=== PATIENT | male | born 1945 | race Caucasian/White ===

== ENCOUNTER 2018-02-09 07:49 | Inpatient (IN) | payer MEDICARE ==
[~2018-02-09] VITALS: Ht 175.3 cm; Wt 105.9 kg
[~2018-02-09 07:49] MED LIST: ALBU90OI INH; AZIT250 PO
[2018-02-09 08:10] LABS: BASOPHILS ABSOLUTE AUTO 0.07 K/mm3 (0.00-0.23); BASOPHILS PERCENT AUTO 0 % (0-2); EOSINOPHILS PERCENT AUTO 0 % (0-6); Hematocrit 49.6 % (37.0-53.0); Hemoglobin 15.8 g/dL (13.5-17.5); IMMATURE GRAN ABSOLUTE AUTO 0.25 K/mm3 (0.00-0.10); IMMATURE GRAN PERCENT AUTO 1 % (0-1); LYMPHOCYTES ABSOLUTE AUTO 0.74 K/mm3 (0.84-5.20); LYMPHOCYTES PERCENT AUTO 3 % (21-46); MONOCYTES ABSOLUTE AUTO 2.31 K/mm3 (0.16-1.47); MONOCYTES PERCENT AUTO 8 % (4-13); Mean Corpuscular HGB 31.2 pg (26.0-34.0); Mean Corpuscular HGB Conc 31.9 g/dL (31.5-36.5); Mean Corpuscular Volume 98 fL (80-100); Mean Platelet Volume 9.3 fL (9.1-12.4); NEUTROPHILS ABSOLUTE AUTO 25.66 K/mm3 (1.96-9.15); NEUTROPHILS PERCENT AUTO 88 % (41-73); Platelet Count 323 K/mm3 (150-400); RDW Coefficient Variation 14.1 % (11.7-14.2); RDW Standard Deviation 51.6 fL (35.1-46.3); Red Blood Cell Count 5.06 M/mm3 (4.30-5.90); White Blood Cell Count 29.03 K/mm3 (4.00-11.30)
[2018-02-09 08:36] LABS: Magnesium, Blood 2.5 mg/dL (1.6-2.4); Troponin I 0.029 ng/mL (0.000-0.040)
[2018-02-09 08:38] LABS: Source, Urine Catheter
[2018-02-09 08:38] LABS: Albumin, Blood 2.9 g/dL (3.4-5.0); Albumin/Globulin Ratio 0.5 (0.8-1.8); Bilirubin, Total 0.6 mg/dL (0.1-1.0); Bun/Creatinine Ratio 18.1 (12.0-20.0); Calcium, Blood 8.7 mg/dL (8.5-10.1); Creatinine, Blood 1.71 mg/dL (0.60-1.20); Globulin, Blood 5.7 g/dL (2.2-4.0); Potassium, Blood 5.7 mmol/L (3.5-5.5); Thyroid Stimulating Hormone 5.44 uIU/mL (0.360-4.800); Total Protein, Blood 8.6 g/dL (6.4-8.2)
[2018-02-09 08:39] LABS: PCO2 Arterial 89.5 mmHg (35-45); PO2 Arterial 346 mmHg (80-100); pH Blood Arterial 7.15 (7.35-7.45)
[2018-02-09 08:44] LABS: Bilirubin, Urine Neg (Neg); Blood, Urine 1+ (Neg); Glucose Qualitative, Urine Neg (Neg); Ketones, Urine Neg (Neg); Leukocyte Esterase, Urine Neg (Neg); Nitrite, Urine Neg (Neg); Protein, Urine 3+ (Neg); Urobilinogen, Urine NORM (Normal)
[2018-02-09 08:54] LABS: Appearance, Urine Clear (Clear); Color, Urine Yellow (P-Yellow)
[2018-02-09 08:57] LABS: Red Blood Cells, Urine 0-2 /hpf (0-2); Squamous Epithelial Cells Not Seen /hpf (Few); White Blood Cells, Urine Not Seen /hpf (0-5)
[2018-02-09 08:58] LABS: Bacteria Not Seen /hpf
[2018-02-09 09:05] LABS: U Amphetamine Screen Not Detected; U Barbituate Screen Not Detected; U Benzodiazapine Screen Not Detected; U Buprenorphine Screen Not Detected; U Cannabinoids Screen DETECTED; U Cocaine Screen Not Detected; U Methadone Screen Not Detected; U Methamphetamine Screen Not Detected; U Opiates Screen Not Detected; U Oxycodone Screen Not Detected; U Phencyclidine Screen Not Detected; U Propoxyphene Screen Not Detected
[2018-02-09 11:03] LABS: International Normalized Ratio 1.17; Prothrombin Time Results 12.2 Sec (9.7-11.5)
[2018-02-09] MEDS ORDERED: SPIRIVA RESPIMAT4 G1 INH (14:57)
[2018-02-09] MEDS ORDERED: ALBU3IS INH (14:57)
[2018-02-09] MEDS ORDERED: AMLO10 PO (14:58)
[2018-02-09] MEDS ORDERED: ASPI81CH PO (14:58)
[2018-02-09] MEDS ORDERED: ATOR20 PO (14:59)
[2018-02-09] MEDS ORDERED: ZESTORETIC 20-121 EA PO (15:00)
[2018-02-09 15:39] LABS: PO2 Arterial 66.2 mmHg (80-100)
[2018-02-09 15:40] LABS: PCO2 Arterial 87.3 mmHg (35-45)
[2018-02-09 16:27] LABS: Hematocrit 42.7 % (37.0-53.0); Hemoglobin 13.6 g/dL (13.5-17.5)
[2018-02-09 16:52] LABS: Bun/Creatinine Ratio 21.8 (12.0-20.0); Calcium, Blood 7.5 mg/dL (8.5-10.1); Creatinine, Blood 1.79 mg/dL (0.60-1.20); Potassium, Blood 4.5 mmol/L (3.5-5.5); Troponin I 0.137 ng/mL (0.000-0.040)
[2018-02-10 03:37] LABS: Hematocrit 41.9 % (37.0-53.0); Hemoglobin 13.6 g/dL (13.5-17.5); Mean Corpuscular HGB 31.2 pg (26.0-34.0); Mean Corpuscular HGB Conc 32.5 g/dL (31.5-36.5); Mean Corpuscular Volume 96 fL (80-100); Mean Platelet Volume 9.1 fL (9.1-12.4); Platelet Count 255 K/mm3 (150-400); RDW Coefficient Variation 13.8 % (11.7-14.2); RDW Standard Deviation 49.5 fL (35.1-46.3); Red Blood Cell Count 4.36 M/mm3 (4.30-5.90); White Blood Cell Count 26.78 K/mm3 (4.00-11.30)
[2018-02-10 04:00] LABS: BAND PERCENT MAN 20 % (0-8); BASOPHILS PERCENT MAN 0 % (0-2); EOSINOPHILS PERCENT MAN 0 % (0-6); LYMPHOCYTES ABSOLUTE MAN 0.26 K/mm3 (0.84-5.20); LYMPHOCYTES PERCENT MAN 1 % (21-46); METAMYELOCYTE ABSOLUTE MAN 0.26 K/mm3 (0.00-0.00); METAMYELOCYTE PERCENT MAN 1 % (0-0); MONOCYTES PERCENT MAN 3 % (4-13); NEUTROPHILS ABSOLUTE MAN 25.44 K/mm3 (1.96-9.15); SEG NEUTROPHILS PERCENT MAN 75 % (41-73); TOTAL CELLS COUNTED 100
[2018-02-10 04:04] LABS: Albumin, Blood 2.2 g/dL (3.4-5.0); Albumin/Globulin Ratio 0.5 (0.8-1.8); Bilirubin, Total 0.4 mg/dL (0.1-1.0); Bun/Creatinine Ratio 27.5 (12.0-20.0); Creatinine, Blood 1.42 mg/dL (0.60-1.20); Globulin, Blood 4.3 g/dL (2.2-4.0); Potassium, Blood 4.1 mmol/L (3.5-5.5); Total Protein, Blood 6.5 g/dL (6.4-8.2)
[2018-02-10 05:24] LABS: PCO2 Arterial 68.5 mmHg (35-45); PO2 Arterial 65.2 mmHg (80-100); pH Blood Arterial 7.29 (7.35-7.45)
[2018-02-11 03:51] LABS: Hematocrit 37.9 % (37.0-53.0); Hemoglobin 12.4 g/dL (13.5-17.5); Mean Corpuscular HGB 31.4 pg (26.0-34.0); Mean Corpuscular HGB Conc 32.7 g/dL (31.5-36.5); Mean Corpuscular Volume 96 fL (80-100); NRBC ABSOLUTE 0.02 K/mm3 (0.00-0.02); NRBC Auto 0.1 /100 WBC (0.0-0.2); Platelet Count 239 K/mm3 (150-400); RDW Standard Deviation 49.9 fL (35.1-46.3); Red Blood Cell Count 3.95 M/mm3 (4.30-5.90)
[2018-02-11 04:08] LABS: Alanine Aminotransfer (ALT/SGP 694 U/L (12-78); Albumin/Globulin Ratio 0.5 (0.8-1.8); Alk Phos 80 U/L (50-136); Anion Gap 5 mmol/L (6-16); Aspartate Aminotrans (AST/SGOT 411 U/L (12-37); Bilirubin, Direct 0.1 mg/dL (0.0-0.3); Bilirubin, Indirect 0.2 mg/dL (0.1-0.7); Bilirubin, Total 0.3 mg/dL (0.1-1.0); Blood Urea Nitrogen 37 mg/dL (8-24); Bun/Creatinine Ratio 37.8 (12.0-20.0); CO2, Blood 34 mmol/L (21-32); Calcium, Blood 7.7 mg/dL (8.5-10.1); Chloride, Blood 96 mmol/L (98-108); Creatinine, Blood 0.98 mg/dL (0.60-1.20); Glomerular Filtration Rate >60 (60-); Glucose, Blood 143 mg/dL (70-99); Magnesium, Blood 2.2 mg/dL (1.6-2.4); Phosphorus, Blood 1.2 mg/dL (2.5-4.9); Potassium, Blood 3.9 mmol/L (3.5-5.5); Sodium, Blood 135 mmol/L (136-145); Vancomycin, Random 7.4 ug/mL
[2018-02-11 04:27] LABS: BAND PERCENT MAN 9 % (0-8); BASOPHILS PERCENT MAN 0 % (0-2); EOSINOPHILS PERCENT MAN 0 % (0-6); LYMPHOCYTES ABSOLUTE MAN 0.17 K/mm3 (0.84-5.20); LYMPHOCYTES PERCENT MAN 1 % (21-46); MONOCYTES ABSOLUTE MAN 0.17 K/mm3 (0.16-1.47); MONOCYTES PERCENT MAN 1 % (4-13); NEUTROPHILS ABSOLUTE MAN 16.95 K/mm3 (1.96-9.15); SEG NEUTROPHILS PERCENT MAN 89 % (41-73); TOTAL CELLS COUNTED 100
[2018-02-11 05:08] LABS: PCO2 Arterial 66.4 mmHg (35-45); PO2 Arterial 65.4 mmHg (80-100); pH Blood Arterial 7.34 (7.35-7.45)
[2018-02-12 03:22] LABS: Hematocrit 40.4 % (37.0-53.0); Hemoglobin 12.7 g/dL (13.5-17.5); Mean Corpuscular HGB 30.6 pg (26.0-34.0); Mean Corpuscular HGB Conc 31.4 g/dL (31.5-36.5); Mean Corpuscular Volume 97 fL (80-100); Mean Platelet Volume 8.7 fL (9.1-12.4); Platelet Count 248 K/mm3 (150-400); RDW Coefficient Variation 14.6 % (11.7-14.2); RDW Standard Deviation 51.8 fL (35.1-46.3); Red Blood Cell Count 4.15 M/mm3 (4.30-5.90); White Blood Cell Count 17.87 K/mm3 (4.00-11.30)
[2018-02-12 03:40] LABS: Magnesium, Blood 2.4 mg/dL (1.6-2.4)
[2018-02-12 03:41] LABS: Alanine Aminotransfer (ALT/SGP 569 U/L (12-78); Albumin, Blood 2.1 g/dL (3.4-5.0); Albumin/Globulin Ratio 0.5 (0.8-1.8); Alk Phos 80 U/L (50-136); Anion Gap 4 mmol/L (6-16); Aspartate Aminotrans (AST/SGOT 206 U/L (12-37); Bilirubin, Total 0.3 mg/dL (0.1-1.0); Blood Urea Nitrogen 32 mg/dL (8-24); Bun/Creatinine Ratio 35.5 (12.0-20.0); CO2, Blood 36 mmol/L (21-32); Calcium, Blood 7.8 mg/dL (8.5-10.1); Chloride, Blood 101 mmol/L (98-108); Globulin, Blood 4.1 g/dL (2.2-4.0); Glomerular Filtration Rate >60 (60-); Glucose, Blood 157 mg/dL (70-99); Phosphorus, Blood 2.4 mg/dL (2.5-4.9); Potassium, Blood 4.4 mmol/L (3.5-5.5); Sodium, Blood 141 mmol/L (136-145); Total Protein, Blood 6.2 g/dL (6.4-8.2)
[2018-02-12 03:50] LABS: BAND PERCENT MAN 4 % (0-8); BASOPHILS PERCENT MAN 0 % (0-2); EOSINOPHILS PERCENT MAN 0 % (0-6); LYMPHOCYTES ABSOLUTE MAN 0.35 K/mm3 (0.84-5.20); LYMPHOCYTES PERCENT MAN 2 % (21-46); MONOCYTES ABSOLUTE MAN 0.89 K/mm3 (0.16-1.47); MONOCYTES PERCENT MAN 5 % (4-13); MYELOCYTE ABSOLUTE MAN 0.17 K/mm3 (0.00-0.00); MYELOCYTE PERCENT MAN 1 % (0-0); NEUTROPHILS ABSOLUTE MAN 16.44 K/mm3 (1.96-9.15); SEG NEUTROPHILS PERCENT MAN 88 % (41-73); TOTAL CELLS COUNTED 100
[2018-02-12 04:58] LABS: PCO2 Arterial 75.8 mmHg (35-45); PO2 Arterial 71.8 mmHg (80-100)
[2018-02-13 03:43] LABS: BASOPHILS ABSOLUTE AUTO 0.04 K/mm3 (0.00-0.23); BASOPHILS PERCENT AUTO 0 % (0-2); EOSINOPHILS PERCENT AUTO 0 % (0-6); Hematocrit 42.4 % (37.0-53.0); Hemoglobin 13.2 g/dL (13.5-17.5); IMMATURE GRAN ABSOLUTE AUTO 0.28 K/mm3 (0.00-0.10); IMMATURE GRAN PERCENT AUTO 2 % (0-1); LYMPHOCYTES ABSOLUTE AUTO 0.41 K/mm3 (0.84-5.20); LYMPHOCYTES PERCENT AUTO 3 % (21-46); MONOCYTES ABSOLUTE AUTO 0.91 K/mm3 (0.16-1.47); MONOCYTES PERCENT AUTO 7 % (4-13); Mean Corpuscular HGB 30.6 pg (26.0-34.0); Mean Corpuscular HGB Conc 31.1 g/dL (31.5-36.5); Mean Corpuscular Volume 98 fL (80-100); Mean Platelet Volume 8.6 fL (9.1-12.4); NEUTROPHILS ABSOLUTE AUTO 11.37 K/mm3 (1.96-9.15); NEUTROPHILS PERCENT AUTO 87 % (41-73); Platelet Count 219 K/mm3 (150-400); RDW Coefficient Variation 14.6 % (11.7-14.2); RDW Standard Deviation 52.9 fL (35.1-46.3); Red Blood Cell Count 4.32 M/mm3 (4.30-5.90); White Blood Cell Count 13.01 K/mm3 (4.00-11.30)
[2018-02-13 04:00] LABS: Alanine Aminotransfer (ALT/SGP 421 U/L (12-78); Albumin, Blood 2.2 g/dL (3.4-5.0); Albumin/Globulin Ratio 0.6 (0.8-1.8); Alk Phos 75 U/L (50-136); Anion Gap 3 mmol/L (6-16); Aspartate Aminotrans (AST/SGOT 89 U/L (12-37); Bilirubin, Total 0.2 mg/dL (0.1-1.0); Blood Urea Nitrogen 39 mg/dL (8-24); Bun/Creatinine Ratio 48.7 (12.0-20.0); CO2, Blood 37 mmol/L (21-32); Calcium, Blood 8.2 mg/dL (8.5-10.1); Chloride, Blood 105 mmol/L (98-108); Glomerular Filtration Rate >60 (60-); Glucose, Blood 171 mg/dL (70-99); Phosphorus, Blood 2.2 mg/dL (2.5-4.9); Potassium, Blood 4.7 mmol/L (3.5-5.5); Sodium, Blood 145 mmol/L (136-145); Total Protein, Blood 6.2 g/dL (6.4-8.2)
[2018-02-13 04:13] LABS: BASOPHILS PERCENT MAN 0 % (0-2); EOSINOPHILS PERCENT MAN 0 % (0-6); LYMPHOCYTES ABSOLUTE MAN 0.39 K/mm3 (0.84-5.20); LYMPHOCYTES PERCENT MAN 3 % (21-46); MONOCYTES ABSOLUTE MAN 0.39 K/mm3 (0.16-1.47); MONOCYTES PERCENT MAN 3 % (4-13); MYELOCYTE ABSOLUTE MAN 0.13 K/mm3 (0.00-0.00); MYELOCYTE PERCENT MAN 1 % (0-0); NEUTROPHILS ABSOLUTE MAN 11.96 K/mm3 (1.96-9.15); PROMYELOCYTE ABSOLUTE MAN 0.13 K/mm3 (0.00-0.00); PROMYELOCYTE PERCENT MAN 1 % (0-0); SEG NEUTROPHILS PERCENT MAN 92 % (41-73); TOTAL CELLS COUNTED 100
[2018-02-13 05:32] LABS: PCO2 Arterial 74.6 mmHg (35-45); PO2 Arterial 63.2 mmHg (80-100); pH Blood Arterial 7.32 (7.35-7.45)
[2018-02-13 08:36] LABS: Vancomycin, Trough 7.2 ug/mL (5.0-10.0)
[2018-02-14 04:46] LABS: BASOPHILS PERCENT AUTO 1 % (0-2); EOSINOPHILS PERCENT AUTO 0 % (0-6); Hematocrit 43.6 % (37.0-53.0); Hemoglobin 13.6 g/dL (13.5-17.5); IMMATURE GRAN ABSOLUTE AUTO 0.58 K/mm3 (0.00-0.10); IMMATURE GRAN PERCENT AUTO 5 % (0-1); LYMPHOCYTES ABSOLUTE AUTO 0.61 K/mm3 (0.84-5.20); LYMPHOCYTES PERCENT AUTO 5 % (21-46); MONOCYTES ABSOLUTE AUTO 0.97 K/mm3 (0.16-1.47); MONOCYTES PERCENT AUTO 8 % (4-13); Mean Corpuscular HGB 30.4 pg (26.0-34.0); Mean Corpuscular HGB Conc 31.2 g/dL (31.5-36.5); Mean Corpuscular Volume 98 fL (80-100); Mean Platelet Volume 8.7 fL (9.1-12.4); NEUTROPHILS ABSOLUTE AUTO 10.66 K/mm3 (1.96-9.15); NEUTROPHILS PERCENT AUTO 83 % (41-73); Platelet Count 221 K/mm3 (150-400); RDW Coefficient Variation 14.7 % (11.7-14.2); RDW Standard Deviation 53.3 fL (35.1-46.3); Red Blood Cell Count 4.47 M/mm3 (4.30-5.90); White Blood Cell Count 12.92 K/mm3 (4.00-11.30)
[2018-02-14 05:16] LABS: Anion Gap 4 mmol/L (6-16); Blood Urea Nitrogen 38 mg/dL (8-24); Bun/Creatinine Ratio 48.7 (12.0-20.0); CO2, Blood 35 mmol/L (21-32); Calcium, Blood 8.2 mg/dL (8.5-10.1); Chloride, Blood 107 mmol/L (98-108); Creatinine, Blood 0.78 mg/dL (0.60-1.20); Glomerular Filtration Rate >60 (60-); Glucose, Blood 139 mg/dL (70-99); Phosphorus, Blood 2.7 mg/dL (2.5-4.9); Potassium, Blood 4.9 mmol/L (3.5-5.5); Sodium, Blood 146 mmol/L (136-145)
[2018-02-14 05:24] LABS: PCO2 Arterial 69.7 mmHg (35-45); PO2 Arterial 61.5 mmHg (80-100); pH Blood Arterial 7.38 (7.35-7.45)
[2018-02-15 03:54] LABS: BASOPHILS ABSOLUTE AUTO 0.06 K/mm3 (0.00-0.23); BASOPHILS PERCENT AUTO 1 % (0-2); EOSINOPHILS PERCENT AUTO 0 % (0-6); Hematocrit 43.9 % (37.0-53.0); Hemoglobin 13.8 g/dL (13.5-17.5); IMMATURE GRAN ABSOLUTE AUTO 0.57 K/mm3 (0.00-0.10); IMMATURE GRAN PERCENT AUTO 5 % (0-1); LYMPHOCYTES ABSOLUTE AUTO 0.54 K/mm3 (0.84-5.20); LYMPHOCYTES PERCENT AUTO 5 % (21-46); MONOCYTES ABSOLUTE AUTO 0.81 K/mm3 (0.16-1.47); MONOCYTES PERCENT AUTO 7 % (4-13); Mean Corpuscular HGB 30.6 pg (26.0-34.0); Mean Corpuscular HGB Conc 31.4 g/dL (31.5-36.5); Mean Corpuscular Volume 97 fL (80-100); Mean Platelet Volume 8.5 fL (9.1-12.4); NEUTROPHILS ABSOLUTE AUTO 9.81 K/mm3 (1.96-9.15); NEUTROPHILS PERCENT AUTO 83 % (41-73); NRBC ABSOLUTE 0.02 K/mm3 (0.00-0.02); NRBC Auto 0.2 /100 WBC (0.0-0.2); Platelet Count 202 K/mm3 (150-400); RDW Coefficient Variation 14.4 % (11.7-14.2); RDW Standard Deviation 52.1 fL (35.1-46.3); Red Blood Cell Count 4.51 M/mm3 (4.30-5.90); White Blood Cell Count 11.79 K/mm3 (4.00-11.30)
[2018-02-15 04:11] LABS: Alanine Aminotransfer (ALT/SGP 236 U/L (12-78); Albumin, Blood 2.3 g/dL (3.4-5.0); Albumin/Globulin Ratio 0.6 (0.8-1.8); Alk Phos 71 U/L (50-136); Anion Gap 1 mmol/L (6-16); Aspartate Aminotrans (AST/SGOT 44 U/L (12-37); Bilirubin, Total 0.4 mg/dL (0.1-1.0); Blood Urea Nitrogen 36 mg/dL (8-24); Bun/Creatinine Ratio 51.7 (12.0-20.0); CO2, Blood 41 mmol/L (21-32); Calcium, Blood 8.3 mg/dL (8.5-10.1); Chloride, Blood 103 mmol/L (98-108); Globulin, Blood 3.9 g/dL (2.2-4.0); Glomerular Filtration Rate >60 (60-); Glucose, Blood 136 mg/dL (70-99); Potassium, Blood 5.3 mmol/L (3.5-5.5); Sodium, Blood 145 mmol/L (136-145); Total Protein, Blood 6.2 g/dL (6.4-8.2)
[2018-02-16 04:23] LABS: BASOPHILS ABSOLUTE AUTO 0.06 K/mm3 (0.00-0.23); BASOPHILS PERCENT AUTO 1 % (0-2); EOSINOPHILS PERCENT AUTO 0 % (0-6); Hematocrit 43.5 % (37.0-53.0); Hemoglobin 13.9 g/dL (13.5-17.5); IMMATURE GRAN ABSOLUTE AUTO 0.57 K/mm3 (0.00-0.10); IMMATURE GRAN PERCENT AUTO 4 % (0-1); LYMPHOCYTES ABSOLUTE AUTO 0.45 K/mm3 (0.84-5.20); LYMPHOCYTES PERCENT AUTO 3 % (21-46); MONOCYTES ABSOLUTE AUTO 0.83 K/mm3 (0.16-1.47); MONOCYTES PERCENT AUTO 6 % (4-13); Mean Corpuscular HGB 30.5 pg (26.0-34.0); Mean Corpuscular Volume 95 fL (80-100); Mean Platelet Volume 8.7 fL (9.1-12.4); NEUTROPHILS ABSOLUTE AUTO 11.18 K/mm3 (1.96-9.15); NEUTROPHILS PERCENT AUTO 85 % (41-73); Platelet Count 192 K/mm3 (150-400); RDW Coefficient Variation 14.3 % (11.7-14.2); RDW Standard Deviation 50.1 fL (35.1-46.3); Red Blood Cell Count 4.56 M/mm3 (4.30-5.90); White Blood Cell Count 13.09 K/mm3 (4.00-11.30)
[2018-02-16 04:49] LABS: Alanine Aminotransfer (ALT/SGP 169 U/L (12-78); Albumin, Blood 2.2 g/dL (3.4-5.0); Albumin/Globulin Ratio 0.6 (0.8-1.8); Alk Phos 63 U/L (50-136); Anion Gap 4 mmol/L (6-16); Aspartate Aminotrans (AST/SGOT 33 U/L (12-37); Bilirubin, Total 0.7 mg/dL (0.1-1.0); Blood Urea Nitrogen 36 mg/dL (8-24); Bun/Creatinine Ratio 50.6 (12.0-20.0); CO2, Blood 40 mmol/L (21-32); Calcium, Blood 8.3 mg/dL (8.5-10.1); Chloride, Blood 98 mmol/L (98-108); Creatinine, Blood 0.71 mg/dL (0.60-1.20); Globulin, Blood 3.7 g/dL (2.2-4.0); Glomerular Filtration Rate >60 (60-); Glucose, Blood 156 mg/dL (70-99); Sodium, Blood 142 mmol/L (136-145); Total Protein, Blood 5.9 g/dL (6.4-8.2)
[2018-02-17 04:12] LABS: BASOPHILS ABSOLUTE AUTO 0.03 K/mm3 (0.00-0.23); BASOPHILS PERCENT AUTO 0 % (0-2); EOSINOPHILS PERCENT AUTO 0 % (0-6); Hematocrit 43.1 % (37.0-53.0); Hemoglobin 13.8 g/dL (13.5-17.5); IMMATURE GRAN ABSOLUTE AUTO 0.48 K/mm3 (0.00-0.10); IMMATURE GRAN PERCENT AUTO 4 % (0-1); LYMPHOCYTES ABSOLUTE AUTO 0.69 K/mm3 (0.84-5.20); LYMPHOCYTES PERCENT AUTO 5 % (21-46); MONOCYTES ABSOLUTE AUTO 1.16 K/mm3 (0.16-1.47); MONOCYTES PERCENT AUTO 9 % (4-13); Mean Corpuscular HGB 30.7 pg (26.0-34.0); Mean Corpuscular Volume 96 fL (80-100); Mean Platelet Volume 8.7 fL (9.1-12.4); NEUTROPHILS ABSOLUTE AUTO 10.83 K/mm3 (1.96-9.15); NEUTROPHILS PERCENT AUTO 82 % (41-73); Platelet Count 169 K/mm3 (150-400); RDW Coefficient Variation 14.2 % (11.7-14.2); RDW Standard Deviation 50.3 fL (35.1-46.3); White Blood Cell Count 13.19 K/mm3 (4.00-11.30)
[2018-02-17 04:29] LABS: Alanine Aminotransfer (ALT/SGP 129 U/L (12-78); Albumin, Blood 2.3 g/dL (3.4-5.0); Albumin/Globulin Ratio 0.7 (0.8-1.8); Alk Phos 60 U/L (50-136); Anion Gap 3 mmol/L (6-16); Aspartate Aminotrans (AST/SGOT 30 U/L (12-37); Bilirubin, Total 0.5 mg/dL (0.1-1.0); Blood Urea Nitrogen 32 mg/dL (8-24); CO2, Blood 41 mmol/L (21-32); Calcium, Blood 8.1 mg/dL (8.5-10.1); Chloride, Blood 98 mmol/L (98-108); Globulin, Blood 3.5 g/dL (2.2-4.0); Glomerular Filtration Rate >60 (60-); Glucose, Blood 115 mg/dL (70-99); Potassium, Blood 4.8 mmol/L (3.5-5.5); Sodium, Blood 142 mmol/L (136-145); Total Protein, Blood 5.8 g/dL (6.4-8.2)
[2018-02-18 06:08] LABS: BASOPHILS ABSOLUTE AUTO 0.03 K/mm3 (0.00-0.23); BASOPHILS PERCENT AUTO 0 % (0-2); EOSINOPHILS ABSOLUTE AUTO 0.01 K/mm3 (0.00-0.68); EOSINOPHILS PERCENT AUTO 0 % (0-6); Hemoglobin 13.8 g/dL (13.5-17.5); IMMATURE GRAN ABSOLUTE AUTO 0.35 K/mm3 (0.00-0.10); IMMATURE GRAN PERCENT AUTO 3 % (0-1); LYMPHOCYTES ABSOLUTE AUTO 1.25 K/mm3 (0.84-5.20); LYMPHOCYTES PERCENT AUTO 10 % (21-46); MONOCYTES PERCENT AUTO 10 % (4-13); Mean Corpuscular HGB 30.7 pg (26.0-34.0); Mean Corpuscular HGB Conc 32.1 g/dL (31.5-36.5); Mean Corpuscular Volume 96 fL (80-100); NEUTROPHILS ABSOLUTE AUTO 9.59 K/mm3 (1.96-9.15); NEUTROPHILS PERCENT AUTO 77 % (41-73); Platelet Count 160 K/mm3 (150-400); RDW Coefficient Variation 14.1 % (11.7-14.2); RDW Standard Deviation 49.8 fL (35.1-46.3); Red Blood Cell Count 4.49 M/mm3 (4.30-5.90); White Blood Cell Count 12.53 K/mm3 (4.00-11.30)
[2018-02-18 06:28] LABS: Alanine Aminotransfer (ALT/SGP 104 U/L (12-78); Albumin, Blood 2.2 g/dL (3.4-5.0); Albumin/Globulin Ratio 0.6 (0.8-1.8); Alk Phos 60 U/L (50-136); Anion Gap 2 mmol/L (6-16); Aspartate Aminotrans (AST/SGOT 32 U/L (12-37); Bilirubin, Total 0.6 mg/dL (0.1-1.0); Blood Urea Nitrogen 30 mg/dL (8-24); Bun/Creatinine Ratio 44.4 (12.0-20.0); CO2, Blood 41 mmol/L (21-32); Chloride, Blood 97 mmol/L (98-108); Creatinine, Blood 0.68 mg/dL (0.60-1.20); Globulin, Blood 3.5 g/dL (2.2-4.0); Glomerular Filtration Rate >60 (60-); Glucose, Blood 120 mg/dL (70-99); Potassium, Blood 4.9 mmol/L (3.5-5.5); Sodium, Blood 140 mmol/L (136-145); Total Protein, Blood 5.7 g/dL (6.4-8.2)
[2018-02-20 06:46] LABS: Hematocrit 42.7 % (37.0-53.0); Hemoglobin 13.9 g/dL (13.5-17.5); Mean Corpuscular HGB 30.8 pg (26.0-34.0); Mean Corpuscular HGB Conc 32.6 g/dL (31.5-36.5); Mean Corpuscular Volume 95 fL (80-100); Mean Platelet Volume 9.7 fL (9.1-12.4); Platelet Count 166 K/mm3 (150-400); RDW Standard Deviation 48.8 fL (35.1-46.3); Red Blood Cell Count 4.52 M/mm3 (4.30-5.90); White Blood Cell Count 13.64 K/mm3 (4.00-11.30)
[2018-02-20 07:13] LABS: Albumin, Blood 2.4 g/dL (3.4-5.0); Anion Gap 3 mmol/L (6-16); Blood Urea Nitrogen 24 mg/dL (8-24); CO2, Blood 38 mmol/L (21-32); Calcium, Blood 8.1 mg/dL (8.5-10.1); Chloride, Blood 96 mmol/L (98-108); Creatinine, Blood 0.71 mg/dL (0.60-1.20); Glomerular Filtration Rate >60 (60-); Glucose, Blood 74 mg/dL (70-99); Phosphorus, Blood 3.3 mg/dL (2.5-4.9); Potassium, Blood 4.4 mmol/L (3.5-5.5); Sodium, Blood 137 mmol/L (136-145)
[2018-02-22] MEDS ORDERED: ALBU90OI INH (09:41)
[2018-02-22] MEDS ORDERED: Ipratr-Albuterol3 ML INH (09:41)
[2018-02-22] MEDS ORDERED: DOCU100 PO (09:42)
[2018-02-22] MEDS ORDERED: BUDE.5 INH (09:42)
[2018-02-22] MEDS ORDERED: GUAI600T33 PO (09:42)
[2018-02-22] MEDS ORDERED: PRED10 PO (09:43)
[2018-02-22] MEDS ORDERED: CEFU500T30 PO (09:44)
== END 2018-02-23 13:58 | disposition home or self-care (01) | DRG 871 ==
LOC: ER 07:49 → ICUW 09:07 → MEDS 02-17 10:40 → ENPENDDIS 02-22 23:33 → MEDS 02-23 13:58
PROVIDERS: Emergency Medicine; Internal Medicine; Internal Medicine Critical Care Medicine; Internal Medicine Pulmonary Disease; Pharmacist
PROC: 0BH17EZ Insertion of Endotracheal Airway into Trachea, Via Natural or Artificial Opening (ICD-10-PCS; principal; 2018-02-09)
PROC: 5A1945Z Respiratory Ventilation, 24-96 Consecutive Hours (ICD-10-PCS; 2018-02-09)
PROC: 02HV33Z Insertion of Infusion Device into Superior Vena Cava, Percutaneous Approach (ICD-10-PCS; 2018-02-09)
PROC: 3E033XZ Introduction of Vasopressor into Peripheral Vein, Percutaneous Approach (ICD-10-PCS; 2018-02-11)
DX: A41.3 Sepsis due to Hemophilus influenzae (principal); J96.21 Acute and chronic respiratory failure with hypoxia; J96.22 Acute and chronic respiratory failure with hypercapnia; R65.21 Severe sepsis with septic shock; I21.4 Non-ST elevation (NSTEMI) myocardial infarction; J15.6 Pneumonia due to other Gram-negative bacteria; J15.8 Pneumonia due to other specified bacteria; J44.1 Chronic obstructive pulmonary disease with (acute) exacerbation; G93.1 Anoxic brain damage, not elsewhere classified; N17.9 Acute kidney failure, unspecified; J44.0 Chronic obstructive pulmonary disease with (acute) lower respiratory infection; E87.1 Hypo-osmolality and hyponatremia; Z68.41 Body mass index [BMI] 40.0-44.9, adult; I95.9 Hypotension, unspecified; E78.5 Hyperlipidemia, unspecified; I27.81 Cor pulmonale (chronic); I11.0 Hypertensive heart disease with heart failure; I50.810 Right heart failure, unspecified; E11.9 Type 2 diabetes mellitus without complications; Z79.4 Long term (current) use of insulin; R79.89 Other specified abnormal findings of blood chemistry; F17.210 Nicotine dependence, cigarettes, uncomplicated; R74.0 Nonspecific elevation of levels of transaminase and lactic acid dehydrogenase [LDH]; R53.81 Other malaise; E87.5 Hyperkalemia; E66.01 Morbid (severe) obesity due to excess calories
CPT/HCPCS: 31500; 31720; 36556; 36600; 51702; 70450; 71045; 71250; 74176; 80048; 80053; 80069; 80076; 80202; 81001; 82330; 82803; 82947; 83605; 83735; 83880; 84100; 84443; 84484; 85014; 85018; 85025; 85027; 85610; 87040; 87070; 87077; 87185; 87186; 87205; 93005; 93010; 93306; 94002; 94003; 94640; 94644; 94660; 94762; 96365; 96375; 96376; 97110; 97116; 97140; 97162; 97166; 97530; 97535; 99291; 99292; C1751; C9113; G8978; G8979; G8987; G8988; J0610; J0696; J1650; J1815; J1940; J1956; J2250; J2930; J3370; J7030; J7050; J7060; J7120

== ENCOUNTER 2018-06-14 11:54 | Day surgery (SDC) | payer OTHER, MEDICARE ==
[~2018-06-14] VITALS: Ht 172.7 cm; Wt 103.0 kg
[~2018-06-14 11:54] MED LIST changes: +ALBU3IS INH; +AMLO10 PO; +ASPI81CH PO; +ATOR20 PO; +BUDE.5 INH; +CEFU500T30 PO; +DOCU100 PO; +GUAI600T33 PO; +Ipratr-Albuterol3 ML INH; +PRED10 PO; +SPIRIVA RESPIMAT4 G1 INH; +ZESTORETIC 20-121 EA PO
[2018-06-14] MEDS ORDERED: TIOT18 (12:30)
== END 2018-06-14 11:55 | disposition home or self-care (01) ==
LOC: ORSCSDS 11:54
PROVIDERS: Internal Medicine Gastroenterology
PROC: 0DBK8ZX Excision of Ascending Colon, Via Natural or Artificial Opening Endoscopic, Diagnostic (ICD-10-PCS; principal; 2018-06-14 13:15)
PROC: 0DBP8ZX Excision of Rectum, Via Natural or Artificial Opening Endoscopic, Diagnostic (ICD-10-PCS; principal; 2018-06-14 13:15)
PROC: 0DBL8ZX Excision of Transverse Colon, Via Natural or Artificial Opening Endoscopic, Diagnostic (ICD-10-PCS; principal; 2018-06-14 13:15)
PROC: 0DBM8ZX Excision of Descending Colon, Via Natural or Artificial Opening Endoscopic, Diagnostic (ICD-10-PCS; principal; 2018-06-14 13:15)
DX: Z86.010 Personal history of colon polyps (principal); D12.3 Benign neoplasm of transverse colon; D12.2 Benign neoplasm of ascending colon; D12.4 Benign neoplasm of descending colon; D12.8 Benign neoplasm of rectum; K57.30 Diverticulosis of large intestine without perforation or abscess without bleeding; K64.8 Other hemorrhoids; I10 Essential (primary) hypertension; J44.9 Chronic obstructive pulmonary disease, unspecified; Z99.81 Dependence on supplemental oxygen; Z79.899 Other long term (current) drug therapy; Z79.82 Long term (current) use of aspirin
CPT/HCPCS: J2405; J7120

== ENCOUNTER 2020-07-03 12:30 | Day surgery (SDC) | payer OTHER, MEDICARE ==
[~2020-07-03] VITALS: Ht 167.6 cm; Wt 106.0 kg
[~2020-07-03 12:30] MED LIST changes: +ALBU8HFA2 INH; +ATOR40TA PO; +Aspir 8181 MG PO; +LISI20 PO; +TIOT18; +TIOT18 INH
--- NOTE | 2020-07-03 13:38 | NUR ---
07/03/20 1338 Rosalie Blackburn IV ATTEMPTS X4, 4TH IV ATTEMPT WAS SUCCESSFUL TO LEFT HAND. PT TOLERATED WELL.
== END 2020-07-03 15:20 | disposition home or self-care (01) ==
LOC: ORSCSDS 12:30
DX: Z12.11 Encounter for screening for malignant neoplasm of colon (principal); Z86.010 Personal history of colon polyps; K64.8 Other hemorrhoids; K64.4 Residual hemorrhoidal skin tags; K57.30 Diverticulosis of large intestine without perforation or abscess without bleeding; I10 Essential (primary) hypertension; J44.9 Chronic obstructive pulmonary disease, unspecified; F32.9 Major depressive disorder, single episode, unspecified; Z87.891 Personal history of nicotine dependence; G47.33 Obstructive sleep apnea (adult) (pediatric); E66.9 Obesity, unspecified; Z68.36 Body mass index [BMI] 36.0-36.9, adult; Z79.82 Long term (current) use of aspirin; Z79.899 Other long term (current) drug therapy
CPT/HCPCS: 88305; J2704; J7120

== ENCOUNTER 2024-08-01 12:37 | Inpatient (IN) | payer OTHER ==
[~2024-08-01] VITALS: Ht 175.3 cm; Wt 108.9 kg
[2024-08-01] VITALS (7 sets, daily range): BP systolic 118–136; BP diastolic 63–74
[2024-08-01 13:10] LABS: Hematocrit 19.3 % (37.0-53.0); Hemoglobin 6.7 g/dL (13.5-17.5); Mean Corpuscular HGB 32.5 pg (26.0-34.0); Mean Corpuscular HGB Conc 34.7 g/dL (31.5-36.5); Mean Corpuscular Volume 94 fL (80-100); Mean Platelet Volume 11.3 fL (9.1-12.4); Platelet Count 79 K/mm3 (150-400); RDW Coefficient Variation 13.2 % (11.7-14.2); RDW Standard Deviation 45.1 fL (35.1-46.3); Red Blood Cell Count 2.06 M/mm3 (4.30-5.90); White Blood Cell Count 13.52 K/mm3 (4.00-11.30)
[2024-08-01] MEDS ORDERED: STIOLTO RESPIMAT4 G1 INH (14:43)
[2024-08-01] MEDS ORDERED: Lisinopril-Hct1 EAC4 PO (14:44)
[2024-08-01] MEDS ORDERED: DECADRON4 M1 PO (14:44)
[2024-08-01] MEDS ORDERED: FOLI1 PO (14:45)
[2024-08-01 15:08] LABS: BAND PERCENT MAN 15 % (0-8); BASOPHILS PERCENT MAN 0 % (0-2); EOSINOPHILS PERCENT MAN 0 % (0-6); LYMPHOCYTES PERCENT MAN 3 % (21-46); METAMYELOCYTE ABSOLUTE MAN 0.27 K/mm3 (0.00-0.00); METAMYELOCYTE PERCENT MAN 2 % (0-0); MONOCYTES ABSOLUTE MAN 0.94 K/mm3 (0.16-1.47); MONOCYTES PERCENT MAN 7 % (4-13); MYELOCYTE ABSOLUTE MAN 0.13 K/mm3 (0.00-0.00); MYELOCYTE PERCENT MAN 1 % (0-0); NEUTROPHILS ABSOLUTE MAN 11.76 K/mm3 (1.96-9.15); SEG NEUTROPHILS PERCENT MAN 72 % (41-73); TOTAL CELLS COUNTED 100
[2024-08-01] MEDS ORDERED: Ondansetron HCl 2 MG / ML 2ML Vial IV PRN (16:00)
[2024-08-01] MEDS ORDERED: HydrALAZINE HCl 20 MG / ML 1ML Vial IV PRN (16:00)
[2024-08-01] MEDS ORDERED: FLU VACC TS2024-25(6MOS UP)/PF 45 MCG/0.5 ML SYRINGE IM SCH (16:00)
[2024-08-01] MEDS ORDERED: NS 1,000 ML IV SCH (16:00)
[2024-08-01] MEDS ORDERED: Potassium Chloride 20 MEQ TabCR PO ONE (16:05)
[2024-08-01] MEDS ORDERED: Magnesium Hydroxide Conc 10 ML UDC PO PRN (16:05)
[2024-08-01] MEDS ORDERED: Albuterol HFA200 ACT/6.7 GM INH INH PRN (16:05)
[2024-08-01] MEDS ORDERED: Ipratropium/Albuterol SulF 2.5-0.5MG/3 ML Amp INH SCH (16:15)
[2024-08-01 16:24] LABS: Percent Saturation 12.7 % (20.0-50.0)
--- NOTE | 2024-08-01 19:03 | NUR ---
SHIFT SUMMARY PT ARRIVED ON UNIT AT 1750 AND AMBULATED INDEPENDENTLY TO THE BED. 1ST BAG OF PRBC INFUSED WITH NO CONCERNS. NO ADVERSE REACTIONS NOTED. VSS, NO COMPLAINTS OF CP/PRESSURE. PT INDEPENDENTLY REPOSITIONED. NO ACUTE EVENTS AT THIS TIME. FALL PRECAUTIONS IN PLACE AND CALL LIGHT IN REACH.
[2024-08-01] MEDS ORDERED: dexAMETHasone 4 MG TAB PO SCH (21:00)
[2024-08-02 04:31] VITALS: BP 111/60
--- NOTE | 2024-08-02 05:17 | NUR ---
STONE POLISHER HAND SUMMARY NO ACUTE EVENTS OVERNIGHT. PT HAS RECEIVED 2 UNITS OF BLOOD SINCE COMING INTO THE HOSPITAL. HE STILL ENDORSES SOB WITH EXERTION AND AN INCREASED RESPIRATORY RATE HAS BEEN NOTED ON HIS TRIPS TO THE BATHROOM. NO SIGNS OF BLEEDING. PT DENIES WEAKNESS OR DIZZINESS ASSOCIATED WITH HIS ANEMIA.
[2024-08-02 05:55] LABS: Hematocrit 23.8 % (37.0-53.0); Hemoglobin 8.5 g/dL (13.5-17.5); Mean Corpuscular HGB Conc 35.7 g/dL (31.5-36.5); Platelet Count 112 K/mm3 (150-400); RDW Coefficient Variation 14.6 % (11.7-14.2); RDW Standard Deviation 46.4 fL (35.1-46.3); Red Blood Cell Count 2.74 M/mm3 (4.30-5.90); White Blood Cell Count 13.52 K/mm3 (4.00-11.30)
[2024-08-02 06:40] LABS: Bun/Creatinine Ratio 24.8 (12.0-20.0); Calcium, Blood 8.3 mg/dL (8.5-10.1); Creatinine, Blood 2.58 mg/dL (0.60-1.20); Potassium, Blood 3.7 mmol/L (3.5-5.5)
[2024-08-02 07:37] VITALS: BP 109/57
[2024-08-02 07:49] LABS: Mean Corpuscular Volume 87 fL (80-100)
[2024-08-02] MEDS ORDERED: Folic Acid 1 MG TAB PO SCH (09:00)
[2024-08-02] MEDS ORDERED: Aspirin 81 MG TabEC PO SCH (09:00)
[2024-08-02] MEDS ORDERED: AmLODIPine Besylate 5 MG Tab PO SCH (09:00)
[2024-08-02 14:32] VITALS: BP 120/61
[2024-08-02] MEDS ORDERED: Acetaminophen 325 MG TABLET PO PRN (15:00)
--- NOTE | 2024-08-02 18:13 | NUR ---
REPORT RECEIVED VERIFIED. A/O X4 KASHIA MAKES NEEDS KNOWN, PT VSS AND HAS NO COMPLAINTS. POSSIBLE DISCHARGE TODAY AND IS AWAITING ON MD
--- NOTE | 2024-08-02 18:15 | NUR ---
PT TAKEN FOR CHEST XRAY, AFTER RETURNED MD INTO SEE PT AND WILL MAKE A DECISION ONCE XRAY RESULTS BACK.
--- NOTE | 2024-08-02 18:16 | NUR ---
PT HAD ADDITIONAL LABS DRAWN AND WILL BE STAYING THE NIGHT. PT ALSO SPIKED A FEVER LEADING TO BLOOD CULTURES TO BE DRAWN,
[2024-08-02 19:22] VITALS: BP 120/61
[2024-08-03 02:07] VITALS: BP 104/57
--- NOTE | 2024-08-03 03:58 | NUR ---
INSULATION POWER UNIT TENDER SUMMARY NO ACUTE EVENTS OVERNIGHT. PT CONTINUES TO EXPERIENCE SOB WITH EXERTION, NOTED THAT HIS RESPIRATORY RATE CLIMBED TO ABOUT 30 ON HIS SHORT WALK TO THE BATHROOM. NO DIZZINESS OR WEAKNESS. NO SIGNS OF BLEEDING. POSSIBLE D/C TODAY. IF VQ SCAN IS WNL
[2024-08-03 07:15] VITALS: BP 114/62
[2024-08-03 07:54] LABS: Hematocrit 24.3 % (37.0-53.0); Hemoglobin 8.3 g/dL (13.5-17.5); Mean Corpuscular HGB 31.1 pg (26.0-34.0); Mean Corpuscular HGB Conc 34.2 g/dL (31.5-36.5); Mean Corpuscular Volume 91 fL (80-100); Platelet Count 152 K/mm3 (150-400); RDW Coefficient Variation 14.5 % (11.7-14.2); RDW Standard Deviation 47.9 fL (35.1-46.3); Red Blood Cell Count 2.67 M/mm3 (4.30-5.90); White Blood Cell Count 14.74 K/mm3 (4.00-11.30)
[2024-08-03] MEDS ORDERED: Amoxicillin/Clavulanate K 500 MG Tab PO SCH (09:00)
[2024-08-03] MEDS ORDERED: AMOCLA500 PO (11:55)
--- NOTE | 2024-08-03 12:34 | NUR ---
1235 DISCHARGED TO HOME WITH SPOUSE. BOTH VERBALIZE UNDERSTANDING OF DISCHARGE INSTRUCTIONS AND DENY ANY QUESTIONS REGARDING DISCHARGE
--- NOTE | 2024-08-03 14:17 | NUR ---
REPORT RECEIVED VERIFIED, PT A/O X 4 VSS, PT DOWN VQ SCAN AND IS AWAITING POSSIBLE DISCHARGE.
--- NOTE | 2024-08-03 14:19 | NUR ---
PT BACK FROM STUDY NO CHANGE. DISCHARGE ORDERS GIVEN AND IMPLEMENTED. IV DCED MONITOR REMOVED. PT TAKEN DOWNSTAIRS
== END 2024-08-03 12:33 | disposition home or self-care (01) | DRG 811 ==
LOC: ER 12:37 → MEDS 12:38
PROVIDERS: Emergency Medicine; ADMIT Internal Medicine
PROC: 30233N1 Transfusion of Nonautologous Red Blood Cells into Peripheral Vein, Percutaneous Approach (ICD-10-PCS; principal; 2024-08-01)
DX: D64.81 Anemia due to antineoplastic chemotherapy (principal); J18.9 Pneumonia, unspecified organism; C34.90 Malignant neoplasm of unspecified part of unspecified bronchus or lung; N17.9 Acute kidney failure, unspecified; N18.4 Chronic kidney disease, stage 4 (severe); I12.9 Hypertensive chronic kidney disease with stage 1 through stage 4 chronic kidney disease, or unspecified chronic kidney disease; T45.1X5A Adverse effect of antineoplastic and immunosuppressive drugs, initial encounter; D69.6 Thrombocytopenia, unspecified; E87.6 Hypokalemia; Z79.82 Long term (current) use of aspirin; Z79.899 Other long term (current) drug therapy; Z90.49 Acquired absence of other specified parts of digestive tract; Z87.891 Personal history of nicotine dependence
CPT/HCPCS: 36415; 36430; 71046; 78580; 80048; 82728; 83540; 83550; 85025; 85027; 85379; 86850; 86900; 86901; 86923; 94640; 94664; 94760; 99284-25; A9270; A9540; G0378; J7030; P9016

== ENCOUNTER 2024-09-10 14:53 | Observation (INO) | payer OTHER ==
[~2024-09-10] VITALS: Ht 175.3 cm; Wt 104.3 kg
[~2024-09-10 14:53] MED LIST changes: +AMOCLA500 PO; +DECADRON4 M1 PO; +FOLI1 PO; +Lisinopril-Hct1 EAC4 PO; +STIOLTO RESPIMAT4 G1 INH
[2024-09-10 15:36] LABS: BASOPHILS ABSOLUTE AUTO 0.02 K/mm3 (0.00-0.23); BASOPHILS PERCENT AUTO 0 % (0-2); EOSINOPHILS ABSOLUTE AUTO 0.21 K/mm3 (0.00-0.68); EOSINOPHILS PERCENT AUTO 3 % (0-6); IMMATURE GRAN ABSOLUTE AUTO 0.05 K/mm3 (0.00-0.10); IMMATURE GRAN PERCENT AUTO 1 % (0-1); LYMPHOCYTES ABSOLUTE AUTO 0.66 K/mm3 (0.84-5.20); LYMPHOCYTES PERCENT AUTO 9 % (21-46); MONOCYTES ABSOLUTE AUTO 1.47 K/mm3 (0.16-1.47); MONOCYTES PERCENT AUTO 19 % (4-13); Mean Corpuscular HGB 31.1 pg (26.0-34.0); Mean Corpuscular HGB Conc 33.7 g/dL (31.5-36.5); Mean Corpuscular Volume 92 fL (80-100); Mean Platelet Volume 8.9 fL (9.1-12.4); NEUTROPHILS ABSOLUTE AUTO 5.23 K/mm3 (1.96-9.15); NEUTROPHILS PERCENT AUTO 69 % (41-73); Platelet Count 293 K/mm3 (150-400); RDW Coefficient Variation 15.3 % (11.7-14.2); RDW Standard Deviation 51.4 fL (35.1-46.3); White Blood Cell Count 7.64 K/mm3 (4.00-11.30)
[2024-09-10 15:40] LABS: Hematocrit 16.6 % (37.0-53.0); Hemoglobin 5.6 g/dL (13.5-17.5)
[2024-09-10 15:58] LABS: Albumin, Blood 2.3 g/dL (3.4-5.0); Albumin/Globulin Ratio 0.4 (0.8-1.8); Bilirubin, Total 0.5 mg/dL (0.1-1.0); Calcium, Blood 8.3 mg/dL (8.5-10.1); Creatinine, Blood 3.01 mg/dL (0.60-1.20); Globulin, Blood 5.6 g/dL (2.2-4.0); Potassium, Blood 2.8 mmol/L (3.5-5.5); Total Protein, Blood 7.9 g/dL (6.4-8.2)
[2024-09-10] MEDS ORDERED: Ipratropium/Albuterol SulF 2.5-0.5MG/3 ML Amp INH PRN (18:55)
[2024-09-10] MEDS ORDERED: Potassium Chloride 20 MEQ/15 ML UDC PO ONE (19:40)
[2024-09-10] MEDS ORDERED: Potassium Chl 20MEQ/Water100ML 100 ML IV ONE (19:40)
[2024-09-10] MEDS ORDERED: Albuterol 2.5 MG/3 ML VIAL INH PRN (20:20)
[2024-09-10] MEDS ORDERED: FLU VACC TS2024-25(6MOS UP)/PF 45 MCG/0.5 ML SYRINGE IM ONE (20:25)
[2024-09-10] MEDS ORDERED: Ondansetron HCl 2 MG / ML 2ML Vial IV PRN (20:25)
[2024-09-10] MEDS ORDERED: Ipratropium/Albuterol SulF 2.5-0.5MG/3 ML Amp INH SCH (20:25)
[2024-09-10] MEDS ORDERED: Furosemide 10 MG/ML 4ML Vial IV SCH (21:00)
[2024-09-10 21:15] LABS: Percent Saturation 9.2 % (20.0-50.0); Thyroid Stimulating Hormone 2.11 uIU/mL (0.360-4.800)
[2024-09-10 22:29] LABS: IMMATURE RETIC FRACTION 15.8 % (2.3-16.0); RETIC HGB EQUIVALENT 29.1 pg (28.20-36.60); RETICULOCYTE ABSOLUTE 0.0559 M/mm3 (0.0200-0.1100); RETICULOCYTE COUNT PERCENT 2.84 % (0.50-2.50)
[2024-09-11 04:00] LABS: Hematocrit 20.4 % (37.0-53.0); Hemoglobin 7.1 g/dL (13.5-17.5); Mean Corpuscular HGB 31.4 pg (26.0-34.0); Mean Corpuscular HGB Conc 34.8 g/dL (31.5-36.5); Mean Corpuscular Volume 90 fL (80-100); Mean Platelet Volume 9.1 fL (9.1-12.4); Platelet Count 267 K/mm3 (150-400); RDW Coefficient Variation 14.8 % (11.7-14.2); RDW Standard Deviation 48.6 fL (35.1-46.3); Red Blood Cell Count 2.26 M/mm3 (4.30-5.90); White Blood Cell Count 8.66 K/mm3 (4.00-11.30)
[2024-09-11 04:38] LABS: Magnesium, Blood 1.9 mg/dL (1.6-2.4)
[2024-09-11 04:39] LABS: Albumin, Blood 2.3 g/dL (3.4-5.0); Albumin/Globulin Ratio 0.4 (0.8-1.8); Bilirubin, Total 1.4 mg/dL (0.1-1.0); Calcium, Blood 8.2 mg/dL (8.5-10.1); Creatinine, Blood 2.94 mg/dL (0.60-1.20); Globulin, Blood 5.4 g/dL (2.2-4.0); Potassium, Blood 2.9 mmol/L (3.5-5.5); Total Protein, Blood 7.7 g/dL (6.4-8.2)
[2024-09-11] MEDS ORDERED: Potassium Chloride 20 MEQ TabCR PO ONE (07:30)
[2024-09-11] MEDS ORDERED: Iron Dextran 50 MG / ML 2ML Vial IV ONE (07:40)
[2024-09-11 08:24] LABS: Hematocrit 21.4 % (37.0-53.0); Hemoglobin 7.3 g/dL (13.5-17.5)
[2024-09-11] MEDS ORDERED: Metoprolol Tartrate 25 MG Tab PO SCH (09:00)
[2024-09-11] MEDS ORDERED: AmLODIPine Besylate 5 MG Tab PO SCH (09:00)
[2024-09-11] MEDS ORDERED: Iron Dextran 975 MG in NS 250 ML IV ONE (09:00)
[2024-09-11 09:24] VITALS: BP 138/82
[2024-09-11 09:28] LABS: Hematocrit 22.2 % (37.0-53.0); Hemoglobin 7.5 g/dL (13.5-17.5)
--- NOTE | 2024-09-11 10:28 | NUR ---
ARRIVAL TO UNIT AFTER RECEIVING REPORT FROM ED RN, PATIENT TRANSFERRED TO UNIT AT APPROX 0915. PATIENT ALERT AND ORIENTED X4. IS [place] - COMMUNICATES NEEDS EFFECTIVELY. WEARING HEARING AIDES. VSS. TELEMETRY SHOWING SINUS 80s PER BOAT PILOT. ON ROOM AIR, SATs >90%. MILD SHORTNESS OF BREATH AT REST, SHORTNESS OF BREATH INCREASES WITH ACTIVITY. USES CPAP WITH 2L BLEED IN WITH SLEEP - HX OF SRAVAN. ABLE TO STAND AND TRANSFER FROM ED GURNEY TO BED WITH SBA. VOIDING. CALL LIGHT IN REACH.
[2024-09-11 14:14] VITALS: BP 129/64
--- NOTE | 2024-09-11 17:36 | NUR ---
SHIFT SUMMARY NO ACUTE EVENTS SINCE PREVIOUS DOCUMENTATION. PATIENT REMAINS ALERT AND ORIENTED X4. COMMUNICATES NEEDS EFFECTIVELY. VSS. NO EVENTS REPORTED BY TRAINING AND DEVELOPMENT MANAGER. REMAINS ON ROOM AIR. CONTINUED SHORTNESS OF BREATH NOTED WITH REST AND ACTIVITY. H/H REMAINS STABLE - HGB >7. DENIES BLOODY STOOL. UP TO RESTROOM WITH SBA. VOIDING. CALL LIGHT IN REACH. WILL CONTINUE TO MONITOR AND REPORT TO ONCOMING RN.
[2024-09-11 20:20] VITALS: BP 136/71
[2024-09-11] MEDS ORDERED: Tamsulosin HCl 0.4 MG Cap PO SCH (21:00)
[2024-09-12 04:27] VITALS: BP 132/67
[2024-09-12 05:04] LABS: Hematocrit 24.7 % (37.0-53.0); Hemoglobin 8.4 g/dL (13.5-17.5); Mean Corpuscular HGB 31.6 pg (26.0-34.0); Mean Corpuscular Volume 93 fL (80-100); Mean Platelet Volume 9.1 fL (9.1-12.4); Platelet Count 337 K/mm3 (150-400); RDW Coefficient Variation 15.2 % (11.7-14.2); RDW Standard Deviation 51.9 fL (35.1-46.3); Red Blood Cell Count 2.66 M/mm3 (4.30-5.90)
[2024-09-12 05:31] LABS: Creatinine, Blood 2.93 mg/dL (0.60-1.20); Potassium, Blood 3.1 mmol/L (3.5-5.5)
--- NOTE | 2024-09-12 07:06 | NUR ---
SHIFT SUMMARY NOC. PT ADMIT FOR ANEMIA. PT A/O X4. PT WASHOE AND WEARS AIDS. PT VOIDING URINE AND TOLERATING DIET. PT VSS, TELEMETRY INTACT AND NO REPORTED EVENTS. H&H IMPROVING. PT MAKES NEEDS KNOWN, CALL LIGHT IN REACH.
[2024-09-12 07:16] VITALS: BP 137/61
[2024-09-12] MEDS ORDERED: Potassium Chloride 20 MEQ TabCR PO ONE (08:05)
[2024-09-12] MEDS ORDERED: TAMS.4ER PO (08:48)
[2024-09-12] MEDS ORDERED: Lopressor 25 mg25 MG PO (08:48)
--- NOTE | 2024-09-12 10:14 | NUR ---
DISCHARGE NOTE THIS RN ASSUMED CARE AT APPROX 0715. VSS. SHORTNESS OF BREATH WITH MOBILITY NOTED - RECEIVED BREATHING TX FROM RT THIS MORNING. SATs >90% ON ROOM AIR. HEMOGLOBIN IMPROVED, >7. DC HOME ORDERED BY MD FELDMAN. PATIENT AGREEABLE WITH DC HOME. IV REMOVED. TELEMETRY REMOVED. DC EDUCATION PROVIDED TO BOTH PATIENT AND HIS - BOTH STATE UNDERSTANDING. PATIENT TRANSFERRED OFF UNIT TO PERSONAL VEHICLE VIA WHEELCHAIR AT APPROX 1010. PERSONAL BELONGINGS WITH PATIENT.
== END 2024-09-12 10:08 | disposition home or self-care (01) ==
LOC: ER 14:53 → ERHOLD 14:54 → SURS 20:20
PROVIDERS: Internal Medicine; Nurse Practitioner Acute Care; Physician Assistant; Student in an Organized Health Care Education/Training Program; ADMIT Internal Medicine
DX: D64.9 Anemia, unspecified (principal); C34.90 Malignant neoplasm of unspecified part of unspecified bronchus or lung; N17.9 Acute kidney failure, unspecified; I13.0 Hypertensive heart and chronic kidney disease with heart failure and stage 1 through stage 4 chronic kidney disease, or unspecified chronic kidney disease; N18.4 Chronic kidney disease, stage 4 (severe); I50.9 Heart failure, unspecified; E87.6 Hypokalemia; J44.9 Chronic obstructive pulmonary disease, unspecified; G47.33 Obstructive sleep apnea (adult) (pediatric); Z87.891 Personal history of nicotine dependence; Z66 Do not resuscitate
CPT/HCPCS: 36415; 36430; 71046; 76770; 80048; 80053; 82570; 82607; 82746; 83540; 83550; 83735; 83880; 84300; 84443; 84484; 85014; 85018; 85025; 85027; 85045; 86850; 86900; 86901; 86923; 93005; 93010; 93306; 94640; 94664; 94760; 94762; 96374; 96375; 96376; 99285-25; A9270; G0378; J1750; J1940; J3480; J7050; P9016

== ENCOUNTER 2024-09-19 13:45 | Inpatient (IN) | payer OTHER ==
[~2024-09-19] VITALS: Ht 175.3 cm; Wt 101.0 kg
[~2024-09-19 13:45] MED LIST changes: +Lopressor 25 mg25 MG PO; +TAMS.4ER PO
[2024-09-19 14:28] LABS: BASOPHILS ABSOLUTE AUTO 0.04 K/mm3 (0.00-0.23); BASOPHILS PERCENT AUTO 0 % (0-2); EOSINOPHILS ABSOLUTE AUTO 0.01 K/mm3 (0.00-0.68); EOSINOPHILS PERCENT AUTO 0 % (0-6); Hematocrit 25.2 % (37.0-53.0); Hemoglobin 8.2 g/dL (13.5-17.5); IMMATURE GRAN ABSOLUTE AUTO 0.22 K/mm3 (0.00-0.10); IMMATURE GRAN PERCENT AUTO 1 % (0-1); LYMPHOCYTES ABSOLUTE AUTO 0.36 K/mm3 (0.84-5.20); LYMPHOCYTES PERCENT AUTO 2 % (21-46); MONOCYTES ABSOLUTE AUTO 2.52 K/mm3 (0.16-1.47); MONOCYTES PERCENT AUTO 10 % (4-13); Mean Corpuscular HGB 31.2 pg (26.0-34.0); Mean Corpuscular HGB Conc 32.5 g/dL (31.5-36.5); Mean Corpuscular Volume 96 fL (80-100); Mean Platelet Volume 9.3 fL (9.1-12.4); NEUTROPHILS ABSOLUTE AUTO 21.18 K/mm3 (1.96-9.15); NEUTROPHILS PERCENT AUTO 87 % (41-73); Platelet Count 364 K/mm3 (150-400); RDW Coefficient Variation 14.7 % (11.7-14.2); RDW Standard Deviation 51.4 fL (35.1-46.3); Red Blood Cell Count 2.63 M/mm3 (4.30-5.90); White Blood Cell Count 24.33 K/mm3 (4.00-11.30)
[2024-09-19 14:38] LABS: Base Excess Venous 5.9 mmol/L; Bicarbonate Venous 29.1 mmol/L (24.0-30.0); PCO2 Venous 52.1 mmHg (38-42); pH Blood Venous 7.38 (7.34-7.37)
[2024-09-19 14:47] LABS: Albumin, Blood 2.1 g/dL (3.4-5.0); Albumin/Globulin Ratio 0.3 (0.8-1.8); Bilirubin, Total 0.5 mg/dL (0.1-1.0); Bun/Creatinine Ratio 19.7 (12.0-20.0); Creatinine, Blood 2.38 mg/dL (0.60-1.20); Globulin, Blood 6.3 g/dL (2.2-4.0); Potassium, Blood 3.4 mmol/L (3.5-5.5); Total Protein, Blood 8.4 g/dL (6.4-8.2)
[2024-09-19 15:17] LABS: Influenza A, PCR NEGATIVE (NEGATIVE); Influenza B, PCR NEGATIVE (NEGATIVE); Resp Syncytial Virus, PCR NEGATIVE (NEGATIVE); SARS-Cov-2 (COVID-19) PCR, MMC NEGATIVE (NEGATIVE)
[2024-09-19] MEDS ORDERED: Furosemide 10 MG / ML 2ML Vial IV ONE (15:45)
[2024-09-19] MEDS ORDERED: Cefepime HCl 2,000 MG in NS 100 ML IV ONE (15:45)
[2024-09-19] MEDS ORDERED: Ondansetron 4 MG TAB PO PRN (16:50)
[2024-09-19] MEDS ORDERED: FLU VACC TS2024-25(6MOS UP)/PF 45 MCG/0.5 ML SYRINGE IM SCH (16:50)
[2024-09-19] MEDS ORDERED: MethylPREDNISolone Sod Succ 125 MG Vial IV ONE (16:55)
[2024-09-19] MEDS ORDERED: Potassium Chloride 20 MEQ TabCR PO SCH (18:00)
[2024-09-19 18:08] LABS: Adenovirus Not Detected (NOT DETECT); Bordetella pertussis Not Detected (NOT DETECT); Chlamydophila pneumoniae Not Detected (NOT DETECT); Coronavirus 229E Not Detected (NOT DETECT); Coronavirus HKU1 Not Detected (NOT DETECT); Coronavirus NL63 Not Detected (NOT DETECT); Coronavirus OC43 Not Detected (NOT DETECT); Human Metapneumovirus Not Detected (NOT DETECT); Human Rhinovirus/Enterovirus Not Detected (NOT DETECT); Influenza A/2009-H1 Not Detected (NOT DETECT); Influenza A/H1 Not Detected (NOT DETECT); Influenza A/H3 Not Detected (NOT DETECT); Influenza B Not Detected (NOT DETECT); Mycoplasma pneumoniae Not Detected (NOT DETECT); Parainfluenza Virus 1 Not Detected (NOT DETECT); Parainfluenza Virus 2 Not Detected (NOT DETECT); Parainfluenza Virus 3 Not Detected (NOT DETECT); Parainfluenza Virus 4 Not Detected (NOT DETECT); Respiratory Syncytial Virus Not Detected (NOT DETECT); SARS-Cov-2 (COVID-19), BioFire Not Detected (NOT DETECT)
[2024-09-19 18:31] VITALS: BP 112/64
[2024-09-19] MEDS ORDERED: Ipratropium/Albuterol SulF 2.5-0.5MG/3 ML Amp INH SCH (19:30)
[2024-09-19] MEDS ORDERED: Albuterol 2.5 MG/3 ML VIAL INH PRN (19:30)
[2024-09-19 20:06] VITALS: BP 126/63
[2024-09-19] MEDS ORDERED: Lactobacil 2-S.Thermo-Bifido 1 1 Cap PO SCH (21:00)
[2024-09-19] MEDS ORDERED: Docusate Sodium 100 MG Cap PO SCH (21:00)
[2024-09-19 23:59] VITALS: BP 129/69
[2024-09-20 03:57] VITALS: BP 126/69
[2024-09-20 05:51] LABS: BASOPHILS ABSOLUTE AUTO 0.04 K/mm3 (0.00-0.23); BASOPHILS PERCENT AUTO 0 % (0-2); EOSINOPHILS ABSOLUTE AUTO 0.03 K/mm3 (0.00-0.68); EOSINOPHILS PERCENT AUTO 0 % (0-6); Hematocrit 23.8 % (37.0-53.0); Hemoglobin 7.5 g/dL (13.5-17.5); IMMATURE GRAN ABSOLUTE AUTO 0.15 K/mm3 (0.00-0.10); IMMATURE GRAN PERCENT AUTO 1 % (0-1); LYMPHOCYTES ABSOLUTE AUTO 0.26 K/mm3 (0.84-5.20); LYMPHOCYTES PERCENT AUTO 1 % (21-46); MONOCYTES ABSOLUTE AUTO 1.13 K/mm3 (0.16-1.47); MONOCYTES PERCENT AUTO 5 % (4-13); Mean Corpuscular HGB 30.6 pg (26.0-34.0); Mean Corpuscular HGB Conc 31.5 g/dL (31.5-36.5); Mean Corpuscular Volume 97 fL (80-100); Mean Platelet Volume 9.2 fL (9.1-12.4); NEUTROPHILS ABSOLUTE AUTO 20.38 K/mm3 (1.96-9.15); NEUTROPHILS PERCENT AUTO 93 % (41-73); Platelet Count 330 K/mm3 (150-400); RDW Coefficient Variation 14.6 % (11.7-14.2); RDW Standard Deviation 51.2 fL (35.1-46.3); Red Blood Cell Count 2.45 M/mm3 (4.30-5.90); White Blood Cell Count 21.99 K/mm3 (4.00-11.30)
[2024-09-20] MEDS ORDERED: Cefepime HCl 2,000 MG in NS 100 ML IV SCH (06:00)
[2024-09-20 06:24] LABS: Albumin/Globulin Ratio 0.3 (0.8-1.8); Bilirubin, Total 0.3 mg/dL (0.1-1.0); Bun/Creatinine Ratio 22.7 (12.0-20.0); Calcium, Blood 9.2 mg/dL (8.5-10.1); Creatinine, Blood 2.56 mg/dL (0.60-1.20); Globulin, Blood 6.2 g/dL (2.2-4.0); Magnesium, Blood 2.2 mg/dL (1.6-2.4); Potassium, Blood 3.1 mmol/L (3.5-5.5); Total Protein, Blood 8.2 g/dL (6.4-8.2)
[2024-09-20 07:45] VITALS: BP 122/81
[2024-09-20] MEDS ORDERED: Potassium Chloride 40 MEQ in NS 250 ML IV ONE (08:20)
[2024-09-20] MEDS ORDERED: Furosemide 10 MG / ML 2ML Vial IV SCH (09:00)
[2024-09-20] MEDS ORDERED: Heparin Sodium 5000 Units/ML 1ML MDV SC SCH (09:00)
[2024-09-20] MEDS ORDERED: NS 250 ML IV PRN (09:25)
[2024-09-20 11:27] VITALS: BP 137/73
[2024-09-20] MEDS ORDERED: MethylPREDNISolone Sod Succ 40 MG VIAL IV SCH ×2 (18:00)
[2024-09-20 19:45] VITALS: BP 143/70
[2024-09-20 23:06] VITALS: BP 122/67
[2024-09-21 05:25] LABS: BASOPHILS ABSOLUTE AUTO 0.03 K/mm3 (0.00-0.23); BASOPHILS PERCENT AUTO 0 % (0-2); EOSINOPHILS PERCENT AUTO 0 % (0-6); Hematocrit 25.5 % (37.0-53.0); Hemoglobin 8.1 g/dL (13.5-17.5); IMMATURE GRAN ABSOLUTE AUTO 0.31 K/mm3 (0.00-0.10); IMMATURE GRAN PERCENT AUTO 2 % (0-1); LYMPHOCYTES ABSOLUTE AUTO 0.35 K/mm3 (0.84-5.20); LYMPHOCYTES PERCENT AUTO 2 % (21-46); MONOCYTES ABSOLUTE AUTO 0.79 K/mm3 (0.16-1.47); MONOCYTES PERCENT AUTO 4 % (4-13); Mean Corpuscular HGB Conc 31.8 g/dL (31.5-36.5); Mean Corpuscular Volume 98 fL (80-100); Mean Platelet Volume 9.4 fL (9.1-12.4); NEUTROPHILS ABSOLUTE AUTO 19.84 K/mm3 (1.96-9.15); NEUTROPHILS PERCENT AUTO 93 % (41-73); Platelet Count 366 K/mm3 (150-400); RDW Coefficient Variation 14.7 % (11.7-14.2); RDW Standard Deviation 52.6 fL (35.1-46.3); Red Blood Cell Count 2.61 M/mm3 (4.30-5.90); White Blood Cell Count 21.32 K/mm3 (4.00-11.30)
[2024-09-21 05:37] VITALS: BP 128/74
[2024-09-21 05:52] LABS: Albumin, Blood 2.1 g/dL (3.4-5.0); Albumin/Globulin Ratio 0.4 (0.8-1.8); Bilirubin, Total 0.6 mg/dL (0.1-1.0); Bun/Creatinine Ratio 24.3 (12.0-20.0); Calcium, Blood 9.6 mg/dL (8.5-10.1); Creatinine, Blood 2.76 mg/dL (0.60-1.20); Potassium, Blood 3.9 mmol/L (3.5-5.5); Total Protein, Blood 8.1 g/dL (6.4-8.2)
[2024-09-21 08:02] VITALS: BP 124/59
[2024-09-21] MEDS ORDERED: Metoprolol Tartrate 25 MG Tab PO SCH (11:00)
[2024-09-21] MEDS ORDERED: Tamsulosin HCl 0.4 MG Cap PO SCH (11:00)
[2024-09-21 11:18] VITALS: BP 123/67
[2024-09-21 15:37] VITALS: BP 132/72
[2024-09-21 20:10] VITALS: BP 130/73
[2024-09-21 21:01] VITALS: BP 144/63
[2024-09-22 04:26] VITALS: BP 131/73
[2024-09-22 06:25] LABS: Albumin, Blood 2.1 g/dL (3.4-5.0); Albumin/Globulin Ratio 0.4 (0.8-1.8); BASOPHILS ABSOLUTE AUTO 0.04 K/mm3 (0.00-0.23); BASOPHILS PERCENT AUTO 0 % (0-2); Bilirubin, Total 0.3 mg/dL (0.1-1.0); Bun/Creatinine Ratio 32.3 (12.0-20.0); Calcium, Blood 9.1 mg/dL (8.5-10.1); Creatinine, Blood 2.48 mg/dL (0.60-1.20); EOSINOPHILS PERCENT AUTO 0 % (0-6); Globulin, Blood 5.6 g/dL (2.2-4.0); Hemoglobin 7.3 g/dL (13.5-17.5); IMMATURE GRAN ABSOLUTE AUTO 0.68 K/mm3 (0.00-0.10); IMMATURE GRAN PERCENT AUTO 3 % (0-1); LYMPHOCYTES ABSOLUTE AUTO 0.35 K/mm3 (0.84-5.20); LYMPHOCYTES PERCENT AUTO 2 % (21-46); MONOCYTES ABSOLUTE AUTO 0.97 K/mm3 (0.16-1.47); MONOCYTES PERCENT AUTO 5 % (4-13); Mean Corpuscular HGB 31.3 pg (26.0-34.0); Mean Corpuscular HGB Conc 31.7 g/dL (31.5-36.5); Mean Corpuscular Volume 99 fL (80-100); Mean Platelet Volume 9.4 fL (9.1-12.4); NEUTROPHILS ABSOLUTE AUTO 18.03 K/mm3 (1.96-9.15); NEUTROPHILS PERCENT AUTO 90 % (41-73); NRBC ABSOLUTE 0.02 K/mm3 (0.00-0.02); NRBC Auto 0.1 /100 WBC (0.0-0.2); Platelet Count 326 K/mm3 (150-400); Potassium, Blood 4.3 mmol/L (3.5-5.5); RDW Coefficient Variation 14.7 % (11.7-14.2); RDW Standard Deviation 53.3 fL (35.1-46.3); Red Blood Cell Count 2.33 M/mm3 (4.30-5.90); Total Protein, Blood 7.7 g/dL (6.4-8.2); White Blood Cell Count 20.07 K/mm3 (4.00-11.30)
[2024-09-22 07:25] VITALS: BP 129/71
[2024-09-22 07:42] LABS: IMMATURE RETIC FRACTION 14.6 % (2.3-16.0); RETIC HGB EQUIVALENT 29.9 pg (28.20-36.60); RETICULOCYTE ABSOLUTE 0.0602 M/mm3 (0.0200-0.1100); RETICULOCYTE COUNT PERCENT 2.55 % (0.50-2.50)
[2024-09-22 08:16] LABS: Percent Saturation 66.3 % (20.0-50.0)
[2024-09-22 15:35] VITALS: BP 133/68
[2024-09-22 19:32] VITALS: BP 137/73
[2024-09-23 04:06] VITALS: BP 137/77
[2024-09-23 05:36] LABS: Hematocrit 26.3 % (37.0-53.0); Hemoglobin 8.2 g/dL (13.5-17.5); Mean Corpuscular HGB 30.8 pg (26.0-34.0); Mean Corpuscular HGB Conc 31.2 g/dL (31.5-36.5); Mean Corpuscular Volume 99 fL (80-100); Mean Platelet Volume 9.3 fL (9.1-12.4); Platelet Count 369 K/mm3 (150-400); RDW Coefficient Variation 14.7 % (11.7-14.2); RDW Standard Deviation 53.5 fL (35.1-46.3); Red Blood Cell Count 2.66 M/mm3 (4.30-5.90); White Blood Cell Count 20.74 K/mm3 (4.00-11.30)
[2024-09-23 06:07] LABS: Albumin, Blood 2.4 g/dL (3.4-5.0); Albumin/Globulin Ratio 0.4 (0.8-1.8); Bilirubin, Total 0.3 mg/dL (0.1-1.0); Bun/Creatinine Ratio 36.4 (12.0-20.0); Calcium, Blood 9.7 mg/dL (8.5-10.1); Creatinine, Blood 2.28 mg/dL (0.60-1.20); Globulin, Blood 6.2 g/dL (2.2-4.0); Potassium, Blood 4.9 mmol/L (3.5-5.5); Total Protein, Blood 8.6 g/dL (6.4-8.2)
[2024-09-23 06:22] LABS: BAND PERCENT MAN 6 % (0-8); BASOPHILS PERCENT MAN 0 % (0-2); EOSINOPHILS PERCENT MAN 0 % (0-6); LYMPHOCYTES ABSOLUTE MAN 0.41 K/mm3 (0.84-5.20); LYMPHOCYTES PERCENT MAN 2 % (21-46); MONOCYTES ABSOLUTE MAN 1.03 K/mm3 (0.16-1.47); MONOCYTES PERCENT MAN 5 % (4-13); MYELOCYTE PERCENT MAN 1 % (0-0); NEUTROPHILS ABSOLUTE MAN 19.08 K/mm3 (1.96-9.15); SEG NEUTROPHILS PERCENT MAN 86 % (41-73); TOTAL CELLS COUNTED 100
[2024-09-23 07:53] VITALS: BP 153/109
[2024-09-23] MEDS ORDERED: Furosemide 10 MG/ML 4ML Vial IV SCH (11:51)
[2024-09-23] MEDS ORDERED: TAMS.4ER PO (13:41)
[2024-09-23] MEDS ORDERED: AMOCLA875 PO (13:42)
[2024-09-23] MEDS ORDERED: PRED20 PO (13:44)
[2024-09-24] MEDS ORDERED: Furosemide 10 MG/ML 4ML Vial IV SCH (09:00)
[2024-09-24] MEDS ORDERED: AMOCLA875 PO (18:03)
[2024-09-24] MEDS ORDERED: Prednisone20 MG PO (18:03)
== END 2024-09-23 15:45 | disposition home or self-care (01) | DRG 871 ==
LOC: ER 13:45 → PCU 16:48 → MEDS 09-21 20:57
PROVIDERS: Emergency Medicine; ADMIT Internal Medicine
PROC: 5A0935A Assistance with Respiratory Ventilation, Less than 24 Consecutive Hours, High Flow/Velocity Cannula (ICD-10-PCS; principal; 2024-09-19)
PROC: 3E03329 Introduction of Other Anti-infective into Peripheral Vein, Percutaneous Approach (ICD-10-PCS; 2024-09-19)
PROC: 5A09357 Assistance with Respiratory Ventilation, Less than 24 Consecutive Hours, Continuous Positive Airway Pressure (ICD-10-PCS; 2024-09-19)
DX: A41.9 Sepsis, unspecified organism (principal); J18.9 Pneumonia, unspecified organism; J96.21 Acute and chronic respiratory failure with hypoxia; J96.22 Acute and chronic respiratory failure with hypercapnia; N18.4 Chronic kidney disease, stage 4 (severe); J44.1 Chronic obstructive pulmonary disease with (acute) exacerbation; C34.90 Malignant neoplasm of unspecified part of unspecified bronchus or lung; J44.0 Chronic obstructive pulmonary disease with (acute) lower respiratory infection; I13.0 Hypertensive heart and chronic kidney disease with heart failure and stage 1 through stage 4 chronic kidney disease, or unspecified chronic kidney disease; I50.32 Chronic diastolic (congestive) heart failure; J70.0 Acute pulmonary manifestations due to radiation; R65.20 Severe sepsis without septic shock; E78.5 Hyperlipidemia, unspecified; F17.210 Nicotine dependence, cigarettes, uncomplicated; E87.6 Hypokalemia; D63.1 Anemia in chronic kidney disease; R73.9 Hyperglycemia, unspecified; R33.9 Retention of urine, unspecified; Z90.49 Acquired absence of other specified parts of digestive tract; Z79.82 Long term (current) use of aspirin; Z79.899 Other long term (current) drug therapy
CPT/HCPCS: 0202U; 0241U; 36415; 71045; 71046; 71250; 80053; 82607; 82728; 82746; 82803; 83540; 83550; 83605; 83735; 83880; 84145; 84484; 85025; 85045; 86850; 86900; 86901; 87040; 87070; 87205; 93005; 93010; 94640; 94660; 94664; 94761; 94762; 96365; 96375; 99285-25; A9270; J0692; J1644; J1940; J2919; J3480; J7050

== ENCOUNTER 2024-09-24 14:00 | Inpatient (IN) | payer OTHER ==
[~2024-09-24] VITALS: Ht 177.8 cm; Wt 98.9 kg
[~2024-09-24 14:00] MED LIST changes: +AMOCLA875 PO; +PRED20 PO
[2024-09-24 14:53] LABS: Hematocrit 26.3 % (37.0-53.0); Hemoglobin 8.4 g/dL (13.5-17.5); Mean Corpuscular HGB 30.8 pg (26.0-34.0); Mean Corpuscular HGB Conc 31.9 g/dL (31.5-36.5); Mean Corpuscular Volume 96 fL (80-100); NRBC ABSOLUTE 0.05 K/mm3 (0.00-0.02); NRBC Auto 0.2 /100 WBC (0.0-0.2); Platelet Count 364 K/mm3 (150-400); RDW Coefficient Variation 14.9 % (11.7-14.2); RDW Standard Deviation 51.8 fL (35.1-46.3); Red Blood Cell Count 2.73 M/mm3 (4.30-5.90); White Blood Cell Count 20.26 K/mm3 (4.00-11.30)
[2024-09-24 15:13] LABS: Albumin, Blood 2.3 g/dL (3.4-5.0); Albumin/Globulin Ratio 0.4 (0.8-1.8); Bilirubin, Total 0.3 mg/dL (0.1-1.0); Bun/Creatinine Ratio 40.6 (12.0-20.0); Calcium, Blood 9.4 mg/dL (8.5-10.1); Creatinine, Blood 2.07 mg/dL (0.60-1.20); Globulin, Blood 5.8 g/dL (2.2-4.0); Potassium, Blood 4.7 mmol/L (3.5-5.5); Total Protein, Blood 8.1 g/dL (6.4-8.2)
[2024-09-24 15:13] LABS: Bicarbonate Venous 33.2 mmol/L (24.0-30.0); PCO2 Venous 51.8 mmHg (38-42); pH Blood Venous 7.44 (7.34-7.37)
[2024-09-24 15:33] LABS: BASOPHILS PERCENT MAN 0 % (0-2); EOSINOPHILS PERCENT MAN 1 % (0-6); LYMPHOCYTES ABSOLUTE MAN 1.21 K/mm3 (0.84-5.20); LYMPHOCYTES PERCENT MAN 6 % (21-46); METAMYELOCYTE PERCENT MAN 1 % (0-0); MONOCYTES ABSOLUTE MAN 2.02 K/mm3 (0.16-1.47); MONOCYTES PERCENT MAN 10 % (4-13); MYELOCYTE PERCENT MAN 2 % (0-0); SEG NEUTROPHILS PERCENT MAN 80 % (41-73); TOTAL CELLS COUNTED 100
[2024-09-24] MEDS ORDERED: PredniSONE 20 MG Tab PO ONE (17:45)
[2024-09-24] MEDS ORDERED: Amoxicillin/Clavulanate K 875 MG Tab PO ONE (17:45)
[2024-09-24] MEDS ORDERED: Prednisone20 MG PO (18:03)
[2024-09-24] MEDS ORDERED: AMOCLA875 PO (18:03)
[2024-09-24] MEDS ORDERED: Albuterol HFA200 ACT/6.7 GM INH INH PRN (20:40)
[2024-09-24] MEDS ORDERED: Tamsulosin HCl 0.4 MG Cap PO SCH (21:00)
[2024-09-24] MEDS ORDERED: Ipratropium/Albuterol SulF 2.5-0.5MG/3 ML Amp INH SCH (21:05)
[2024-09-24] MEDS ORDERED: Cefepime HCl 1,000 MG in NS 100 ML IV SCH (22:00)
[2024-09-24] MEDS ORDERED: Melatonin 5 MG Tablet PO ONE (23:00)
[2024-09-24] MEDS ORDERED: QUEtiapine Fumarate 50 MG TAB PO SCH (23:00)
[2024-09-24] MEDS ORDERED: Melatonin 5 MG Tablet PO PRN (23:00)
[2024-09-24 23:07] VITALS: BP 149/64
--- NOTE | 2024-09-24 23:52 | NUR ---
PATIENT IS A NEW ADMIT FROM THE ED. ALERT TO SELF, CONFUSED, AND ONE ASSIST FROM [facility] TO BED AFTER REFUSING TO LEAVE [facility]. ED RN EUGENIA REPORTS PATIENT HAD ED SITTER, GETS OUT OF BED, AND IS NOT REDIRECTABLE. CATHODE RAY TUBE ASSEMBLER NOTIFIED AND REPORTS NO SITTER AVAILABLE. ON 2L O2 N/C PULLING OFF IN THE ED. ED REPORT PATIENT RECENTLY HERE 09/19-09/23/24 AND BACK AGAIN THIS AM AND DC'D. ED REPORT PATIENT WAS DC'D ON OXYGEN AND MEDICATION TO INTERVENTION ANALYST AND NON COMPLAINT. ED RN EUGENIA GAVE SEROQUEL 50 MG AND MELATONIN 5 MG TO DEAL WITH AGITATION BEFORE COMING TO MEDICAL FLOOR. PATIENT REFUSED IV PLACEMENT IN ED. PATIENT DROWSY AT THIS TIME. NO FAMILY PRESENT. BED ALARM ACTIVATED. WCTM.
[2024-09-25] MEDS ORDERED: OLANZapine 10 MG Vial IM ONE (00:35)
--- NOTE | 2024-09-25 00:47 | NUR ---
PATIENT MULTIPLE OUT OF BED ATTEMPTS ACTIVATING ALARM. HOSPITALIST DR TORRES ORDERED BILATERAL SOFT WRIST RESTRAINTS AND IM ZYPREXA 5 MG X ONE. WCTM.
[2024-09-25] MEDS ORDERED: NS 250 ML IV PRN (01:05)
--- NOTE | 2024-09-25 02:05 | NUR ---
OK'D HOLDING DOSE AND RESUMING AT 0800 D/T NO IV ACCESS. HE AGREED TO PLAN FOR IV INSERTION UPON AWAKING SINCE PT HAS BEEN RESTLESS, AGGITATED, IMPULSIVE AND HAS REQUIRED IM ZXPREXA AND SOFT WRIST RESTRAINTS. HE'S NOW SLEEPING W/O S/S DISTRESS. WILL ENSURE PRIMARY RN AWARE OF PLAN.
--- NOTE | 2024-09-25 03:00 | NUR ---
PATIENT SLEEPING SINCE GIVEN IM ZYPREXA 5 MG TWO HOURS AGO. WCTM.
--- NOTE | 2024-09-25 04:23 | NUR ---
SHIFT SUMMARY PATIENT HAD NO ACUTE CHANGES. ALERT TO SELF AND BEDREST. BILATERAL SOFT WRIST RESTRAINTS PER ORDER. ON 2L O2 NC. IM ZYPREXA 5 MG GIVEN X ONE FOR AGITATION. NO IV WITH PATIENT REFUSING. DR TORRES AWARE AND REPORTS TO TRY ON DAY SHIFT OR WHEN MORE ALERT AND LESS AGITATED. TELE MONITOR NSR 80. USES URINAL IN BED WITH ASSIST. DENIES CHEST PAIN AND N/V. SLEEPING SINCE IM ZYPREXA 5 MG GIVEN. CALL LIGHT IN REACH. BED IN LOWEST POSITION AND ALARM ACTIVATED. WCTM UNTIL DAY SHIFT NURSE ASSUMES CARE.
[2024-09-25 07:51] LABS: Hematocrit 26.7 % (37.0-53.0); Hemoglobin 8.2 g/dL (13.5-17.5); Mean Corpuscular HGB 31.1 pg (26.0-34.0); Mean Corpuscular HGB Conc 30.7 g/dL (31.5-36.5); Mean Platelet Volume 9.5 fL (9.1-12.4); NRBC ABSOLUTE 0.02 K/mm3 (0.00-0.02); NRBC Auto 0.1 /100 WBC (0.0-0.2); Platelet Count 286 K/mm3 (150-400); RDW Standard Deviation 55.7 fL (35.1-46.3); Red Blood Cell Count 2.64 M/mm3 (4.30-5.90); White Blood Cell Count 13.56 K/mm3 (4.00-11.30)
[2024-09-25 08:10] LABS: Bun/Creatinine Ratio 43.1 (12.0-20.0); Creatinine, Blood 1.88 mg/dL (0.60-1.20); Mean Corpuscular Volume 101 fL (80-100)
[2024-09-25 08:29] VITALS: BP 140/76
[2024-09-25] MEDS ORDERED: Lactobacil 2-S.Thermo-Bifido 1 1 Cap PO SCH (09:00)
[2024-09-25] MEDS ORDERED: Heparin Sodium 5000 Units/ML 1ML MDV SC SCH (09:00)
[2024-09-25] MEDS ORDERED: PredniSONE 20 MG Tab PO SCH ×2 (09:00)
[2024-09-25] MEDS ORDERED: AmLODIPine Besylate 5 MG Tab PO SCH (09:00)
[2024-09-25] MEDS ORDERED: Aspirin 81 MG TabEC PO SCH (09:00)
[2024-09-25 09:10] LABS: BASOPHILS PERCENT MAN 0 % (0-2); EOSINOPHILS PERCENT MAN 0 % (0-6); LYMPHOCYTES ABSOLUTE MAN 0.67 K/mm3 (0.84-5.20); LYMPHOCYTES PERCENT MAN 5 % (21-46); METAMYELOCYTE ABSOLUTE MAN 0.27 K/mm3 (0.00-0.00); METAMYELOCYTE PERCENT MAN 2 % (0-0); MONOCYTES ABSOLUTE MAN 0.54 K/mm3 (0.16-1.47); MONOCYTES PERCENT MAN 4 % (4-13); NEUTROPHILS ABSOLUTE MAN 12.06 K/mm3 (1.96-9.15); SEG NEUTROPHILS PERCENT MAN 89 % (41-73); TOTAL CELLS COUNTED 100
[2024-09-25] MEDS ORDERED: Polyethylene Glycol 3350 17 gm PO PRN (11:35)
[2024-09-25] MEDS ORDERED: Acetaminophen 500 MG Tab PO PRN (11:40)
[2024-09-25] MEDS ORDERED: LevoFLOXacin 750 MG Tab PO SCH (12:00)
[2024-09-25 16:14] VITALS: BP 142/76
--- NOTE | 2024-09-25 19:08 | NUR ---
SHIFT SUMMARY PT A/O TO SELF ONLY AT START OF SHIFT WITH MUMBLED SPEECH. IMPULSIVE AND ATTEMPTING TO GET OOB FREQUENTLY. WAS REFUSING IV AND MEDS IN ER. PER REPORT FROM STAVE BLOCK ROLLER RN PATIENT WAS ON SOFT WRIST RESTRAINTS THAT WERE TAKEN OFF PRIOR TO START OF MY SHIFT. 1:1 SITTER DURING DAY SHIFT. PT WAS SLEEPING BUT AROUSABLE MOST OF THE MORNING. MENTATION STARTED TO CLEAR UP IN THE AFTERNOON AND WAS ANSWERING ALL ORIENTATION QUESTIONS CORRECTLY AND ABLE TO MAKE NEEDS KNOWN. TWO SONS AT BEDSIDE THIS AM. DR. BRIGHT GIVEN SONS NUMBER TO UPDATE ON PLAN OF CARE AND TREATMENT PER FAMILY'S REQUEST. NO IV ACCESS AT START OF SHIFT, WARNING ANALYST ATTEMPTED 3 TIMES BUT WAS UNSUCCESSFUL, CALLED DR. BRIGHT WHO DEEMED IV NOT NEEDED AT THIS TIME AND CHNAGED IV ANTIBIOTICS TO ORAL. HOME CPAP BROUGHT IN BY FAMILY. 2L NC THROUGHOUT SHIFT MAINTAINING SATS >93%
[2024-09-25 20:09] VITALS: BP 119/75
[2024-09-25] MEDS ORDERED: OLANZapine 5 MG Tab PO SCH (21:00)
[2024-09-25] MEDS ORDERED: Docusate Sodium/Senna 1 Tab PO SCH (21:00)
[2024-09-26 03:28] VITALS: BP 128/54
--- NOTE | 2024-09-26 04:53 | NUR ---
Pt A&O x3, unable to tell what date was. VS WNL, O2 @ @L/NC for sats in high 90's. tele NSR with PAC's in 90's. CPAP at night with O2 bleed in. Pt stands at BS to urinate with assist d/t unsteady/shaking and can't hold urinal and hold self up with walker. Pt awaiting PT staci, Lives with , but she is unable to assist Pt with cares. l/s with wheezes in rt lobes.
[2024-09-26 05:19] LABS: Hematocrit 22.7 % (37.0-53.0); Hemoglobin 7.2 g/dL (13.5-17.5); Mean Corpuscular HGB 30.9 pg (26.0-34.0); Mean Corpuscular HGB Conc 31.7 g/dL (31.5-36.5); Mean Corpuscular Volume 97 fL (80-100); Mean Platelet Volume 9.4 fL (9.1-12.4); NRBC ABSOLUTE 0.02 K/mm3 (0.00-0.02); NRBC Auto 0.1 /100 WBC (0.0-0.2); Platelet Count 252 K/mm3 (150-400); RDW Coefficient Variation 14.8 % (11.7-14.2); RDW Standard Deviation 51.8 fL (35.1-46.3); Red Blood Cell Count 2.33 M/mm3 (4.30-5.90); White Blood Cell Count 14.03 K/mm3 (4.00-11.30)
[2024-09-26 05:57] LABS: Anion Gap 8 mmol/L (3-11); Blood Urea Nitrogen 67 mg/dL (8-24); Bun/Creatinine Ratio 33.7 (12.0-20.0); CO2, Blood 34 mmol/L (21-32); Calcium, Blood 8.7 mg/dL (8.5-10.1); Chloride, Blood 102 mmol/L (98-108); Creatinine, Blood 1.99 mg/dL (0.60-1.20); Glomerular Filtration Rate 34 (60-); Glucose, Blood 168 mg/dL (70-99); Magnesium, Blood 2.1 mg/dL (1.6-2.4); Phosphorus, Blood 4.2 mg/dL (2.5-4.9); Potassium, Blood 4.4 mmol/L (3.5-5.5); Sodium, Blood 140 mmol/L (136-145)
[2024-09-26 07:45] VITALS: BP 134/66
[2024-09-26] MEDS ORDERED: PredniSONE 20 MG Tab PO SCH (09:00)
[2024-09-26] MEDS ORDERED: Cholecalciferol 1000 Unit Tablet (=25MCG) PO SCH (09:00)
[2024-09-26 15:36] VITALS: BP 138/76
--- NOTE | 2024-09-26 18:08 | NUR ---
SHIFT SUMMARY PATIENT UP TO CHAIR T/O MOST OF THE DAY. A/OX4. DR. VALENTE WAS CONSULTED TODAY. NO EVENTS ON TELE. ABLE TO MAKE NEEDS KNOWN. CALL LIGHT IN REACH.
[2024-09-26 19:53] VITALS: BP 147/82
[2024-09-26] MEDS ORDERED: Ipratropium/Albuterol SulF 2.5-0.5MG/3 ML Amp INH SCH (21:44)
[2024-09-27 04:37] VITALS: BP 138/71
--- NOTE | 2024-09-27 05:42 | NUR ---
SHIFT SUMMARY NOC PT A/O X 4. PLEASANT AND COOPERTIVE WITH CARE. VSS. NO ACUTE EVENTS TO REPORT. PT HAD CONSULT WITH DR VALENTE CONSULTED YESTERDAY FOR PLAN GOING FORWARD FOR RADIATION PNEUMONITIS. PT TELE D/C. ON 2L/NC SPO2 >92%. PT AMBULATING TO BATHROOM 1PA FWW W/O ISSUE. PT CURRENTLY RESTING WTIH CPAP ON BED IN LOWEST POSITION, AND CALL LIGHT WITHIN REACH.
[2024-09-27 07:57] VITALS: BP 134/68
[2024-09-27] MEDS ORDERED: PredniSONE 20 MG Tab PO SCH (09:00)
[2024-09-27 16:39] VITALS: BP 144/118
--- NOTE | 2024-09-27 17:24 | NUR ---
SHIFT SUMMARY: P[place] A/O X 4, PATIENT SBA WITH FWW AND ABLE TO AMBULATE TO BATHROOM WITH NO ISSUES. PATIENT CURRENTLY ON 2L OXYGEN VIA N/C WHICH IS PATIENT BASELINE. PATIENT ABLE TO MAKE NEEDS KNOWN AND USES CALL LIGHT FOR ASSITANCE. PATIENT WORKING WITH RESPIRATORY THERAPY WITH ALBUTEROL TREATMENTS. PATIENT CALL LIGHT WITHIN REACH AND ADVISED TO CALL FOR ASSITANCE.
[2024-09-27 19:32] VITALS: BP 141/75
--- NOTE | 2024-09-28 04:52 | NUR ---
SHIFT SUMMARY 79 YR M ADMITTED ON 09/24/24. FULL CODE. NO ACUTE CHANGES THIS SHIFT. PT WAS UP IN CHAIR FOR FIRST COUPLE OF HOURS THIS SHIFT. HE IS VERY PLEASANT AND COOPERATIVE WITH CARE. HE CALLS APPROPRIATELY FOR ASSISTANCE TO BATHROOM AND FOR ASSISTANCE GETTING BACK INTO BED. ONCE IN BED, HE SLEPT FOR THE REMAINDER OF THIS SHIFT. WILL CONTINUE TO MONITOR. BED IN LOW POSITION AND CALL LIGHT IN REACH.
[2024-09-28 04:56] VITALS: BP 124/75
[2024-09-28 07:14] VITALS: BP 159/71
[2024-09-28] MEDS ORDERED: PRED20 PO (11:10)
--- NOTE | 2024-09-28 15:14 | NUR ---
DISCHARGE SUMMARY: PT DISCHARGED HOME TODAY WITH HOME HEALTH SERVICES. PT DISCHARGED AFTER WALKER WAS DELIVERED. PT BROUGHT O2 POC FOR RIDE HOME. PT EDUCATED ON DISCHARGE MEDICATIONS AND INSTRUCTIONS. PT V/U. ASSISTED PT WITH PACKING UP BELONGINGS. CPAP, HEARING AIDS SENT WITH PT. PT ESCORTED TO POV VIA WHEELCHAIR.
== END 2024-09-28 14:32 | disposition home health service (06) | DRG 871 ==
LOC: ER 14:00 → MEDS 14:01 → ERHOLD 14:01 → MEDS 14:02 → UNDODEPER 09-25 22:52 → MEDS 09-26 15:45
PROVIDERS: Emergency Medicine; Internal Medicine; Student in an Organized Health Care Education/Training Program; ADMIT Student in an Organized Health Care Education/Training Program
DX: A41.9 Sepsis, unspecified organism (principal); G92.8 Other toxic encephalopathy; J18.9 Pneumonia, unspecified organism; J96.22 Acute and chronic respiratory failure with hypercapnia; J96.21 Acute and chronic respiratory failure with hypoxia; N18.4 Chronic kidney disease, stage 4 (severe); J44.1 Chronic obstructive pulmonary disease with (acute) exacerbation; J44.0 Chronic obstructive pulmonary disease with (acute) lower respiratory infection; I50.32 Chronic diastolic (congestive) heart failure; I13.0 Hypertensive heart and chronic kidney disease with heart failure and stage 1 through stage 4 chronic kidney disease, or unspecified chronic kidney disease; C34.12 Malignant neoplasm of upper lobe, left bronchus or lung; E78.5 Hyperlipidemia, unspecified; D63.1 Anemia in chronic kidney disease; R73.9 Hyperglycemia, unspecified; E87.6 Hypokalemia; R41.89 Other symptoms and signs involving cognitive functions and awareness; D63.0 Anemia in neoplastic disease; T38.0X5A Adverse effect of glucocorticoids and synthetic analogues, initial encounter; Z90.49 Acquired absence of other specified parts of digestive tract; Z98.890 Other specified postprocedural states; Z87.891 Personal history of nicotine dependence; Z99.81 Dependence on supplemental oxygen; Z79.2 Long term (current) use of antibiotics; Z79.52 Long term (current) use of systemic steroids; Z79.51 Long term (current) use of inhaled steroids; Z79.82 Long term (current) use of aspirin; Z79.899 Other long term (current) drug therapy; Z91.148 Patient's other noncompliance with medication regimen for other reason; Z92.21 Personal history of antineoplastic chemotherapy; Z92.3 Personal history of irradiation
CPT/HCPCS: 36415; 70450; 71045; 80048; 80053; 80069; 82803; 83735; 84145; 85025; 85027; 93005; 93010; 94640; 94760; 94761; 94762; 96372; 97116; 97161; 97165; 97530; 97535; 99285-25; A9270; G0378; J1644; J7512

== ENCOUNTER 2024-10-15 16:37 | Emergency (ER) | payer OTHER ==
[~2024-10-15] VITALS: Ht 177.8 cm; Wt 103.9 kg
[~2024-10-15 16:37] MED LIST changes: +Prednisone20 MG PO
[2024-10-15 17:15] LABS: BASOPHILS ABSOLUTE AUTO 0.02 K/mm3 (0.00-0.23); BASOPHILS PERCENT AUTO 0 % (0-2); EOSINOPHILS ABSOLUTE AUTO 0.01 K/mm3 (0.00-0.68); EOSINOPHILS PERCENT AUTO 0 % (0-6); Hematocrit 22.5 % (37.0-53.0); Hemoglobin 7.3 g/dL (13.5-17.5); IMMATURE GRAN PERCENT AUTO 3 % (0-1); LYMPHOCYTES PERCENT AUTO 1 % (21-46); MONOCYTES ABSOLUTE AUTO 0.28 K/mm3 (0.16-1.47); MONOCYTES PERCENT AUTO 4 % (4-13); Mean Corpuscular HGB 31.3 pg (26.0-34.0); Mean Corpuscular HGB Conc 32.4 g/dL (31.5-36.5); Mean Corpuscular Volume 97 fL (80-100); Mean Platelet Volume 9.4 fL (9.1-12.4); NEUTROPHILS ABSOLUTE AUTO 7.42 K/mm3 (1.96-9.15); NEUTROPHILS PERCENT AUTO 93 % (41-73); Platelet Count 199 K/mm3 (150-400); RDW Coefficient Variation 15.9 % (11.7-14.2); RDW Standard Deviation 55.6 fL (35.1-46.3); Red Blood Cell Count 2.33 M/mm3 (4.30-5.90); White Blood Cell Count 8.03 K/mm3 (4.00-11.30)
[2024-10-15 17:37] LABS: Albumin, Blood 2.1 g/dL (3.4-5.0); Albumin/Globulin Ratio 0.4 (0.8-1.8); Bilirubin, Total 0.4 mg/dL (0.1-1.0); Bun/Creatinine Ratio 40.4 (12.0-20.0); Calcium, Blood 8.3 mg/dL (8.5-10.1); Creatinine, Blood 1.66 mg/dL (0.60-1.20); Globulin, Blood 4.8 g/dL (2.2-4.0); Potassium, Blood 4.4 mmol/L (3.5-5.5); Total Protein, Blood 6.9 g/dL (6.4-8.2)
[2024-10-15] MEDS ORDERED: Lasix20 MG PO (21:13)
[2024-10-15] MEDS ORDERED: Furosemide 20 MG Tab PO ONE (21:15)
[2024-10-15 21:48] VITALS: BP 120/78
== END 2024-10-15 23:45 | disposition home or self-care (01) ==
LOC: ER 16:37
PROVIDERS: Emergency Medicine
DX: R60.0 Localized edema (principal); C34.92 Malignant neoplasm of unspecified part of left bronchus or lung; J44.9 Chronic obstructive pulmonary disease, unspecified; I12.9 Hypertensive chronic kidney disease with stage 1 through stage 4 chronic kidney disease, or unspecified chronic kidney disease; N18.4 Chronic kidney disease, stage 4 (severe); E78.5 Hyperlipidemia, unspecified; Z87.891 Personal history of nicotine dependence; Z79.82 Long term (current) use of aspirin; Z79.52 Long term (current) use of systemic steroids; Z79.899 Other long term (current) drug therapy
CPT/HCPCS: 71045; 80053; 83880; 84484; 85025; 93005; 93010; 93970; 99285-25; A9270

== ENCOUNTER 2024-11-04 09:16 | Inpatient (IN) | payer OTHER ==
[~2024-11-04] VITALS: Ht 175.3 cm; Wt 99.3 kg
[~2024-11-04 09:16] MED LIST changes: +Lasix20 MG PO
[2024-11-04] MEDS ORDERED: Albuterol 2.5 MG/3 ML VIAL INH SCH (09:45)
[2024-11-04] MEDS ORDERED: MethylPREDNISolone Sod Succ 125 MG Vial IV ONE (09:45)
[2024-11-04 09:59] LABS: Base Excess Venous 8.7 mmol/L; Bicarbonate Venous 31.5 mmol/L (24.0-30.0); PCO2 Venous 61.1 mmHg (38-42); pH Blood Venous 7.36 (7.34-7.37)
[2024-11-04] MEDS ORDERED: METO25 PO ×2 (10:04→21:10)
[2024-11-04 10:05] LABS: BASOPHILS ABSOLUTE AUTO 0.04 K/mm3 (0.00-0.23); BASOPHILS PERCENT AUTO 0 % (0-2); EOSINOPHILS PERCENT AUTO 0 % (0-6); Hematocrit 22.8 % (37.0-53.0); Hemoglobin 7.5 g/dL (13.5-17.5); IMMATURE GRAN ABSOLUTE AUTO 0.26 K/mm3 (0.00-0.10); IMMATURE GRAN PERCENT AUTO 1 % (0-1); LYMPHOCYTES ABSOLUTE AUTO 0.17 K/mm3 (0.84-5.20); LYMPHOCYTES PERCENT AUTO 1 % (21-46); MONOCYTES ABSOLUTE AUTO 0.92 K/mm3 (0.16-1.47); MONOCYTES PERCENT AUTO 5 % (4-13); Mean Corpuscular HGB 30.4 pg (26.0-34.0); Mean Corpuscular HGB Conc 32.9 g/dL (31.5-36.5); Mean Corpuscular Volume 92 fL (80-100); Mean Platelet Volume 9.9 fL (9.1-12.4); NEUTROPHILS ABSOLUTE AUTO 17.27 K/mm3 (1.96-9.15); NEUTROPHILS PERCENT AUTO 93 % (41-73); Platelet Count 237 K/mm3 (150-400); RDW Coefficient Variation 15.1 % (11.7-14.2); RDW Standard Deviation 50.9 fL (35.1-46.3); Red Blood Cell Count 2.47 M/mm3 (4.30-5.90); White Blood Cell Count 18.66 K/mm3 (4.00-11.30)
[2024-11-04] MEDS ORDERED: THERA-D2000 UNIT PO (10:07)
[2024-11-04] MEDS ORDERED: ALBU2.5V5 INH (10:08)
[2024-11-04] MEDS ORDERED: Cefepime HCl 1,000 MG in NS 100 ML IV ONE (10:10)
[2024-11-04] MEDS ORDERED: LevoFLOXacin 750 MG/D5W 150ML 150 ML IV ONE (10:10)
[2024-11-04 10:19] LABS: Bun/Creatinine Ratio 26.6 (12.0-20.0); Calcium, Blood 8.2 mg/dL (8.5-10.1); Creatinine, Blood 2.22 mg/dL (0.60-1.20); Magnesium, Blood 1.6 mg/dL (1.6-2.4); Potassium, Blood 3.6 mmol/L (3.5-5.5)
[2024-11-04] MEDS ORDERED: Vancomycin HCL 2,000 MG in NS 500 ML IV ONE (10:20)
[2024-11-04 11:22] LABS: Influenza A, PCR NEGATIVE (NEGATIVE); Influenza B, PCR NEGATIVE (NEGATIVE); Resp Syncytial Virus, PCR NEGATIVE (NEGATIVE); SARS-Cov-2 (COVID-19) PCR, MMC NEGATIVE (NEGATIVE)
[2024-11-04] MEDS ORDERED: Ondansetron 4 MG TAB PO PRN (12:35)
[2024-11-04] MEDS ORDERED: TraZODone HCl 50 MG Tab PO PRN (12:35)
[2024-11-04] MEDS ORDERED: Magnesium Hydroxide Conc 10 ML UDC PO PRN (12:35)
[2024-11-04] MEDS ORDERED: FLU VACC TS2024-25(6MOS UP)/PF 45 MCG/0.5 ML SYRINGE IM ONE (12:35)
[2024-11-04] MEDS ORDERED: Bisacodyl 10 MG Supp PR PRN (12:40)
[2024-11-04] MEDS ORDERED: Prochlorperazine Edisylate 10 mg Vial IV PRN (12:40)
[2024-11-04] MEDS ORDERED: Ipratropium/Albuterol SulF 2.5-0.5MG/3 ML Amp INH SCH (12:45)
[2024-11-04] MEDS ORDERED: Tiotropium Bromide 2.5 MCG/ACT MIST INHAL (10 ACT/4 GM) INH SCH (12:45)
[2024-11-04] MEDS ORDERED: Midodrine 5 MG Tab PO ONE (13:00)
[2024-11-04] MEDS ORDERED: Mometasone/Formoterol MDI 200/5 mcg 13 GM INH SCH (13:05)
[2024-11-04] MEDS ORDERED: Piperacillin/Tazobactam Sod 3.375 GM in NS 100 ML IV SCH (16:00)
[2024-11-04] MEDS ORDERED: MethylPREDNISolone Sod Succ 125 MG Vial IV SCH (16:00)
[2024-11-04 17:00] VITALS: BP 112/86
[2024-11-04] MEDS ORDERED: Insulin Human Lispro 100 Units/ML 3ML Syringe SC ONE (17:55)
[2024-11-04 20:37] LABS: Glucose, Blood 533 mg/dL (70-99)
[2024-11-04 20:52] VITALS: BP 103/58
[2024-11-04] MEDS ORDERED: Lactobacil 2-S.Thermo-Bifido 1 1 Cap PO SCH (21:00)
[2024-11-04] MEDS ORDERED: Docusate Sodium 100 MG Cap PO SCH (21:00)
[2024-11-04] MEDS ORDERED: Famotidine 20 MG Tab PO SCH (21:00)
[2024-11-04] MEDS ORDERED: Insulin Human Lispro 100 Units/ML 3ML Syringe SC SCH (21:00)
[2024-11-04] MEDS ORDERED: ALBU90OI INH (21:16)
[2024-11-04] MEDS ORDERED: Insulin Glargine-Yfgn 100 Unit/mL 3 ML SYR SC ONE (22:00)
[2024-11-05 00:05] VITALS: BP 107/67
[2024-11-05 03:10] VITALS: BP 126/63
[2024-11-05 07:53] VITALS: BP 129/68
[2024-11-05] MEDS ORDERED: Insulin NPH 100 Unit / ML 10ML Vial SC SCH ×3 (08:18→16:46)
[2024-11-05] MEDS ORDERED: Tamsulosin HCl 0.4 MG Cap PO SCH (09:00)
[2024-11-05] MEDS ORDERED: Enoxaparin 40 MG/0.4 ML SYR SC SCH (09:00)
[2024-11-05] MEDS ORDERED: Furosemide 10 MG/ML 4ML Vial IV SCH (09:00)
[2024-11-05 12:02] VITALS: BP 112/61
[2024-11-05 16:13] VITALS: BP 109/65
[2024-11-05] MEDS ORDERED: Insulin NPH 10 Unit/0.1ML (Single Dose) SC SCH (16:30)
[2024-11-05 20:22] VITALS: BP 137/60
[2024-11-05] MEDS ORDERED: MethylPREDNISolone Sod Succ 125 MG Vial IV SCH (21:00)
[2024-11-06] VITALS (11 sets, daily range): BP systolic 96–142; BP diastolic 50–84
[2024-11-06 03:51] LABS: Hemoglobin 6.8 g/dL (13.5-17.5); Mean Corpuscular HGB 30.4 pg (26.0-34.0); Mean Corpuscular HGB Conc 32.4 g/dL (31.5-36.5); Mean Corpuscular Volume 94 fL (80-100); Mean Platelet Volume 9.8 fL (9.1-12.4); Platelet Count 220 K/mm3 (150-400); RDW Coefficient Variation 15.2 % (11.7-14.2); Red Blood Cell Count 2.24 M/mm3 (4.30-5.90); White Blood Cell Count 15.79 K/mm3 (4.00-11.30)
[2024-11-06 04:08] LABS: Calcium, Blood 8.7 mg/dL (8.5-10.1); Creatinine, Blood 2.21 mg/dL (0.60-1.20); Magnesium, Blood 1.7 mg/dL (1.6-2.4); Phosphorus, Blood 4.8 mg/dL (2.5-4.9); Potassium, Blood 3.6 mmol/L (3.5-5.5)
[2024-11-06] MEDS ORDERED: Furosemide 10 MG/ML 4ML Vial IV SCH (09:00)
[2024-11-06] MEDS ORDERED: NS 250 ML IV PRN (10:40)
[2024-11-06 15:25] LABS: Hematocrit 25.6 % (37.0-53.0); Hemoglobin 8.4 g/dL (13.5-17.5)
[2024-11-06] MEDS ORDERED: Magnesium Sulf 2 GM/Water 50ML 50 ML IV STA (19:08)
[2024-11-06] MEDS ORDERED: Potassium Chloride 20 MEQ TabCR PO ONE (20:00)
[2024-11-06] MEDS ORDERED: Metoprolol Tartrate 25 MG Tab PO SCH (20:00)
[2024-11-07] VITALS (7 sets, daily range): BP systolic 79–134; BP diastolic 45–74
[2024-11-07 04:42] LABS: BASOPHILS ABSOLUTE AUTO 0.08 K/mm3 (0.00-0.23); BASOPHILS PERCENT AUTO 1 % (0-2); EOSINOPHILS ABSOLUTE AUTO 0.03 K/mm3 (0.00-0.68); EOSINOPHILS PERCENT AUTO 0 % (0-6); Hematocrit 25.5 % (37.0-53.0); Hemoglobin 8.2 g/dL (13.5-17.5); IMMATURE GRAN ABSOLUTE AUTO 0.19 K/mm3 (0.00-0.10); IMMATURE GRAN PERCENT AUTO 1 % (0-1); LYMPHOCYTES ABSOLUTE AUTO 0.17 K/mm3 (0.84-5.20); LYMPHOCYTES PERCENT AUTO 1 % (21-46); MONOCYTES ABSOLUTE AUTO 0.56 K/mm3 (0.16-1.47); MONOCYTES PERCENT AUTO 3 % (4-13); Mean Corpuscular HGB 29.9 pg (26.0-34.0); Mean Corpuscular HGB Conc 32.2 g/dL (31.5-36.5); Mean Corpuscular Volume 93 fL (80-100); Mean Platelet Volume 10.1 fL (9.1-12.4); NEUTROPHILS ABSOLUTE AUTO 15.44 K/mm3 (1.96-9.15); NEUTROPHILS PERCENT AUTO 94 % (41-73); Platelet Count 213 K/mm3 (150-400); RDW Coefficient Variation 15.4 % (11.7-14.2); RDW Standard Deviation 52.5 fL (35.1-46.3); Red Blood Cell Count 2.74 M/mm3 (4.30-5.90); White Blood Cell Count 16.47 K/mm3 (4.00-11.30)
[2024-11-07 05:03] LABS: Bun/Creatinine Ratio 33.3 (12.0-20.0); Creatinine, Blood 2.07 mg/dL (0.60-1.20); Phosphorus, Blood 4.9 mg/dL (2.5-4.9); Potassium, Blood 3.7 mmol/L (3.5-5.5)
[2024-11-07] MEDS ORDERED: Insulin NPH 100 Unit / ML 10ML Vial SC SCH (07:42)
[2024-11-07] MEDS ORDERED: Potassium Chloride 20 MEQ/15 ML UDC PO SCH (09:00)
[2024-11-08 00:54] VITALS: BP 130/79
[2024-11-08 04:57] VITALS: BP 128/65
[2024-11-08 07:48] VITALS: BP 129/70
[2024-11-08 08:35] LABS: Hematocrit 27.7 % (37.0-53.0); Hemoglobin 9.1 g/dL (13.5-17.5); Mean Corpuscular HGB 30.2 pg (26.0-34.0); Mean Corpuscular HGB Conc 32.9 g/dL (31.5-36.5); Mean Corpuscular Volume 92 fL (80-100); Mean Platelet Volume 9.8 fL (9.1-12.4); NRBC ABSOLUTE 0.02 K/mm3 (0.00-0.02); NRBC Auto 0.1 /100 WBC (0.0-0.2); Platelet Count 195 K/mm3 (150-400); RDW Coefficient Variation 15.1 % (11.7-14.2); RDW Standard Deviation 50.5 fL (35.1-46.3); Red Blood Cell Count 3.01 M/mm3 (4.30-5.90); White Blood Cell Count 16.65 K/mm3 (4.00-11.30)
[2024-11-08 09:48] LABS: Bun/Creatinine Ratio 38.2 (12.0-20.0); Calcium, Blood 9.3 mg/dL (8.5-10.1); Creatinine, Blood 1.91 mg/dL (0.60-1.20); Magnesium, Blood 1.8 mg/dL (1.6-2.4); Phosphorus, Blood 4.3 mg/dL (2.5-4.9); Potassium, Blood 3.9 mmol/L (3.5-5.5)
[2024-11-08 12:56] VITALS: BP 116/69
[2024-11-08 16:51] VITALS: BP 129/73
[2024-11-08 20:22] VITALS: BP 128/72
[2024-11-09 00:39] VITALS: BP 123/70
[2024-11-09 03:35] VITALS: BP 124/70
[2024-11-09 07:32] VITALS: BP 135/74
[2024-11-09 16:36] VITALS: BP 114/76
[2024-11-09 19:42] VITALS: BP 124/72
[2024-11-09] MEDS ORDERED: MethylPREDNISolone Sod Succ 40 MG VIAL IV SCH (21:00)
[2024-11-10 00:22] VITALS: BP 119/83
[2024-11-10 04:37] VITALS: BP 130/81
[2024-11-10 05:59] LABS: Hematocrit 28.8 % (37.0-53.0); Hemoglobin 9.3 g/dL (13.5-17.5); Mean Corpuscular HGB Conc 32.3 g/dL (31.5-36.5); Mean Corpuscular Volume 93 fL (80-100); Mean Platelet Volume 9.9 fL (9.1-12.4); Platelet Count 192 K/mm3 (150-400); RDW Coefficient Variation 14.2 % (11.7-14.2); White Blood Cell Count 14.62 K/mm3 (4.00-11.30)
[2024-11-10 06:20] LABS: Albumin, Blood 1.9 g/dL (3.4-5.0); Anion Gap 11 mmol/L (3-11); Blood Urea Nitrogen 67 mg/dL (8-24); Bun/Creatinine Ratio 35.1 (12.0-20.0); CO2, Blood 43 mmol/L (21-32); Calcium, Blood 9.1 mg/dL (8.5-10.1); Chloride, Blood 84 mmol/L (98-108); Creatinine, Blood 1.91 mg/dL (0.60-1.20); Glomerular Filtration Rate 35 (60-); Glucose, Blood 121 mg/dL (70-99); Phosphorus, Blood 4.5 mg/dL (2.5-4.9); Potassium, Blood 3.7 mmol/L (3.5-5.5); Sodium, Blood 134 mmol/L (136-145)
[2024-11-10 07:36] VITALS: BP 142/82
[2024-11-10 13:43] VITALS: BP 109/69
[2024-11-10 16:54] VITALS: BP 125/68
[2024-11-10 20:34] VITALS: BP 112/67
[2024-11-11 00:45] VITALS: BP 127/80
[2024-11-11 04:37] VITALS: BP 128/78
[2024-11-11 06:10] LABS: Anion Gap 11 mmol/L (3-11); Blood Urea Nitrogen 69 mg/dL (8-24); CHOL/HDL RATIO 2.9; CO2, Blood 43 mmol/L (21-32); Calcium, Blood 9.6 mg/dL (8.5-10.1); Chloride, Blood 85 mmol/L (98-108); Cholesterol 230 mg/dL (50-200); Creatinine, Blood 2.03 mg/dL (0.60-1.20); Glomerular Filtration Rate 33 (60-); Glucose, Blood 159 mg/dL (70-99); HDL Cholesterol 79 mg/dL (>39); LDL/HDL RATIO 1.6; Low Density Lipoprotein Chol 128 mg/dL (0-110); Potassium, Blood 3.9 mmol/L (3.5-5.5); Sodium, Blood 135 mmol/L (136-145); Triglycerides 116 mg/dL (30-160); Very Low Density Lipoprot Chol 23 mg/dL (6-32)
[2024-11-11 07:20] VITALS: BP 123/75
[2024-11-11 09:13] VITALS: BP 147/73
[2024-11-11 11:11] VITALS: BP 126/78
[2024-11-11] MEDS ORDERED: DOCU100 PO (14:37)
[2024-11-11] MEDS ORDERED: BASAGLAR K100 UNIT/1 SC (14:42)
[2024-11-11] MEDS ORDERED: POTA10T PO (14:44)
[2024-11-11] MEDS ORDERED: HUMALOG KW100 UNIT/1 SC (14:44)
[2024-11-11] MEDS ORDERED: FURO20 PO (14:47)
[2024-11-11 15:14] VITALS: BP 124/67
== END 2024-11-11 16:33 | disposition home health service (06) | DRG 205 ==
LOC: ER 09:16 → MEDS 12:29 → PCU 12:29 → ERHOLD 12:29 → PCU 17:26 → MEDS 11-07 20:25 → ENPENDDIS 11-11 13:13 → MEDS 11-11 16:33
PROVIDERS: Emergency Medicine; Internal Medicine; ADMIT Hospitalist
PROC: 30233N1 Transfusion of Nonautologous Red Blood Cells into Peripheral Vein, Percutaneous Approach (ICD-10-PCS; principal; 2024-11-04)
PROC: 5A09357 Assistance with Respiratory Ventilation, Less than 24 Consecutive Hours, Continuous Positive Airway Pressure (ICD-10-PCS; 2024-11-04)
DX: J70.0 Acute pulmonary manifestations due to radiation (principal); I50.31 Acute diastolic (congestive) heart failure; J96.21 Acute and chronic respiratory failure with hypoxia; I13.0 Hypertensive heart and chronic kidney disease with heart failure and stage 1 through stage 4 chronic kidney disease, or unspecified chronic kidney disease; N18.4 Chronic kidney disease, stage 4 (severe); J44.1 Chronic obstructive pulmonary disease with (acute) exacerbation; E87.1 Hypo-osmolality and hyponatremia; C34.12 Malignant neoplasm of upper lobe, left bronchus or lung; D84.9 Immunodeficiency, unspecified; J18.9 Pneumonia, unspecified organism; D64.81 Anemia due to antineoplastic chemotherapy; D63.1 Anemia in chronic kidney disease; I27.20 Pulmonary hypertension, unspecified; E11.22 Type 2 diabetes mellitus with diabetic chronic kidney disease; N40.0 Benign prostatic hyperplasia without lower urinary tract symptoms; Z92.21 Personal history of antineoplastic chemotherapy; Z92.3 Personal history of irradiation; Z79.82 Long term (current) use of aspirin; Z79.899 Other long term (current) drug therapy; Z90.49 Acquired absence of other specified parts of digestive tract; Z98.890 Other specified postprocedural states; Z87.891 Personal history of nicotine dependence
CPT/HCPCS: 0241U; 36415; 36430; 71045; 71260; 80048; 80061; 80069; 82803; 82947; 83036; 83605; 83735; 83880; 84100; 84484; 85014; 85018; 85025; 85027; 85379; 86850; 86900; 86901; 86923; 87040; 87070; 87205; 93005; 93010; 93308; 93321; 94640; 94644; 94660; 94664; 94760; 94761; 94762; 96365; 96367; 96375; 97110; 97116; 97162; 97165; 97530; 97535; 99285-25; A9270; J0692; J1650; J1815; J1940; J1956; J2543; J2919; J3370; J3475; J7040; J7050; P9016; Q9967

== ENCOUNTER 2024-11-18 12:30 | Inpatient (IN) | payer OTHER ==
[~2024-11-18] VITALS: Ht 170.2 cm; Wt 100.7 kg
[~2024-11-18 12:30] MED LIST changes: +ALBU2.5V5 INH; +BASAGLAR K100 UNIT/1 SC; +FURO20 PO; +HUMALOG KW100 UNIT/1 SC; +METO25 PO; +POTA10T PO; +THERA-D2000 UNIT PO
[2024-11-18 14:27] LABS: CORONAVIRUS COVID-19 AG Negative (NEGATIVE); INFLUENZA A AG Negative (NEGATIVE); INFLUENZA B AG Negative (NEGATIVE)
[2024-11-18 15:24] LABS: BASOPHILS ABSOLUTE AUTO 0.05 K/mm3 (0.00-0.23); BASOPHILS PERCENT AUTO 0 % (0-2); EOSINOPHILS PERCENT AUTO 0 % (0-6); Hematocrit 27.1 % (37.0-53.0); Hemoglobin 8.9 g/dL (13.5-17.5); IMMATURE GRAN ABSOLUTE AUTO 0.46 K/mm3 (0.00-0.10); IMMATURE GRAN PERCENT AUTO 2 % (0-1); LYMPHOCYTES PERCENT AUTO 0 % (21-46); MONOCYTES PERCENT AUTO 3 % (4-13); Mean Corpuscular HGB 30.5 pg (26.0-34.0); Mean Corpuscular HGB Conc 32.8 g/dL (31.5-36.5); Mean Corpuscular Volume 93 fL (80-100); Mean Platelet Volume 9.7 fL (9.1-12.4); NEUTROPHILS ABSOLUTE AUTO 23.06 K/mm3 (1.96-9.15); NEUTROPHILS PERCENT AUTO 95 % (41-73); Platelet Count 264 K/mm3 (150-400); RDW Coefficient Variation 14.6 % (11.7-14.2); Red Blood Cell Count 2.92 M/mm3 (4.30-5.90); White Blood Cell Count 24.27 K/mm3 (4.00-11.30)
[2024-11-18] MEDS ORDERED: Cefepime HCl 2,000 MG in NS 100 ML IV ONE (15:30)
[2024-11-18] MEDS ORDERED: Vancomycin HCL 2,000 MG in NS 500 ML IV ONE (15:40)
[2024-11-18 15:46] LABS: Albumin/Globulin Ratio 0.4 (0.8-1.8); Bilirubin, Total 0.3 mg/dL (0.1-1.0); Bun/Creatinine Ratio 46.3 (12.0-20.0); Calcium, Blood 8.7 mg/dL (8.5-10.1); Creatinine, Blood 2.01 mg/dL (0.60-1.20); Globulin, Blood 5.2 g/dL (2.2-4.0); Potassium, Blood 4.2 mmol/L (3.5-5.5); Total Protein, Blood 7.2 g/dL (6.4-8.2)
[2024-11-18] MEDS ORDERED: Ipratropium/Albuterol SulF 2.5-0.5MG/3 ML Amp INH SCH (16:45)
[2024-11-18] MEDS ORDERED: Zolpidem Tartrate 10 MG Tab PO PRN (16:50)
[2024-11-18] MEDS ORDERED: ALPRAZolam 0.25 MG Tab PO PRN (16:50)
[2024-11-18] MEDS ORDERED: Acetaminophen 325 MG TABLET PO PRN (16:50)
[2024-11-18] MEDS ORDERED: Prochlorperazine Edisylate 10 mg Vial IV PRN (16:55)
[2024-11-18] MEDS ORDERED: FLU VACC TS2024-25(6MOS UP)/PF 45 MCG/0.5 ML SYRINGE IM SCH (16:55)
[2024-11-18] MEDS ORDERED: Ipratropium/Albuterol SulF 2.5-0.5MG/3 ML Amp INH ONE (17:35)
[2024-11-18] MEDS ORDERED: Metoprolol Tartrate 1 MG/ML 5 ML VIAL IV PRN (20:20)
[2024-11-18] MEDS ORDERED: CefTRIAXone Sodium 2,000 MG in NS 100 ML IV SCH (21:00)
[2024-11-18] MEDS ORDERED: Sennosides 8.6 MG Tab PO SCH (21:00)
[2024-11-18] MEDS ORDERED: Insulin Glargine-Yfgn 100 Unit/mL 3 ML SYR SC SCH (21:00)
[2024-11-19] VITALS (8 sets, daily range): BP systolic 102–148; BP diastolic 65–83
[2024-11-19 01:38] LABS: Base Excess Venous 8.7 mmol/L; Bicarbonate Venous 30.9 mmol/L (24.0-30.0); PCO2 Venous 53.5 mmHg (38-42)
[2024-11-19 01:56] LABS: Bun/Creatinine Ratio 45.2 (12.0-20.0); Calcium, Blood 8.5 mg/dL (8.5-10.1); Creatinine, Blood 1.99 mg/dL (0.60-1.20); Potassium, Blood 4.4 mmol/L (3.5-5.5)
[2024-11-19 01:57] LABS: BASOPHILS ABSOLUTE AUTO 0.03 K/mm3 (0.00-0.23); BASOPHILS PERCENT AUTO 0 % (0-2); EOSINOPHILS PERCENT AUTO 0 % (0-6); Hematocrit 26.9 % (37.0-53.0); Hemoglobin 8.8 g/dL (13.5-17.5); IMMATURE GRAN ABSOLUTE AUTO 0.47 K/mm3 (0.00-0.10); IMMATURE GRAN PERCENT AUTO 2 % (0-1); LYMPHOCYTES ABSOLUTE AUTO 0.19 K/mm3 (0.84-5.20); LYMPHOCYTES PERCENT AUTO 1 % (21-46); MONOCYTES ABSOLUTE AUTO 0.92 K/mm3 (0.16-1.47); MONOCYTES PERCENT AUTO 5 % (4-13); Mean Corpuscular HGB 30.4 pg (26.0-34.0); Mean Corpuscular HGB Conc 32.7 g/dL (31.5-36.5); Mean Corpuscular Volume 93 fL (80-100); Mean Platelet Volume 9.8 fL (9.1-12.4); NEUTROPHILS ABSOLUTE AUTO 18.34 K/mm3 (1.96-9.15); NEUTROPHILS PERCENT AUTO 92 % (41-73); Platelet Count 258 K/mm3 (150-400); RDW Coefficient Variation 14.8 % (11.7-14.2); RDW Standard Deviation 50.5 fL (35.1-46.3); Red Blood Cell Count 2.89 M/mm3 (4.30-5.90); White Blood Cell Count 19.95 K/mm3 (4.00-11.30)
--- NOTE | 2024-11-19 07:28 | NUR ---
SHIFT SUMMARY: PT ARRIVES TO PCU 14 FROM ER AROUND 0130 VIA GURNEY. TRANSFERRED PT TO HOSPITAL BED USING SLIDE SHEET. PT IS A&OX4, VERY [place], HAS BILAT HEARING AIDES AT BEDSIDE. PREFERS TO BE CALLED "RUSSELL", HE IS PLEASANT AND COOPERATIVE WITH CARE. VSS ON 5L NC SATS >95%, 5L NC CONTINUOUS IS HIS BASELINE OXYGEN USE. DECREASED HIS OXYGEN LATER ON TO 3L NC, O2 SATS >92%, PT REMAINS ON 3L NC. HR AFIB/AFLUTTER 90'S-100'S. DENIES PAIN. NOOB THIS SHIFT, STATES HE USES A FWW AT BASELINE D/T DYSPNEA. USING URINAL INDEPENDENTLY IN BED, VOIDING ADEQUATE AMOUNTS OF CLEAR, YELLOW URINE. NO BM THIS SHIFT. TOLERATING A CONS CARB DIET. BED IN LOWEST POSITION, CALL LIGHT WITHIN REACH. CALLS APPROPRIATELY AND IS ABLE TO ADVOCATE NEEDS EFFECTIVELY.
[2024-11-19] MEDS ORDERED: Insulin Human Lispro 100 Units/ML 3ML Syringe SC SCH (07:30)
[2024-11-19] MEDS ORDERED: Metoprolol Tartrate 25 MG Tab PO SCH ×2 (09:00→16:15)
[2024-11-19] MEDS ORDERED: Furosemide 20 MG Tab PO SCH (09:00)
[2024-11-19] MEDS ORDERED: Cosyntropin 0.25 MG / ML 1ML Vial IV ONE (11:55)
--- NOTE | 2024-11-19 18:17 | NUR ---
SHIFT SUMMARY; ASSUMED CARE AT 0700. A/A/OX3. PLEASANT AND COOPERATIVE WITH CARE. MOVES SELF IN BED, SAT IN RECLINER IN AFTERNOON. HR INCREASED IN AFTERNOON T0 140-180, REPORTS SOB BUT DENIES CP, BLOOD PRESSURE STABLE. TELEPHONE CALL TO DR. DYSON, VERBAL ORDERS GIVEN FOR INCREASE IN METOPROLOL PO, ORDERS PLACED. MEDICATED WITH 5MG IVP LOPRESSOR PER EMAR. APPROX 1 HOUR LATER PTS BRINGS IN A 32OZ MALTESE [place].clS DRINK, CUP EMPTY WHEN PATIENT ACCESS FOUND, PT STATES DRANK THE WHOLE DRINK. DRINK HAD APPROX 4-6 ESPRESSO SHOTS, BUT PATIENTS STATES IS OK BECAUSE DRINKS ALL THE TIME AND IS SUGAR FREE. EDUCATED ON CAFFIENE EFFECTS R/T HEART RATE, DR. DYSON UPDATED. HR CURRENTLY 125-135, VERBAL ORDERS GIVEN FOR CARDIZEM DRIP, WILL TITRATE PER ORDERS. 3L 02 VIA [place], USES URINAL AT BEDSIDE, WILL CONTINUE TO MONITOR AND TREAT UNTIL REPORT GIVEN TO MEDICAL DATA ANALYST RN.
[2024-11-19] MEDS ORDERED: Apixaban 5 MG Tab PO SCH (21:00)
[2024-11-20] VITALS (8 sets, daily range): BP systolic 97–119; BP diastolic 58–72
--- NOTE | 2024-11-20 06:45 | NUR ---
SHIFT SUMMARY: PT IS A&OX4, VERY [place], HAS BILAT HEARING AIDES AT BEDSIDE. PREFERS TO BE CALLED RUSSELL, HE IS PLEASANT AND COOPERATIVE WITH CARE. VSS ON 5L NC SATS >92%, THIS IS HIS BASELINE OXYGEN USE. HR AFLUTTER 90'S-110'S. DILT GTT OFF AT 0045. HR REMAINS 90'S-100'S. DENIES PAIN. NOOB THIS SHIFT, STATES HE USES A FWW AT BASELINE D/T DYSPNEA. USING URINAL INDEPENDENTLY IN BED, VOIDING ADEQUATE AMOUNTS OF CLEAR, YELLOW URINE. NO BM THIS SHIFT. PO BOWEL CARE ADMINISTERED. TOLERATING A CONS CARB DIET. BED IN LOWEST POSITION, CALL LIGHT WITHIN REACH. CALLS APPROPRIATELY AND IS ABLE TO ADVOCATE NEEDS EFFECTIVELY.
[2024-11-20] MEDS ORDERED: Metoprolol Tartrate 25 MG Tab PO SCH (09:00)
--- NOTE | 2024-11-20 18:20 | NUR ---
SHIFT SUMMARY; ASSUMED CARE AT 0700. A/A/OX4. 6L 02 VIA [place]. INTERMITANT HR 110-140, APPEARS TO INCREASE AFTER BREATHING TREATMENTS. MEDICATED WITH LOPRESSOR IV PRN PER EMAR. PO METOPROLOL ADJUSTED TODAY BY DR. DYSON. BLOOD PRESSURE STABLE, SATS >90%. DECLINES SITTING IN RECLINER CHAIR. ADJUSTS SELF IN BED, URINAL USED AT BEDSIDE. WILL CONTINUE TO MONITOR AND TREAT UNTIL REPORT GIVEN TO JAZMIN ECHEVERRIA RN.
[2024-11-20] MEDS ORDERED: Metoprolol Tartrate 50 MG Tab PO SCH (21:00)
[2024-11-20] MEDS ORDERED: NS 250 ML IV PRN (23:30)
[2024-11-21 01:42] LABS: Base Excess Venous 10.6 mmol/L; Bicarbonate Venous 33.5 mmol/L (24.0-30.0); PCO2 Venous 41.3 mmHg (38-42); pH Blood Venous 7.52 (7.34-7.37)
[2024-11-21 01:48] LABS: BASOPHILS ABSOLUTE AUTO 0.04 K/mm3 (0.00-0.23); BASOPHILS PERCENT AUTO 0 % (0-2); EOSINOPHILS ABSOLUTE AUTO 0.06 K/mm3 (0.00-0.68); EOSINOPHILS PERCENT AUTO 0 % (0-6); Hematocrit 27.4 % (37.0-53.0); IMMATURE GRAN ABSOLUTE AUTO 0.46 K/mm3 (0.00-0.10); IMMATURE GRAN PERCENT AUTO 2 % (0-1); LYMPHOCYTES ABSOLUTE AUTO 0.46 K/mm3 (0.84-5.20); LYMPHOCYTES PERCENT AUTO 2 % (21-46); MONOCYTES ABSOLUTE AUTO 1.07 K/mm3 (0.16-1.47); MONOCYTES PERCENT AUTO 5 % (4-13); Mean Corpuscular HGB 30.4 pg (26.0-34.0); Mean Corpuscular HGB Conc 32.8 g/dL (31.5-36.5); Mean Corpuscular Volume 93 fL (80-100); Mean Platelet Volume 9.5 fL (9.1-12.4); NEUTROPHILS ABSOLUTE AUTO 18.76 K/mm3 (1.96-9.15); NEUTROPHILS PERCENT AUTO 90 % (41-73); Platelet Count 241 K/mm3 (150-400); RDW Standard Deviation 49.4 fL (35.1-46.3); Red Blood Cell Count 2.96 M/mm3 (4.30-5.90); White Blood Cell Count 20.85 K/mm3 (4.00-11.30)
[2024-11-21 02:04] LABS: Bun/Creatinine Ratio 35.5 (12.0-20.0); Calcium, Blood 8.5 mg/dL (8.5-10.1); Creatinine, Blood 1.83 mg/dL (0.60-1.20)
[2024-11-21 03:25] VITALS: BP 114/64
[2024-11-21] MEDS ORDERED: Ampicillin Sod/Sulbactam Sod 3 GM in NS 100 ML IV SCH (04:44)
[2024-11-21] MEDS ORDERED: Azithromycin 500 MG in NS 250 ML IV SCH (04:45)
--- NOTE | 2024-11-21 06:24 | NUR ---
SHIFT SUMMARY PT A&Ox3. VERY [place]. PT C/O INCREASED SOB AROUND 0130. PT SAT UP IN BED AND O2 INCREASED TO 7L. RT CALLED AND GAVE BREATHING TX. RESIDENT ALSO CALLED AND ORDERS GIVEN FOR VBG, LABS AND C-XR 2V. PT's BREATHING BECAME MORE LABORED AND O2 SATS DROPPED TO 80's DURING TRANSPORT TO X-RAY SO O2 INCREASED TO 15L. PT's WORK OF BREATHING IMPROVED AND OXYGEN WAS DECREASED TO 9L AND PT MAINTAINING ABOVE 90%. PT ALSO WENT FOR STAT CT SCAN. RESIDENT AT BEDSIDE AND STATED HE WOULD CHANGE ABX REGIMINE AND ADD NEW ORDERS. INSULINE GLARGINE HELD AT HS D/T BG OF 104 AND TRENDING LOW BLOOD SUGARS IN THE MORNINGS. MORNING LAB GLUCOSE WAS 66. PT ATE A YOGURT AND BG INCREASED TO 99. VSS BUT BP SOFT. TELE SHOWED A-FIB WITH A HR BETWEEN 90's-120's T/O NIGHT HOWEVER PT DID NOT SUSTAIN ABOVE 110bpm. IV ABX GIVEN PER EMAR. BED ALARM ON. BED IN LOWEST POSITION AND CALL LIGHT IN REACH.
[2024-11-21] MEDS ORDERED: FentaNYL Citrate 50 MCG/ML 2 ML Injection ONE (06:47)
[2024-11-21] MEDS ORDERED: FentaNYL Citrate 50 MCG/ML 2 ML Injection IV ONE ×2 (06:50→07:15)
[2024-11-21 07:57] LABS: Automated BF RBC Count 0.034 M/mm3 (0-0); Automated BF WBC Count 2.703 K/mm3 (0-999)
[2024-11-21 07:58] LABS: Body Fluid WBC Count 2703 /mm3 (0-999); RBC Count, Body Fluid 34000 /mm3 (0-0)
[2024-11-21 08:10] LABS: Glucose, Body Fluid 41 mg/dL; Lactate Dehydrogenase, Body Fl 984 U/L; Protein, Body Fluid 3.9 g/dL; Triglycerides, Body Fluid 50 mg/dL
[2024-11-21 08:20] LABS: Albumin, Body Fluid 1.2 g/dL
[2024-11-21 08:47] LABS: Color, Body Fluid Red (None-Yellow); Total Cell Count, Body Fluid 100
[2024-11-21 08:48] LABS: Appearance, Body Fluid Bloody (Clear)
[2024-11-21 09:04] LABS: pH, Body Fluid 8.2
[2024-11-21 11:53] VITALS: BP 106/63
[2024-11-21 13:42] VITALS: BP 108/82
--- NOTE | 2024-11-21 13:46 | NUR ---
SOB / CALL TO MDs PT W/ LABORED BREATHING W/ RR 30s. SPO2 REQUIRING INCREASE FROM 6L HI-MARLY NC TO 13L HI MARLY W/ SPO2 88-92%. MD CANTU NOTIFIED W/ ORDER FOR STAT CXR & TO CALL HOSPITALIST TO BEDSIDE D/T UNABLE TO COME AT THAT TIME. MD DYSON TO BEDSIDE. CXR COMPLETE. W/ ORDER FOR VBG & STATES WILL DISCUSS CXR W/ AQUATIC PHYSIOTHERAPIST & RADIOLOGIST.
[2024-11-21 14:44] LABS: Base Excess Venous 9.3 mmol/L; Bicarbonate Venous 32.1 mmol/L (24.0-30.0); PCO2 Venous 41.1 mmHg (38-42); pH Blood Venous 7.51 (7.34-7.37)
[2024-11-21 16:42] VITALS: BP 115/70; BP 15/70
[2024-11-21] MEDS ORDERED: Meropenem 1,000 MG in NS 100 ML IV SCH (17:00)
--- NOTE | 2024-11-21 17:46 | NUR ---
END OF SHIFT PT A&O X4. TORRES MARTINEZ. VSS. MONITOR SHOWING AFLUTER, HR 100-130s. SPO2 > 92% ON 4-9L NC OR OXYMASK. R CHEST TUBE W/ 270 MLS SS OUTPUT THIS SHIFT, MARKED ON CT COLLECTION CHAMBER. PT W/ INTERMITTENT LABORED BREATHING. RR 20s-30s. O2 REQUIRING UP TO 15L HI-MARLY NC TODAY FOR SPO2 > 92%. PT TRANSITIONED TO OXYMASK FOR SLEEP D/T MOUTH BREATHING WHILE SLEEPING. HOSPITALIST & CLUB MANAGER TO BEDSIDE FOR RE-EVALUATION THIS SHIFT. PT RR EVEN & UNLABORED.
[2024-11-21] MEDS ORDERED: Vancomycin HCL 2,000 MG in NS 500 ML IV SCH (18:00)
[2024-11-21 19:39] VITALS: BP 110/58
[2024-11-21] MEDS ORDERED: Metoprolol Tartrate 25 MG Tab PO SCH (21:00)
[2024-11-21 23:08] VITALS: BP 134/99
--- NOTE | 2024-11-22 01:37 | NUR ---
UPDATE: PT WOKE UP FEELING SHORT OF BREATH AND CALLED THIS RN INTO ROOM. SPO2 92% UPON ARRIVAL. PT BOOSTED IN BED, BED ADJUSTED TO 45 DEGREES. PT TACHYPNEIC 26-30 BPM. SUPPLEMENTAL O2 INCREASED TO 9L. PT REQUESTING BREATHING TX, THIS RN PHONED RT. BREATHING TX GIVEN. PT REPORTS FEELING BETTER AT THIS TIME. CHEST TUBE REMAINS IN PLACE, PATENT, DRAINING SEROSANGUINEOUS FLUID. UNCHANGED.
--- NOTE | 2024-11-22 03:33 | NUR ---
ASSUMED CARE ASSUMED CARE OF PT AT 0330. REPORT TAKEN FROM JESSICA SR. VSS. RESTINGWH EYES CLOSED. OXY MASK @9L.
[2024-11-22 03:41] VITALS: BP 101/63
[2024-11-22 04:15] VITALS: BP 101/59
[2024-11-22 04:49] LABS: Base Excess Venous 10.2 mmol/L; Bicarbonate Venous 32.9 mmol/L (24.0-30.0); PCO2 Venous 46.7 mmHg (38-42); pH Blood Venous 7.47 (7.34-7.37)
[2024-11-22 04:59] LABS: BASOPHILS ABSOLUTE AUTO 0.05 K/mm3 (0.00-0.23); BASOPHILS PERCENT AUTO 0 % (0-2); EOSINOPHILS ABSOLUTE AUTO 0.13 K/mm3 (0.00-0.68); EOSINOPHILS PERCENT AUTO 1 % (0-6); Hematocrit 26.4 % (37.0-53.0); Hemoglobin 8.3 g/dL (13.5-17.5); IMMATURE GRAN ABSOLUTE AUTO 0.32 K/mm3 (0.00-0.10); IMMATURE GRAN PERCENT AUTO 2 % (0-1); LYMPHOCYTES ABSOLUTE AUTO 0.24 K/mm3 (0.84-5.20); LYMPHOCYTES PERCENT AUTO 1 % (21-46); MONOCYTES ABSOLUTE AUTO 0.83 K/mm3 (0.16-1.47); MONOCYTES PERCENT AUTO 5 % (4-13); Mean Corpuscular HGB 29.7 pg (26.0-34.0); Mean Corpuscular HGB Conc 31.4 g/dL (31.5-36.5); Mean Corpuscular Volume 95 fL (80-100); Mean Platelet Volume 9.4 fL (9.1-12.4); NEUTROPHILS ABSOLUTE AUTO 15.83 K/mm3 (1.96-9.15); NEUTROPHILS PERCENT AUTO 91 % (41-73); Platelet Count 227 K/mm3 (150-400); RDW Coefficient Variation 15.1 % (11.7-14.2); RDW Standard Deviation 51.5 fL (35.1-46.3); Red Blood Cell Count 2.79 M/mm3 (4.30-5.90)
[2024-11-22 05:49] LABS: Bun/Creatinine Ratio 32.2 (12.0-20.0); Calcium, Blood 8.4 mg/dL (8.5-10.1); Creatinine, Blood 1.8 mg/dL (0.60-1.20); Potassium, Blood 3.8 mmol/L (3.5-5.5)
--- NOTE | 2024-11-22 06:04 | NUR ---
SHIFT SUMMARY ASSUMED CARE OF PT AT 0330.PT IS A/OX4. HEART SOUNDS IRREGULAR. LUNG SOUNDS COURSE AND DIMINISHED IN THE L LUNG. PT STATES FEELING IRED THIS AM. PT USED URINAL DURING THE NOC. TEST TUBE DRAINING MINIMAL, 60ML, OF BLOOD TINGED LIQUID.
[2024-11-22 09:06] VITALS: BP 113/62
[2024-11-22 11:43] VITALS: BP 90/69
[2024-11-22 15:42] VITALS: BP 110/60
--- NOTE | 2024-11-22 17:50 | NUR ---
SHIFT SUMMARY PT A&Ox4, CALLS AND COMMUNICATES NEEDS APPROPRIATEY, EMMONAK. BP STABLE, SINUS WITH FREQUENT PACs 100's, DENIES CP/PRESSURE. SpO2> 90% 6L VIA NC, REPORTS INTERMITTENT SOB. R CHEST TUBE REMAINS PATENT, CONNECTED TO SUCTION. 60mLs OF SEROSANGUINEOUS OUTPUT. C/O DISCOMFORT AT CHEST TUBE SITE AND PAIN WHEN COUGHING. PT HAS VERY CONGESTED COUGH THAT IS WEAK D/T PAIN. 1 ASSIST WITH FWW. NO OTHER EVENTS, WILL REPORT TO ONCOMING RN.
[2024-11-22] MEDS ORDERED: Vancomycin HCL 1,250 MG in NS 250 ML IV SCH (18:00)
[2024-11-22] MEDS ORDERED: Ipratropium/Albuterol SulF 2.5-0.5MG/3 ML Amp INH SCH (18:55)
[2024-11-22 20:19] VITALS: BP 111/54
[2024-11-22] MEDS ORDERED: Insulin Glargine-Yfgn 100 Unit/mL 3 ML SYR SC SCH (21:00)
[2024-11-23] VITALS (7 sets, daily range): BP systolic 103–120; BP diastolic 49–71
[2024-11-23 04:53] LABS: BASOPHILS ABSOLUTE AUTO 0.02 K/mm3 (0.00-0.23); BASOPHILS PERCENT AUTO 0 % (0-2); EOSINOPHILS ABSOLUTE AUTO 0.18 K/mm3 (0.00-0.68); EOSINOPHILS PERCENT AUTO 1 % (0-6); Hematocrit 26.1 % (37.0-53.0); Hemoglobin 8.1 g/dL (13.5-17.5); IMMATURE GRAN ABSOLUTE AUTO 0.28 K/mm3 (0.00-0.10); IMMATURE GRAN PERCENT AUTO 2 % (0-1); LYMPHOCYTES ABSOLUTE AUTO 0.26 K/mm3 (0.84-5.20); LYMPHOCYTES PERCENT AUTO 2 % (21-46); MONOCYTES ABSOLUTE AUTO 0.86 K/mm3 (0.16-1.47); MONOCYTES PERCENT AUTO 6 % (4-13); Mean Corpuscular Volume 97 fL (80-100); Mean Platelet Volume 9.8 fL (9.1-12.4); NEUTROPHILS ABSOLUTE AUTO 14.01 K/mm3 (1.96-9.15); NEUTROPHILS PERCENT AUTO 90 % (41-73); Platelet Count 237 K/mm3 (150-400); RDW Coefficient Variation 15.2 % (11.7-14.2); White Blood Cell Count 15.61 K/mm3 (4.00-11.30)
[2024-11-23 05:14] LABS: Bun/Creatinine Ratio 30.4 (12.0-20.0); Calcium, Blood 8.3 mg/dL (8.5-10.1); Creatinine, Blood 1.84 mg/dL (0.60-1.20); Potassium, Blood 3.9 mmol/L (3.5-5.5)
--- NOTE | 2024-11-23 07:15 | NUR ---
PT STABLE THROUGHOUT THE SHIFT. PT WAS PLACED ON 40L 70% AIRVO WITH IMPROVED SAT FROM 89% TO 98%. CHEST TUBE REMAINS IMPLACE AND PRODUCING SMALL AMOUNT OF SEROSANG DRAINAGE. PT TOLERATING IV ABX WELL. PT REPOSITIONED FREQUENTLY THROUGHOUT THE SHIFT. PT AOX4 AND VERY COOPERATIVE WITH CARE.
[2024-11-23] MEDS ORDERED: MethylPREDNISolone Sod Succ 40 MG VIAL IV SCH (16:00)
--- NOTE | 2024-11-23 17:35 | NUR ---
SHIFT SUMMARY PT A&Ox4, CALLS AND COMMUNICATES NEEDS APPROPRIATEY, [place]. BP STABLE, SINUS WITH PACs 80's, DENIES CP/PRESSURE. SpO2> 90% 40L 45% FiO2 VIA AIRVO, REPORTS INTERMITTENT SOB. R CHEST TUBE REMAINS PATENT, CONNECTED TO SUCTION. NO OUTPUT THIS SHIFT. C/O DISCOMFORT AT CHEST TUBE SITE AND PAIN WHEN COUGHING. PT HAS VERY CONGESTED COUGH THAT IS WEAK D/T PAIN. 1 ASSIST WITH FWW, PATIENT DID NOT WANT TO GET TO CHAIR TODAY. NO OTHER EVENTS, WILL REPORT TO ONCOMING RN.
[2024-11-23 17:39] LABS: Vancomycin, Trough 26.1 ug/mL (5.0-10.0)
[2024-11-23] MEDS ORDERED: Insulin Glargine-Yfgn 100 Unit/mL 3 ML SYR SC SCH (21:00)
[2024-11-24 03:42] VITALS: BP 98/66
[2024-11-24 04:00] LABS: BASOPHILS ABSOLUTE AUTO 0.02 K/mm3 (0.00-0.23); BASOPHILS PERCENT AUTO 0 % (0-2); EOSINOPHILS PERCENT AUTO 0 % (0-6); Hematocrit 25.2 % (37.0-53.0); Hemoglobin 7.9 g/dL (13.5-17.5); IMMATURE GRAN ABSOLUTE AUTO 0.27 K/mm3 (0.00-0.10); IMMATURE GRAN PERCENT AUTO 2 % (0-1); LYMPHOCYTES ABSOLUTE AUTO 0.12 K/mm3 (0.84-5.20); LYMPHOCYTES PERCENT AUTO 1 % (21-46); MONOCYTES ABSOLUTE AUTO 0.18 K/mm3 (0.16-1.47); MONOCYTES PERCENT AUTO 1 % (4-13); Mean Corpuscular HGB 30.3 pg (26.0-34.0); Mean Corpuscular HGB Conc 31.3 g/dL (31.5-36.5); Mean Corpuscular Volume 97 fL (80-100); Mean Platelet Volume 9.8 fL (9.1-12.4); NEUTROPHILS ABSOLUTE AUTO 12.98 K/mm3 (1.96-9.15); NEUTROPHILS PERCENT AUTO 96 % (41-73); Platelet Count 226 K/mm3 (150-400); RDW Coefficient Variation 15.1 % (11.7-14.2); RDW Standard Deviation 52.1 fL (35.1-46.3); Red Blood Cell Count 2.61 M/mm3 (4.30-5.90); White Blood Cell Count 13.57 K/mm3 (4.00-11.30)
[2024-11-24 04:30] LABS: Anion Gap 10 mmol/L (3-11); Blood Urea Nitrogen 65 mg/dL (8-24); Bun/Creatinine Ratio 41.4 (12.0-20.0); CO2, Blood 33 mmol/L (21-32); Calcium, Blood 8.4 mg/dL (8.5-10.1); Chloride, Blood 97 mmol/L (98-108); Creatinine, Blood 1.57 mg/dL (0.60-1.20); Glomerular Filtration Rate 45 (60-); Glucose, Blood 198 mg/dL (70-99); Potassium, Blood 4.4 mmol/L (3.5-5.5); Sodium, Blood 136 mmol/L (136-145); Vancomycin, Random 20.6 ug/mL
--- NOTE | 2024-11-24 05:01 | NUR ---
SHIFT SUMMARY: PATIENT IS ALERT AND ORIENTED X4 AND COOPERATIVE WITH HIS CARE. IS HARD OF HEARING, DOES HAVE HEARING AIDS WITH HIM. PATIENT IS ON TELE SHOWING SINUS WITH OCCASIONALLY PVC'S WITH RATE IN 70-80'S. SATTING >92% ON AIRVO AT 40 LITERS AND ANYWHERE FROM 67-70% FIO2. PATIENT DESATS INTO THE 80'S WHEN COUGHING AND NEEDS TO BE TIRATED UP INTO THE 90% FIO2 AND TAKES A MINUTE OR SO TO RECOVER. PATIENT WAS ABLE TO GET SOME REST THROUGHOUT THE SHIFT. PATIENT DECLINED WANTING TO USE THE BEDSIDE COMMODE FOR A BOWEL MOVEMENT AND ASKED FOR THE BED GUNTER. THIS RN EDUCATED PATIENT HE SHOULD TRY TO AMBULATE IT IS GOOD FOR HIM, BUT CONTINUED TO DECLINE. PATIENT CONTINUES TO GET IV ANTIBIOTICS & STEROIDS. PATIENT HAS CALL LIGHT WITHIN REACH, BED IN LOWEST POSITION & NOT EXPRESSING ANY NEEDS AT THIS TIME.
--- NOTE | 2024-11-24 09:00 | NUR ---
NURSING PCU DAYSHIFT: Assumed care of pt at approx 0700. A/O, pleasant, very [place], cooperative w/care. General weakness though able to assist w/ADL's. Denies any pain/discomfort at rest. Skin pale w/scattered bruising/scabs t/o, abrasion to coccyx, open to air. Tele in place, NSR w/PAC's, SBP 111 prior to a.m. meds, no c/o CP/pressure, trace general edema. L/S coarse in upper lobes, crackles in LLL, R mid/lower lobes tight w/fine crackles, occ AGRICULTURAL EQUIPMENT SALES MANAGER cough, dyspnea w/minimal exertion, O2 sat mid 90's on 40L/55% Airvo though drops to low 80's w/any movement, R posterior CT to -25cm suction, non-fluctuating, minimal serosanguineous output in tube, continuous O2 monitoring in place. Abd SNT, BT+, voids using urinal, attends in place. PIV x1, s/l w/IV abx as scheduled. Pt resting comfortably at this time after assistance w/bedpan, atteds/linen change, and repositioning. Seen by PMD, plan of care discussed. Awaiting rounding from pipeman. Call light in reach and pt is able to use w/o difficulty. No s/s of acute distress, cont to monitor for changes.
[2024-11-24 09:14] VITALS: BP 111/63
[2024-11-24] MEDS ORDERED: Vancomycin HCL 1,000 MG in NS 250 ML IV ONE (10:00)
[2024-11-24 12:05] VITALS: BP 117/64
[2024-11-24 14:43] LABS: TRANSFERRIN 119 mg/dL (200-360)
[2024-11-24 15:44] VITALS: BP 117/64
--- NOTE | 2024-11-24 17:46 | NUR ---
NURSING PCU DAYSHIFT SUMMARY: Pt has had not had significant changes t/o shift. Respiratory status remains very fragile w/O2 sat dropping quickly to low 70's w/minimal exertion or slight lowering of HOB. Though is able to recover w/deep breathing instruction, amount of time needed to recover to sat >90% is increasing. Continues to have harsh cough though is now producing good amount of thick lynch/banks sputum, specimen sent to lab per d/o. Seen by pulmonology this afternoon, attempted aspiration to evaluate for clot in line, tube clear. Family at bedside this evening for visit. Pulm came again to bedside to meet w/spouse followed by discussion outside of room to address prognosis and plan of care. Questions addressed at that time. Pt currently sitting up in bed having supper. Call light in reach, family remains at bedside, cont to monitor until rpt is given to NOC RN.
--- NOTE | 2024-11-24 19:20 | NUR ---
ASSUMPTION NOTE: THIS RN TO ASSUME CARE OF PATIENT. PATIENT IS AWAKE IN BED AND WATCHING TV. DAY SHIFT & THIS RN DID BEDSIDE SHIFT REPORT. PATIENT VOIDED IN URINAL AND EMPTIED. PATIENT DENIED HAVING ANY CHEST PAIN/PRESSURE OR FEELFING ANYMORE SHORT OF BREATH THAN USUAL. PATIENT HAD CALL LIGHT WITHIN REACH, BED IN LOWEST POSITION AND DENIED NEEDING ANYTHING AT THE MOMENT.
[2024-11-24 19:37] VITALS: BP 119/61
[2024-11-24 23:16] VITALS: BP 110/60
[2024-11-25] VITALS (8 sets, daily range): BP systolic 106–142; BP diastolic 64–86
--- NOTE | 2024-11-25 04:48 | NUR ---
END OF SHIFT SUMMARY: PATIENT IS ALERT AND ORIENTED X4 AND COOPERATIVE WITH HIS CARE. IS VERY HARD OF HEARING, HAS HEARING AIDS AT BEDSIDE BUT NOT WORKING AT TIMES. PATIENT SATTING >92% ON AIRVO 60 LITERS 70% FIO2. ON TELE SHOWING SINUS RHYTHM RATE 70-80 S. PATIENT HAD A COUGHING FIT THROUGHOUT THE SHIFT AND DESATTED DOWN INTO THE 80 S, WAS THEN BUMPED UP ON HIS LITER RATE ON AIRVO BY RT. PATIENT WAS ABLE TO REST THROUGHOUT SHIFT. PLAN CONTINUES TO GIVE IV ANTIBIOTICS & STEROIDS AND LOWER THE OXYGEN DEMAND. PATIENT HAS CALL LIGHT WITHIN REACH, BED IN LOWEST POSITION AND NOT NEEDING ANYTHING AT THIS TIME.
[2024-11-25 05:24] LABS: BASOPHILS ABSOLUTE AUTO 0.02 K/mm3 (0.00-0.23); BASOPHILS PERCENT AUTO 0 % (0-2); EOSINOPHILS PERCENT AUTO 0 % (0-6); Hematocrit 22.5 % (37.0-53.0); Hemoglobin 7.3 g/dL (13.5-17.5); IMMATURE GRAN ABSOLUTE AUTO 0.28 K/mm3 (0.00-0.10); IMMATURE GRAN PERCENT AUTO 2 % (0-1); LYMPHOCYTES ABSOLUTE AUTO 0.22 K/mm3 (0.84-5.20); LYMPHOCYTES PERCENT AUTO 1 % (21-46); MONOCYTES ABSOLUTE AUTO 0.51 K/mm3 (0.16-1.47); MONOCYTES PERCENT AUTO 3 % (4-13); Mean Corpuscular HGB 30.4 pg (26.0-34.0); Mean Corpuscular HGB Conc 32.4 g/dL (31.5-36.5); Mean Corpuscular Volume 94 fL (80-100); Mean Platelet Volume 9.9 fL (9.1-12.4); NEUTROPHILS ABSOLUTE AUTO 16.33 K/mm3 (1.96-9.15); NEUTROPHILS PERCENT AUTO 94 % (41-73); Platelet Count 241 K/mm3 (150-400); RDW Coefficient Variation 15.1 % (11.7-14.2); RDW Standard Deviation 51.3 fL (35.1-46.3); White Blood Cell Count 17.36 K/mm3 (4.00-11.30)
[2024-11-25 06:01] LABS: Anion Gap 11 mmol/L (3-11); Blood Urea Nitrogen 66 mg/dL (8-24); Bun/Creatinine Ratio 44.3 (12.0-20.0); CO2, Blood 33 mmol/L (21-32); Calcium, Blood 8.5 mg/dL (8.5-10.1); Chloride, Blood 99 mmol/L (98-108); Creatinine, Blood 1.49 mg/dL (0.60-1.20); Glomerular Filtration Rate 48 (60-); Glucose, Blood 161 mg/dL (70-99); Sodium, Blood 139 mmol/L (136-145); Vancomycin, Random 24.3 ug/mL
[2024-11-25 07:45] LABS: Acinetobacter baumannii DNA Not Detected copy/mL (NOT DETECT); Enterobacter cloacae DNA Not Detected copy/mL (NOT DETECT); Escherichia coli DNA Not Detected copy/mL (NOT DETECT); Haemophilus influenzae DNA Not Detected copy/mL (NOT DETECT); Klebsiella aerogenes DNA Not Detected copy/mL (NOT DETECT); Klebsiella oxytoca DNA Not Detected copy/mL (NOT DETECT); Klebsiella pneumoniae DNA Not Detected copy/mL (NOT DETECT); Moraxella catarrhalis DNA Not Detected copy/mL (NOT DETECT); Proteus sp DNA Not Detected copy/mL (NOT DETECT); Pseudomonas aeruginosa DNA Not Detected copy/mL (NOT DETECT); Serratia marcescens DNA Not Detected copy/mL (NOT DETECT); Staphylococcus aureus DNA Not Detected copy/mL (NOT DETECT); Streptococcus agalactiae DNA Not Detected copy/mL (NOT DETECT); Streptococcus pneumoniae DNA Not Detected copy/mL (NOT DETECT); Streptococcus pyogenes DNA Not Detected copy/mL (NOT DETECT)
[2024-11-25 07:46] LABS: Adenovirus DNA Not Detected (NOT DETECT); Chlamydia pneumonia Not Detected (NOT DETECT); Human Coronavirus RNA Not Detected (NOT DETECT); Human Metapneumovirus RNA Not Detected (NOT DETECT); Influenza virus A RNA Not Detected (NOT DETECT); Influenza virus B RNA Not Detected (NOT DETECT); Legionella pneumophila Not Detected (NOT DETECT); Mycoplasma pneumoniae Not Detected (NOT DETECT); Parainfluenza virus RNA Not Detected (NOT DETECT); Respiratory syncytial Vir RNA Not Detected (NOT DETECT); Rhinovirus+Enterovirus RNA Not Detected (NOT DETECT)
[2024-11-25] MEDS ORDERED: Lactobacil 2-S.Thermo-Bifido 1 1 Cap PO SCH (09:00)
[2024-11-25] MEDS ORDERED: Tamsulosin HCl 0.4 MG Cap PO SCH (09:00)
--- NOTE | 2024-11-25 14:46 | NUR ---
NOTES; PT HAD CHEST TUBE OUT AROUND LUNCH TIME BY DR FONTANA. AFTER AN HOUR PT HAD LEAKED OUT QUITE A BIT OF BLOOD FROM THE DRESSING, DRESSING AND SANTOS WERE SATURATED, NOTIFIED DR FONTANA APPLIED MANUAL PRESSURE UNTIL DR FONTANA CAME BY TO CHANGE THE DRESSING. PRESSURE DRESSING NOW IN PLACE. DR FELDMAN MADE AWARE, TO RECHECK HGB SINCE PT IS ON ELIQUIS BID. FAMILY AT BEDSIDE SON AND GRAND DAUGHTER, PALLIATIVE CARE RN ALSO ABLE TO TALK TO THE REGARDING ADVANCE DIRECTIVE, PT STILL WANTING TO BE FULL CODE, TO FEEL BETTER AND GO HOME, DESPITE OF INFORMATION GIVEN. PT REMAINS FULL CODE AT THIS TIME. PT STILL ON AIRVO 60L 55% FIO2, PT DESATS AND COULDNT CATCH BREATH WITH MINIMAL EXERTION, TAKES TIME TO RECOVER, SHALLOW PURSE LIP BREATHING. THE REST OF THE VITALS STABLE. PT USES URINAL FOR VOIDING, REPOSITIONED FOR COMFORT. WILL CONTINUE TO MONITOR
[2024-11-25 15:28] LABS: Hematocrit 22.1 % (37.0-53.0)
--- NOTE | 2024-11-25 15:37 | NUR ---
MET WITH PT AT BEDSIDE, SON ALSO PRESENT. PT STATES HE WANTS TO "LIVE," AND WANTS TO BE RESUSCITATED IF HE DIES. HE IS ALERT AND ORIENTED, KNOWS WHERE HE IS, KNOWS THE DATE, AND WHO IS SON IS. IS AWARE OF THIS, AND STATES CONCERNES THAT "DOESN'T UNDERSTAND" HOW SICK HE IS. SHE IS TEARFUL, STATING SHE WANTS HIS TO STAY AROUND TOO, BUT DOESN'T WANT TO BE SELFISH TO HIM. WILL CONTINUE TO SUPPORT BOTH PT AND PT'S .
--- NOTE | 2024-11-25 18:37 | NUR ---
PT SUMMARY; SEE PREVIOUS NOTES. PT CURRENTLY TRANSFUSING 1U PRBC AT THIS TIME, HGB RECHECK WAS AT 7.0. BLOOD CONSENT SIGNED. VITALS HRR SR 90'S WITH PACS, SBP 120'S, SATS ABOVE 90% ON AIRVO 55L 40% FIO2, PT STILL DESATS WIHT ACTIVITY, SOB WITH MINIMAL EXERTION. DENIES ANY CHEST PAIN/DISCOMFORT AT THIS TIME. PT HAS BEEN ABLE TO PARTICIPATE WITH CARE. WILL CONTINUE TO MONITOR PT, TO GIVE REPORT TO ONCOMING SHIFT
--- NOTE | 2024-11-25 19:48 | NUR ---
ASSUMPTION OF CARE ASSUMED PT'S CARE AT 1900,BEDSIDE REPORT COMPLETED WITH DAYSMIFT NURSE.PLAN OF CARE REVIEWED WITH PT.BLOOD TRANFUSING ONGOING AT 125ML/HR.PT DENIES S/S OF BLOOD TRANSFUSION REACTION.PRESSURE DRESSING TO CHEST TUBE SITE CDI.PT DENIES PAIN,DENIES NEEDS.CALL LIGHT AND PT'S ITEMS WITHIN REACH.WILL CONTINUE TO MONITOR.
[2024-11-25] MEDS ORDERED: Vancomycin HCL 750 MG in NS 250 ML IV SCH (21:00)
[2024-11-25 23:01] LABS: Vancomycin, Random 18.8 ug/mL
[2024-11-26 00:37] VITALS: BP 126/72
[2024-11-26 04:00] VITALS: BP 139/77
[2024-11-26 04:10] LABS: Hematocrit 22.3 % (37.0-53.0); Hemoglobin 7.4 g/dL (13.5-17.5); Mean Corpuscular HGB Conc 33.2 g/dL (31.5-36.5); Mean Corpuscular Volume 90 fL (80-100); Mean Platelet Volume 9.5 fL (9.1-12.4); Platelet Count 209 K/mm3 (150-400); RDW Coefficient Variation 17.1 % (11.7-14.2); RDW Standard Deviation 55.1 fL (35.1-46.3); Red Blood Cell Count 2.47 M/mm3 (4.30-5.90)
[2024-11-26 04:46] LABS: Bun/Creatinine Ratio 51.1 (12.0-20.0); Calcium, Blood 8.1 mg/dL (8.5-10.1); Creatinine, Blood 1.35 mg/dL (0.60-1.20); Potassium, Blood 4.2 mmol/L (3.5-5.5)
--- NOTE | 2024-11-26 05:52 | NUR ---
SHIFT SUMMARY PT HAS BEEN SLEEPING ON/OFF THROUGHOUT THE NIGHT.NOTED INCREASED WOB WHILE AWAKE,OXYGEN SATURATION DROPS DOWN TO 85% BUT DOES NOT SUSTAIN.PT MAINTAINS OXYGEN SATURATION >92% WHILE SLEEPING.DRESSING TO CHEST TUBE REMOVAL SITE CDI.RECEIVED 1 UNIT OF PRBC,NO TRANSFUSION REACTION NOTED.PT DENIES PAIN,DENIES NEEDS.CALL LIGHT AND PT'S ITEMS WITHIN REACH.WILL REPORT TO DAYSHIFT NURSE FOR CONTINUITY TO CARE.
[2024-11-26 07:38] VITALS: BP 102/65
[2024-11-26] MEDS ORDERED: Meropenem 1,000 MG in NS 100 ML IV SCH (08:00)
[2024-11-26 11:49] VITALS: BP 128/75
[2024-11-26 13:37] LABS: Hematocrit 23.6 % (37.0-53.0); Hemoglobin 7.6 g/dL (13.5-17.5)
[2024-11-26] MEDS ORDERED: PredniSONE 20 MG Tab PO SCH (15:00)
[2024-11-26 15:33] VITALS: BP 130/68
--- NOTE | 2024-11-26 17:36 | NUR ---
PT SUMMARY; PT HAS IMPROVED STATUS FROM YESTERDAY, PT NOW ON NASAL CANNULA 3L SATS KEPT ABOVE 90%, PT STILL GETS SOB WITH EXERTION. ABLE TO TOLERATE SITTING ON THE SIDE OF TH BED FOR BREAKFAST THEN UP IN THE CHAIR FOR LUNCH 1PA WITH GAIT BELT. PT ALSO USED BSC AND HAD A BM, USES URINAL FOR VOIDING. PT/OT WAS ORDERED PT ABLE TO PARTICIPATE ON BOTH. MULTIPLE FAMILY VISITED TODAY, SON AND WAS GIVEN UPDATE REGARDING PTS STATUS. VITALS HRR SR 80'S, SBP 120-130S, AFEBRILE. DR GOMEZ ABLE TO COME BY AND SEE PT THIS AFTER NOON, CXR TODAY SHOWS IMPROVEMENT. CHEST TUBE DRESSING SITE REMAINED IN PLACE CDI. PT HAS BEEN COOPERATIVE WITH CARES. WILL CONTINUE CURRENT TREATMENT, WILL REPORT TO ONCOMING SHIFT
--- NOTE | 2024-11-26 19:33 | NUR ---
ASSUMPTION OF CARE ASSUMED PT'S CARE AT 1900,BEDSIDE REPORT COMPLETED.PT RESTING IN BED WITH EYES CLOSED,OPENS EYES TO VOICE.ON 3L OXYGEN VIA NASAL CANNULA,OXYGEN SATURATION 98%.PLAN OF CARE REVIEWED.PT DENIES PAIN,DENIES SOB,DENIES NEEDS.CALL LIGHT AND PT'S ITEMS WITHIN REACH.WILL CONTINUE TO MONITOR.
[2024-11-26 20:04] VITALS: BP 113/72
[2024-11-27] VITALS (7 sets, daily range): BP systolic 107–151; BP diastolic 56–77
[2024-11-27 04:10] LABS: Hematocrit 21.3 % (37.0-53.0); Hemoglobin 7.1 g/dL (13.5-17.5); Mean Corpuscular HGB 30.3 pg (26.0-34.0); Mean Corpuscular HGB Conc 33.3 g/dL (31.5-36.5); Mean Corpuscular Volume 91 fL (80-100); Mean Platelet Volume 9.8 fL (9.1-12.4); Platelet Count 202 K/mm3 (150-400); RDW Standard Deviation 55.4 fL (35.1-46.3); Red Blood Cell Count 2.34 M/mm3 (4.30-5.90); White Blood Cell Count 14.14 K/mm3 (4.00-11.30)
[2024-11-27 04:36] LABS: Calcium, Blood 8.4 mg/dL (8.5-10.1); Creatinine, Blood 1.19 mg/dL (0.60-1.20)
--- NOTE | 2024-11-27 06:08 | NUR ---
SHIFT SUMMARY PT SLEPT MOST OF THE NIGHT,UP TO THE BEDSIDE COMMODE WITH 2 STAFF,WALKER AND A GAIT BELT.PT HAD A BOWEL MOVEMENT.USED 3L OF OXYGEN THROUGHOUT THE NIGHT,MAINTAINED OXYGEN SATURATION >93%.REPORTS THAT HIS BREATHING IS BETTER,LESS COUGHING THIS SHIFT.PRESSURE DRESSING TO CHEST TUBE REMOVAL SITE ON HIS RIGHT FLANK CDI.PT DENIES PAIN,DENIES SOB,DENIES NEEDS.OCCASIONALLY ASKS FOR OXYGEN FLOW RATE INCREASED BUT HIS OXYGEN SATURATION WOULD BE >92% ON 3L.WILL GIVE REPORT TO DAYSHIFT NURSE FOR CONTINUITY OF CARE.
--- NOTE | 2024-11-27 17:54 | NUR ---
SHIFT SUMMARY PATIENT ALERT AND INTERACTIVE BUT VERY HARD OF HEARING. 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 PATIENT UP TO CHAIR FOR MEALS. PATIENT ABLE TO TRANSFER WITH ONE PERSON ASSIST WITH GATE BELT AND WALKER. NO SIGNS OF ACITVE BLEEDING NOTED. PATIENT CONTINUES TO HAVE A LOW H&H. PATIENT DENIES ANY PAIN. CONTINUES ON 3L 02. PROVIDED EDUCATION RELATED TO COUGHING AND DEEP BREATHING. FAMILY IN AND OUT ALL DAY. CASE MANAGEMENT DISCUSSED PLANS FOR REHAB WHEN MEDICALLY STABLE.
[2024-11-27] MEDS ORDERED: Insulin Glargine-Yfgn 100 Unit/mL 3 ML SYR SC ONE (21:00)
[2024-11-27] MEDS ORDERED: Insulin Human Lispro 100 Units/ML 3ML Syringe SC SCH (21:00)
[2024-11-27] MEDS ORDERED: Insulin Glargine-Yfgn 100 Unit/mL 3 ML SYR SC SCH (21:15)
[2024-11-27 21:16] LABS: Vancomycin, Trough 19.2 ug/mL (5.0-10.0)
[2024-11-27] MEDS ORDERED: Vancomycin HCL 750 MG in NS 250 ML IV SCH (22:00)
--- NOTE | 2024-11-27 23:50 | NUR ---
SHIFT SUMMARY- NO ACUTE CHANGES OTHER THAN INCREASING LANTUS FROM 15 UNITS TO 20 AND STARTING PATIENT ON A LOW SLIDING SCALE WITH HUMALOG.
[2024-11-28 03:02] VITALS: BP 148/78
[2024-11-28 03:20] LABS: Hematocrit 21.9 % (37.0-53.0); Hemoglobin 7.1 g/dL (13.5-17.5); Mean Corpuscular HGB 29.8 pg (26.0-34.0); Mean Corpuscular HGB Conc 32.4 g/dL (31.5-36.5); Mean Corpuscular Volume 92 fL (80-100); Mean Platelet Volume 9.3 fL (9.1-12.4); Platelet Count 203 K/mm3 (150-400); RDW Coefficient Variation 16.3 % (11.7-14.2); RDW Standard Deviation 53.8 fL (35.1-46.3); Red Blood Cell Count 2.38 M/mm3 (4.30-5.90); White Blood Cell Count 14.91 K/mm3 (4.00-11.30)
[2024-11-28 03:44] LABS: Bun/Creatinine Ratio 64.5 (12.0-20.0); Calcium, Blood 8.3 mg/dL (8.5-10.1); Creatinine, Blood 1.07 mg/dL (0.60-1.20); Potassium, Blood 4.2 mmol/L (3.5-5.5)
[2024-11-28 07:55] VITALS: BP 138/80
[2024-11-28 11:38] VITALS: BP 113/87
[2024-11-28] MEDS ORDERED: Furosemide 10 MG/ML 4ML Vial IV SCH (13:00)
[2024-11-28 16:26] VITALS: BP 147/81
[2024-11-28 16:44] LABS: Hemoglobin 7.2 g/dL (13.5-17.5)
--- NOTE | 2024-11-28 17:04 | NUR ---
PATIENT A/O X4 AND INTERACTIVE THROUGHOUT DAY. ASSISTED TO BSC X1 PERSON, FWW, AND GAIT BELT. PT ON 5L O2 NASAL CANNULA. REPORTS NO SOB OR TROUBLE BREATHING. PT IS NSR 70S WITH MILD LOWER EXTREMITY EDEMA WITH A CAP REFILL >3. SCATTERED BRUSING NOTED, WITH A LARGE BRUISE TO THE SIMONE. CHEST TUBE DRESSING C/D/I ON THE PATINETS RIGHT SIDE.
[2024-11-28] MEDS ORDERED: Insulin Glargine-Yfgn 100 Unit/mL 3 ML SYR SC SCH (20:00)
[2024-11-28 20:16] VITALS: BP 138/80
[2024-11-29 00:34] VITALS: BP 153/74
[2024-11-29 03:54] LABS: Hematocrit 21.9 % (37.0-53.0); Hemoglobin 7.2 g/dL (13.5-17.5); Mean Corpuscular HGB 30.6 pg (26.0-34.0); Mean Corpuscular HGB Conc 32.9 g/dL (31.5-36.5); Mean Corpuscular Volume 93 fL (80-100); Mean Platelet Volume 9.9 fL (9.1-12.4); NRBC ABSOLUTE 0.02 K/mm3 (0.00-0.02); NRBC Auto 0.1 /100 WBC (0.0-0.2); Platelet Count 214 K/mm3 (150-400); RDW Coefficient Variation 16.1 % (11.7-14.2); RDW Standard Deviation 53.4 fL (35.1-46.3); Red Blood Cell Count 2.35 M/mm3 (4.30-5.90); White Blood Cell Count 16.14 K/mm3 (4.00-11.30)
[2024-11-29 04:19] LABS: Bun/Creatinine Ratio 70.2 (12.0-20.0); Calcium, Blood 8.3 mg/dL (8.5-10.1); Creatinine, Blood 1.04 mg/dL (0.60-1.20); Potassium, Blood 4.1 mmol/L (3.5-5.5)
[2024-11-29 04:34] VITALS: BP 136/77
--- NOTE | 2024-11-29 06:31 | NUR ---
PT STABLE THROUGHOUT THE SHIFT. PT REMAINS ON 4-6L O2 NC. NO C/O CHEST PAIN BUT DOES ENDORSE OCCASSIONAL DYSPNEA. COUGH/DEEP BREATHING ENCOURAGE. NEBULIZED RESP TREATMENTS DO IMPROVE DYSPNEA PER PT. PT DOES HAVE NON-PRODUCTIVE COUGH. PT AOX4, USES CALL LIGHT APPROPRIATELY, ABLE TO USE URINAL INDEPENDENTLY IN BED. PT HAS HAD GOOD URINARY OUTPUT THIS SHIFT. SCDS IN PLACE. PT TOLERATING IV ABX WELL. PT CONTINUES TO HAVE 3+ PITTING EDEMA TO LOWER EXTREMITIES AND NON-PITTTING EDEMA GENERALIZED. PT [place], HEARING AIDS AT BEDSIDE.
[2024-11-29 07:59] VITALS: BP 119/76
[2024-11-29 09:11] LABS: Percent Saturation 28.2 % (20.0-50.0)
--- NOTE | 2024-11-29 15:22 | NUR ---
PT TRANSFERRED TO RM 213, REPORT GIVEN TO LALITO SR CALLED AND MADE AWARE OF THE TRANSFER. NO ACUTE CHANGE FOR THE SHIFT, PT PARTICIPATED WITH THERAPY THIS MORNING, PT HAS BEEN UP IN THE CHAIR MOST OF THE SHIFT. NO COMPLAINS REPORTED, VSS, REMAINS ON 4L OF O2. ALL BELONGINGS SENT WITH THE PT. PT ACCOMPANIED VIA WHEELCHAIR
--- NOTE | 2024-11-29 15:44 | NUR ---
patient to room 213 @ 1505 patient in chair on 3l nc. aox4, call light in reach. denies pain, sob, chest pressure. denies needs at this time.
--- NOTE | 2024-11-29 15:50 | NUR ---
ASSUMED CARE OF PT FROM KAITLYNN SR. PT RESTING PEACEFULLY IN RECLINER W/ CALL LIGHT IN REACH.
[2024-11-29] MEDS ORDERED: Ferrous Sulfate 325 MG Tab PO SCH (17:00)
--- NOTE | 2024-11-29 18:03 | NUR ---
UPDATE PT HAS BEEN RESTING IN CHAIR SINCE ASSUMPTION OF CARE, SPOUSE AT BEDSIDE VISITING. 4LNC IN PLACE. PT HYPERGLYCEMIC BEFORE DINNER, DR. FELDMAN NOTIFIED AND CHANGED ORDERS. CALL LIGHT IN REACH.
[2024-11-29 19:33] VITALS: BP 123/72
[2024-11-29 19:54] VITALS: BP 123/68
[2024-11-29] MEDS ORDERED: Insulin Glargine-Yfgn 100 Unit/mL 3 ML SYR SC SCH (21:00)
[2024-11-29 21:49] LABS: Vancomycin, Trough 19.9 ug/mL (5.0-10.0)
[2024-11-30] VITALS (8 sets, daily range): BP systolic 131–152; BP diastolic 70–83
--- NOTE | 2024-11-30 04:36 | NUR ---
SHIFT SUMMARY NO ACUTE CHANGES THIS SHIFT. PT VITALS STABLE AND OXYGEN SATURATION MAINTAINED ABOVE 90% ON 3-4 L NC. PT REPORTS DYSPNEA W/ EXERTION. PT USES CALL LIGHT APPROPRIATELY AND USES BEDSIDE COMMODE/URINAL NEEDED. SOME REDNESS NOTED ON COCCYX AREA, MEPILEX APPLIED. PT HAS 3+ PITTING EDEMA ON BLE LEGS ELEVATED W/PILLOWS. PT HAS NON PRODUCTIVE COUGH, ENCOURAGED DEEP BREATHING. PLAN TO D/C TO SNF
[2024-11-30 05:37] LABS: Hematocrit 22.4 % (37.0-53.0); Hemoglobin 7.3 g/dL (13.5-17.5); Mean Corpuscular HGB 30.5 pg (26.0-34.0); Mean Corpuscular HGB Conc 32.6 g/dL (31.5-36.5); Mean Corpuscular Volume 94 fL (80-100); Mean Platelet Volume 10.2 fL (9.1-12.4); NRBC ABSOLUTE 0.03 K/mm3 (0.00-0.02); NRBC Auto 0.2 /100 WBC (0.0-0.2); Platelet Count 225 K/mm3 (150-400); RDW Coefficient Variation 16.2 % (11.7-14.2); RDW Standard Deviation 54.6 fL (35.1-46.3); Red Blood Cell Count 2.39 M/mm3 (4.30-5.90); White Blood Cell Count 16.64 K/mm3 (4.00-11.30)
[2024-11-30 06:01] LABS: Bun/Creatinine Ratio 78.4 (12.0-20.0); Calcium, Blood 8.5 mg/dL (8.5-10.1); Creatinine, Blood 1.02 mg/dL (0.60-1.20)
[2024-11-30] MEDS ORDERED: Insulin Human Lispro 100 Units/ML 3ML Syringe SC SCH (07:30)
--- NOTE | 2024-11-30 08:21 | NUR ---
PT TX TO CHAIR FOR BREAKFAST, PT WITH INCREASED SOB W/EXCERTION, MOD RECOVERY TIME. O2 SAT REMAINED <88% DURING TX, 94% ON 3L HFNC AT REST.
[2024-11-30] MEDS ORDERED: Albuterol 2.5 MG/3 ML VIAL INH PRN (08:40)
[2024-11-30] MEDS ORDERED: STIOLTO RESPIMAT INH SCH (08:45)
--- NOTE | 2024-11-30 17:17 | NUR ---
SHIFT SUMMARY THIS RN ASSUMED CARE AT APPROX 0715. PATIENT ALERT AND ORIENTED X4. SOFT, MUMBLED SPEECH. IS [place] - HEARING AIDES AT BEDSIDE. COMMUNICATES NEEDS EFFECTIVELY. VSS. TELEMETRY SHOWING SINUS 70s PER BOAT JOINER - NO EVENTS REPORTED. SBP 130s. MAP >65. DENIES CHEST PAIN, PRESSURE. +2 EDEMA TO BLE - IV LASIX ADMINISTERED PER EMAR. TITRATED TO 2L VIA NC, SATs 88-92%. SHORTNESS OF BREATH WITH MOBILITY THAT IMPROVES AT REST. AMBULATING WITH 2P ASSIST FWW GB TO CHAIR OR BSC. UP IN CHAIR MAJORITY OF THE DAY. VOIDING. X1 BM. TOLERATING PO INTAKE - MANAGING GLUCOSE LEVEL PER EMAR. BEDBATH COMPLETED TODAY. CALL LIGHT IN REACH.
[2024-12-01 04:06] VITALS: BP 131/73
[2024-12-01 05:49] LABS: Hemoglobin 7.1 g/dL (13.5-17.5); Mean Corpuscular HGB 30.2 pg (26.0-34.0); Mean Corpuscular HGB Conc 32.3 g/dL (31.5-36.5); Mean Corpuscular Volume 94 fL (80-100); Mean Platelet Volume 10.2 fL (9.1-12.4); NRBC ABSOLUTE 0.03 K/mm3 (0.00-0.02); NRBC Auto 0.2 /100 WBC (0.0-0.2); Platelet Count 224 K/mm3 (150-400); RDW Coefficient Variation 16.6 % (11.7-14.2); Red Blood Cell Count 2.35 M/mm3 (4.30-5.90); White Blood Cell Count 16.44 K/mm3 (4.00-11.30)
[2024-12-01 06:08] LABS: Calcium, Blood 8.3 mg/dL (8.5-10.1); Potassium, Blood 3.8 mmol/L (3.5-5.5)
[2024-12-01 07:09] VITALS: BP 122/73
--- NOTE | 2024-12-01 07:27 | NUR ---
NURSES NOTES; PATIENT UP TO BSC FOR BM. THEN IN BED FOR THE NIGHT, GAVE PRN TYLENOL AND AMBIEN. TELE SR 76. REFUSED [place].
[2024-12-01] MEDS ORDERED: FERSU300 PO (10:14)
[2024-12-01] MEDS ORDERED: ELIQUIS5 M2 PO (10:14)
[2024-12-01] MEDS ORDERED: SENNA LAXATIVE8.6 MG PO (10:15)
[2024-12-01] MEDS ORDERED: STIOLTO RESPIMAT4 G1 PO (10:16)
[2024-12-01] MEDS ORDERED: DOXY100 PO (10:16)
[2024-12-01] MEDS ORDERED: VISBIOME 112.51 EACH PO (10:18)
[2024-12-01 11:14] VITALS: BP 169/67
[2024-12-01 11:16] VITALS: BP 159/69
--- NOTE | 2024-12-01 11:40 | NUR ---
DISCHARGE NOTE THIS RN ASSUMED CARE AT APPROX 0715. PATIENT ALERT AND ORIENTED X4. IS [place] - HEARING [place]ID[place] AT BEDSIDE. COMMUNICATES NEEDS EFFECTIVELY. VSS. TELEMETRY SHOWING SINUS WITH PVCs 70s PRIOR TO REMOVAL - NO EVENTS REPORTED. DENIES CHEST PAIN, PRESSURE. ON 1-2L VIA NC, SATs 88-92%. SHORTNESS OF BREATH WITH MOBILITY THAT EASES AT REST. AMBULATING WITH 1-2P ASSIST FWW GB DEPENDING ON WEAKNESS. VOIDING. DC TO [facility]. REPORT GIVEN TO MAYANK SR TO ASSUME CARE FOLLOWING TRANSFER. IV AND TELEMETRY REMOVED. PATIENT TRANSFERRED OFF UNIT VIA TRANSPORT AT APPROX 1135. PERSONAL BELONGINGS WITH PATIENT.
== END 2024-12-01 11:35 | DRG 199 ==
LOC: ER 12:30 → ERHOLD 12:31 → PCU 11-19 01:21 → SURS 11-29 15:08
PROVIDERS: Emergency Medicine; Family Medicine; Internal Medicine; Internal Medicine Critical Care Medicine; Student in an Organized Health Care Education/Training Program; ADMIT Internal Medicine
PROC: 0W9930Z Drainage of Right Pleural Cavity with Drainage Device, Percutaneous Approach (ICD-10-PCS; principal; 2024-11-21)
PROC: 30233N1 Transfusion of Nonautologous Red Blood Cells into Peripheral Vein, Percutaneous Approach (ICD-10-PCS; 2024-11-26)
PROC: 5A0935A Assistance with Respiratory Ventilation, Less than 24 Consecutive Hours, High Flow/Velocity Cannula (ICD-10-PCS; 2024-11-26)
DX: J93.9 Pneumothorax, unspecified (principal); I21.4 Non-ST elevation (NSTEMI) myocardial infarction; J18.9 Pneumonia, unspecified organism; J96.01 Acute respiratory failure with hypoxia; J94.8 Other specified pleural conditions; I13.0 Hypertensive heart and chronic kidney disease with heart failure and stage 1 through stage 4 chronic kidney disease, or unspecified chronic kidney disease; N18.4 Chronic kidney disease, stage 4 (severe); I50.32 Chronic diastolic (congestive) heart failure; E87.1 Hypo-osmolality and hyponatremia; J44.1 Chronic obstructive pulmonary disease with (acute) exacerbation; J90 Pleural effusion, not elsewhere classified; J44.0 Chronic obstructive pulmonary disease with (acute) lower respiratory infection; I48.92 Unspecified atrial flutter; N17.9 Acute kidney failure, unspecified; E78.5 Hyperlipidemia, unspecified; I48.91 Unspecified atrial fibrillation; E11.22 Type 2 diabetes mellitus with diabetic chronic kidney disease; E66.01 Morbid (severe) obesity due to excess calories; I44.30 Unspecified atrioventricular block; E11.649 Type 2 diabetes mellitus with hypoglycemia without coma; D63.1 Anemia in chronic kidney disease; D50.9 Iron deficiency anemia, unspecified; Z96.619 Presence of unspecified artificial shoulder joint; Z92.21 Personal history of antineoplastic chemotherapy; Z92.3 Personal history of irradiation; Z90.49 Acquired absence of other specified parts of digestive tract; Z98.42 Cataract extraction status, left eye; Z99.81 Dependence on supplemental oxygen; Z98.41 Cataract extraction status, right eye; Z98.890 Other specified postprocedural states; Z87.09 Personal history of other diseases of the respiratory system; Z79.52 Long term (current) use of systemic steroids; Z79.51 Long term (current) use of inhaled steroids; Z79.899 Other long term (current) drug therapy; Z79.4 Long term (current) use of insulin; Z79.82 Long term (current) use of aspirin; Z87.891 Personal history of nicotine dependence; Z79.85 Long-term (current) use of injectable non-insulin antidiabetic drugs; Z85.118 Personal history of other malignant neoplasm of bronchus and lung; Z68.34 Body mass index [BMI] 34.0-34.9, adult
CPT/HCPCS: 0528U; 32551; 36415; 36430; 71045; 71046; 71250; 80048; 80053; 80202; 80400; 82042; 82533; 82728; 82803; 82945; 82947; 83540; 83550; 83605; 83615; 83880; 83986; 84145; 84157; 84466; 84478; 84484; 85014; 85018; 85025; 85027; 86140; 86850; 86900; 86901; 86923; 87040; 87070; 87075; 87205; 87428-QW; 88108; 88305; 88341; 88342; 89051; 93005; 93010; 94640; 94660; 94664; 94760; 94762; 96365; 96366; 96367; 96375; 97110; 97161; 97165; 97530; 97535; 99285-25; A9270; C1751; G0378; J0295; J0456; J0692; J0696; J0834; J1815; J1940; J2185; J2919; J3010; J3370; J7040; J7050; J7512; P9016

== ENCOUNTER 2024-12-15 23:29 | Inpatient (IN) | payer OTHER ==
[~2024-12-15] VITALS: Ht 177.8 cm; Wt 109.5 kg
[~2024-12-15 23:29] MED LIST changes: +DOXY100 PO; +ELIQUIS5 M2 PO; +FERSU300 PO; +SENNA LAXATIVE8.6 MG PO; +STIOLTO RESPIMAT4 G1 PO; +VISBIOME 112.51 EACH PO
[2024-12-16 00:14] LABS: BASOPHILS ABSOLUTE AUTO 0.02 K/mm3 (0.00-0.23); BASOPHILS PERCENT AUTO 0 % (0-2); EOSINOPHILS ABSOLUTE AUTO 0.04 K/mm3 (0.00-0.68); EOSINOPHILS PERCENT AUTO 0 % (0-6); Hematocrit 22.6 % (37.0-53.0); Hemoglobin 7.1 g/dL (13.5-17.5); IMMATURE GRAN ABSOLUTE AUTO 0.33 K/mm3 (0.00-0.10); IMMATURE GRAN PERCENT AUTO 3 % (0-1); LYMPHOCYTES ABSOLUTE AUTO 0.34 K/mm3 (0.84-5.20); LYMPHOCYTES PERCENT AUTO 3 % (21-46); MONOCYTES ABSOLUTE AUTO 1.53 K/mm3 (0.16-1.47); MONOCYTES PERCENT AUTO 13 % (4-13); Mean Corpuscular HGB 31.4 pg (26.0-34.0); Mean Corpuscular HGB Conc 31.4 g/dL (31.5-36.5); Mean Corpuscular Volume 100 fL (80-100); Mean Platelet Volume 9.3 fL (9.1-12.4); NEUTROPHILS ABSOLUTE AUTO 9.74 K/mm3 (1.96-9.15); NEUTROPHILS PERCENT AUTO 81 % (41-73); NRBC ABSOLUTE 0.03 K/mm3 (0.00-0.02); NRBC Auto 0.3 /100 WBC (0.0-0.2); Platelet Count 150 K/mm3 (150-400); RDW Standard Deviation 73.9 fL (35.1-46.3); Red Blood Cell Count 2.26 M/mm3 (4.30-5.90)
[2024-12-16 00:34] LABS: Albumin, Blood 2.2 g/dL (3.4-5.0); Albumin/Globulin Ratio 0.6 (0.8-1.8); Bilirubin, Total 0.4 mg/dL (0.1-1.0); Bun/Creatinine Ratio 43.8 (12.0-20.0); Calcium, Blood 8.2 mg/dL (8.5-10.1); Creatinine, Blood 1.44 mg/dL (0.60-1.20); Globulin, Blood 3.8 g/dL (2.2-4.0); Potassium, Blood 4.3 mmol/L (3.5-5.5)
[2024-12-16 01:39] LABS: Influenza A, PCR NEGATIVE (NEGATIVE); Influenza B, PCR NEGATIVE (NEGATIVE); Resp Syncytial Virus, PCR NEGATIVE (NEGATIVE); SARS-Cov-2 (COVID-19) PCR, MMC NEGATIVE (NEGATIVE)
[2024-12-16] MEDS ORDERED: DULCOEASE PO (01:57)
[2024-12-16] MEDS ORDERED: Acetaminophen650 M1 PO (02:00)
[2024-12-16 04:06] LABS: Source, Urine Clean Catch
[2024-12-16 04:11] LABS: Bilirubin, Urine Neg (Neg); Blood, Urine 5+ (Neg); Glucose Qualitative, Urine Neg (Neg); Ketones, Urine Neg (Neg); Leukocyte Esterase, Urine Neg (Neg); Nitrite, Urine Neg (Neg); Protein, Urine 2+ (Neg); Specific Gravity, Urine 1.015 (1.003-1.022); Urobilinogen, Urine NORM (Normal)
[2024-12-16 04:18] LABS: Appearance, Urine Clear (Clear); Color, Urine Yellow (P-Yellow)
[2024-12-16 04:25] LABS: Amorphous Light (0-Heavy); Bacteria Not Seen /hpf; Squamous Epithelial Cells Not Seen /hpf (Few); White Blood Cells, Urine Not Seen /hpf (0-5)
[2024-12-16] MEDS ORDERED: Ondansetron HCl 2 MG / ML 2ML Vial IV PRN (06:00)
[2024-12-16] MEDS ORDERED: FLU VACC TS2024-25(6MOS UP)/PF 45 MCG/0.5 ML SYRINGE IM ONE (06:00)
[2024-12-16] MEDS ORDERED: Ipratropium/Albuterol SulF 2.5-0.5MG/3 ML Amp INH PRN (06:05)
[2024-12-16] MEDS ORDERED: Azithromycin 500 MG in NS 250 ML IV SCH (06:13)
[2024-12-16] MEDS ORDERED: CefTRIAXone Sodium 1,000 MG in NS 100 ML IV SCH (06:14)
[2024-12-16] MEDS ORDERED: Albumin (Human) 25gm/100ml 100 ML IV ONE (06:20)
[2024-12-16] MEDS ORDERED: MethylPREDNISolone Sod Succ 125 MG Vial IV SCH (07:00)
[2024-12-16] MEDS ORDERED: Furosemide 10 MG/ML 4ML Vial IV SCH (07:00)
[2024-12-16 09:15] LABS: Base Excess Venous 14.5 mmol/L; Bicarbonate Venous 36.8 mmol/L (24.0-30.0); PCO2 Venous 62.7 mmHg (38-42)
[2024-12-16 09:17] LABS: International Normalized Ratio 1.04; Prothrombin Time Results 11.1 Sec (9.7-11.5)
[2024-12-16 10:30] VITALS: BP 107/63
--- NOTE | 2024-12-16 12:31 | NUR ---
UPDATE: PT ARRIVED TO PCU 20 AT APPROX 1000 VIA GURNEY FROM ED. PT ARRIVES ON 2L NC MAINTAINING O2 SAYS >90%. PT VERY DROUSY AND DIFFICULT TO KEEP AWAKE. PT RESPONDING IN SINGLE WORDS. ABLE TO STATE THAT WE ARE AT [facility]. PT HAVING APNEA WITH RESPIRAIONS LESS THEN 12. RT CALLED AND PT PLACED ON BIPAP. UPON VITALS PT WAS FOUND TO BE HYPOTHERMIC WITH A RECTAL TEMP OF 93.8. PT PLACED ON BEAR HUGGER. B/P STABLE. MAP >65. PT PUFFY EVERYWHERE AND UNABLE TO OBTAIN A SECOND PERIPHERAL IV. POWERGLIDE PLACED TO SIMONE. PT BEGINING TO GET ADGITATED AND REPATIDLY KEEP PULLING BIPAP OFF FACE. PT WAKING UP MORE AT THIS TIME AND ANSERING QUESTIONS BETTER. PT PLACED ON NC TO GET A BREAK FROM BIPAP. FAMILY AT BEDSIDE. PALLIATIVE CARE AT BEDSIDE TO TALK TO PT AND FAMILY ABOUT PLAN OF CARE. PT REMAINS ON BEAR HUGGER. TEMP IS 95.1 AT THIS TIME. VS REMAIN STABLE. WILL CONTINUE TO CARE FOR PT TILL END OF SHIFT.
--- NOTE | 2024-12-16 12:58 | NUR ---
PT IS A READMISSION, HE WAS MOST RECENTLY ADMITTED FOR PNEUMONIA WITH HYDROPNEUMOTHORAX. HE WAS ALSO RECENTLY TREATED FOR SMALL CELL LUNG CANCER WITH RADTIATION AND CHEMO. ACCORDING TO FAMILY, HIS HEALTH GOT THE "WORST IT'S EVER BEEN" SINCE COMPLETING TREATMENT. THE PATIENT HAS A DIAGNOSIS OF SEVERE COPD WITH BULLOUS EMPHYSEMA. OTHER DIAGNOSES INCLUDE: HTN, HLD, CKD STAGE 4, CHRONIC DIASTOLIC HEART FAILURE AND DM TYPE 2. PT'S ADVANCE DIRECTIVE IS SLIGHTLY CONFUSING GIVEN ONE OF THE BOXES HE CHECKED, BUT HE CLARIFIED TO HIS FAMILY AND THIS RN TODAY, HE WOULD NOT WANT TO LIVE ON LIFE SUPPORT WHICH LINES UP WITH THE REST OF HIS AD DECISIONS. REPORTS THE PATIENT HAS BEEN STATING HE IS "MISERABLE" AT HOME, AND TAKES APPROXIMATELY 3 HOURS DAILY TO GET FROM HIS BED INTO HIS CHAIR, WHERE HE FALLS ALSEEP FOR THE MOST OF THE DAY. DISCUSSED WITH PT HIMSELF AND STATES HE WANTS TO FOCUS ON COMFORT CARE, DOES NOT WISH TO PURSUE FURTHER TREATMENTS. DISCUSSED WITH DR. MENDOSA WHO WILL REVIEW PT'S CHART AND MEET WITH HIM AND FAMILY TODAY PRIOR TO CHANGING ORDER TO COMFORT CARE.
[2024-12-16 13:32] VITALS: BP 111/70
[2024-12-16] MEDS ORDERED: Atropine Sulfate 1% Opth Soln 2ML BTL SL PRN (13:55)
[2024-12-16] MEDS ORDERED: Scopolamine Hydrobromide Patch TOP PRN (13:55)
[2024-12-16] MEDS ORDERED: Morphine Sulfate 20 MG/1ML 1 ML Oral Syringe SL PRN (13:55)
[2024-12-16] MEDS ORDERED: Acetaminophen 325 MG TABLET PO PRN (13:55)
[2024-12-16] MEDS ORDERED: LORazepam 1 MG Tab PO PRN (13:55)
[2024-12-16] MEDS ORDERED: Morphine Sulfate 10 MG/ML 1MLSYR IV PRN (14:10)
[2024-12-16] MEDS ORDERED: LORazepam 2 MG/ML 1ML Injection IV PRN (14:10)
--- NOTE | 2024-12-16 14:30 | NUR ---
ADDED IV MEDICATION TO PRN COMFORT MEDS PT HAS SEVERE COPD AND MAY NEED IV MEDS FOR COMFORT IF PO NOT EFFECTIVE. BEDSIDE RN AWARE.
--- NOTE | 2024-12-16 18:15 | NUR ---
SHIFT SUMMARY: PT CHANGED TO COMFORT CARE THIS MORNING AROUND 1200. SINCE PT HAS BEEN RESTING COMFORTABLY IN BED. PT HAS REQUESTED TO GO ON THE BIPAP OF AND ON THROUGHOUT THE DAY WHEN HE IS FEELING SOB AND WANTS TO GO TO SLEEP. PT AWAKE AND ALERT MOST OF THE DAY. ANSWERS QUESTIONS AND IS ABLE TO CARRY ON A CONVERSATION WITH THIS RN AND FAMILY. PT ASSISTED WITH URINAL IN BED AND HAS HAD ALOT OF URINARY OUTPUT. FAMILY HAS BEEN IN AND OUT OF THE ROOM THROUGHOUT THE DAY. PT HAS A GOOD APPETITE AND IS TOLERATING PO INTAKE WELL. NO SIGNIFICANT EVENTS HAPPENED SINCE ARRIVAL TO THIS UNIT. WILL CONTINUE TO CARE FOR PT TILL END OF SHIFT.
--- NOTE | 2024-12-16 18:22 | NUR ---
REPORT FROM STACIE FOR REPORT. TRANSFERRING FROM [facility] TO [facility].
--- NOTE | 2024-12-16 19:32 | NUR ---
PATIENT ARRIVED TO FLOOR AT SHIFT CHANGE. INTRODUCED SELF AND YOGA COORDINATOR RN. NO ACUTE NEEDS. SON AT BEDSIDE. BED IN LOWEST POSITION. CALL LIGHT WITHIN REACH.
--- NOTE | 2024-12-17 05:27 | NUR ---
SUMMARY: PT BEGAN SHIFT A/OX2-3, WAS INTERACTING W/FAMILY AT BEDSIDE AND WAS ABLE TO ENDORSE NEEDS BUT HAS SINCE PROGRESSIVELY DETERIORATED T/O NOCTE. HE'S SHOWN INCREASED AIR HUNGER, DYSPNEA AND RESP DISTRESS W/HEIGHTENED ANXIETY AND CONFUSION WA. PT MEDICATED REGULARLY W/PRN ROXINOL AND IV ATIVAN TO MAINTAIN COMFORT. HE'S NOW MUCH MORE DROWSY AND LETHARGIC, ROUSING TO VOICE, BUT NO LONGER INERACTING APPROPRIATELY AND APPEARS TO BE HALLUCINATING. SCOPALAMINE PATCH APPLIED FOR INCREASED ORAL SECREATIONS. PT HASN'T VOIDED THIS SHIFT AND GENERAL ANASARCA IS WORSENING. TURN SCHEDULE MAINTAINED AND EXT'S FLOATED FOR SBD PREVENTION. HE ATTEMPTED BIPAP MASK PER REQUEST ININTIALY BUT DIDN'T TOLERATE IT AND IS NOW HAVING O2 TITRATED FOR COMFORT. PT APPEARS DUSKY, PALE AND DIAPHORETIC. HIS SON (RUSSELL) WAS UPDATED TO CHANGES T/O NOCTE AND INTENDED TO RELAY INFO TO PT'S SEMAJ. WILL REPORT TO DAY RN.
--- NOTE | 2024-12-17 17:20 | NUR ---
Spiritual care visit conducted. Patient is actively transitioning and family is tearful and quiet. I conduct a life review learning about his 36 yr long career in the [employer] industry, his 4 wives (2 of which are present in the room), his ornery personality and his love for the outdoors and hunting and fishing. The family tell stories and they are laughing and and telling on him and honoring him at the same time. I learn of the hard work ethic, the depth of love for family and the things in life that he endured. I normalize their feelings, reinforce helpful attitudes, highlight the gift of their presence and love and provide a calming presence. I will contiue to remain available to the family.
--- NOTE | 2024-12-17 17:45 | NUR ---
SHIFT SUMMARY PATIENT ON COMFORT CARE. FAMILY AT BEDSIDE THROUGHOUT THE DAY. PATIENT MEDICATED PER MAR FOR COMFORT. PALLIATIVE CARE AND PASTORAL CARE IN TO VISIT WITH FAMILY. PATIENT NON RESPONSIVE, AGANAL BREATHING, PATIENT SUCTIONED X1 FOR FROTHY ORAL SECRETIONS. PATIENT TURNED FREQUENTLY.
--- NOTE | 2024-12-17 20:57 | NUR ---
PT EXPIRATION NOTE AT 2046 PTS FAMILY WHO WERE AT THE BEDSIDE, REPORTED THE PT . 2 NURSES (MYSELF AND ADITYA) ASSESSED PT, NO HEART BEAT, NO RESPIRSTIONS, NO PULSE. MD NOTIFIED AND PT WAS PRONOUNCED. FAMILY AGREED TO TAKE HOME PTS BELONGINGS. THEY ALSO STATED THEY HAD MADE ARRANGEMENTS WITH [facility] IN [place], OR FOR PT CARE. CHARGE NURSE FOLLOWING UP WITH ROUTINE PAPERWORK. WILL CONTINUE TO ASSIST FAMILY WITH NEEDS.
--- NOTE | 2024-12-17 21:22 | NUR ---
FAMILY REFUSED PASTORAL CARE VISIT.
--- NOTE | 2024-12-17 23:08 | NUR ---
ARCHITECT MARINE HERE TO TAKE BODY TO MORTUARY
== END 2024-12-17 20:47 | DRG 291 ==
LOC: ER 23:29 → ERHOLD 12-16 06:32 → MEDS 12-16 06:32 → PCU 12-16 10:32 → MEDS 12-16 18:21
PROVIDERS: Emergency Medicine; Internal Medicine; ADMIT Internal Medicine
PROC: 5A09357 Assistance with Respiratory Ventilation, Less than 24 Consecutive Hours, Continuous Positive Airway Pressure (ICD-10-PCS; principal; 2024-12-16)
PROC: 30233J1 Transfusion of Nonautologous Serum Albumin into Peripheral Vein, Percutaneous Approach (ICD-10-PCS; 2024-12-16)
DX: I13.0 Hypertensive heart and chronic kidney disease with heart failure and stage 1 through stage 4 chronic kidney disease, or unspecified chronic kidney disease (principal); I50.33 Acute on chronic diastolic (congestive) heart failure; J96.21 Acute and chronic respiratory failure with hypoxia; J18.9 Pneumonia, unspecified organism; J44.1 Chronic obstructive pulmonary disease with (acute) exacerbation; N18.4 Chronic kidney disease, stage 4 (severe); N17.9 Acute kidney failure, unspecified; J44.0 Chronic obstructive pulmonary disease with (acute) lower respiratory infection; Z51.5 Encounter for palliative care; Z66 Do not resuscitate; E11.22 Type 2 diabetes mellitus with diabetic chronic kidney disease; E66.01 Morbid (severe) obesity due to excess calories; I48.91 Unspecified atrial fibrillation; D63.1 Anemia in chronic kidney disease; E78.5 Hyperlipidemia, unspecified; R79.1 Abnormal coagulation profile; J43.9 Emphysema, unspecified; D49.1 Neoplasm of unspecified behavior of respiratory system; N40.0 Benign prostatic hyperplasia without lower urinary tract symptoms; Z85.118 Personal history of other malignant neoplasm of bronchus and lung; Z92.21 Personal history of antineoplastic chemotherapy; Z92.3 Personal history of irradiation; Z99.81 Dependence on supplemental oxygen; Z79.52 Long term (current) use of systemic steroids; Z79.4 Long term (current) use of insulin; Z79.01 Long term (current) use of anticoagulants; Z79.82 Long term (current) use of aspirin; Z87.891 Personal history of nicotine dependence; Z68.35 Body mass index [BMI] 35.0-35.9, adult
CPT/HCPCS: 0241U; 71045; 71260; 80053; 81001; 82803; 83880; 84484; 85025; 85379; 85610; 93005; 93010; 94640; 94660; 94664; 94760; 94762; 99285-25; A9270; J0456; J0696; J1940; J2060; J2919; J7050; P9047; Q9967